=== PATIENT | male | born 1935 | race Caucasian/White ===

== ENCOUNTER 2016-09-18 10:07 | Inpatient (IN) | payer OTHER ==
--- NOTE | 2016-09-18 11:43 | PROVIDER DOCUMENTATION ---
HPI-Syncope/Dizziness - General Chief Complaint: Fall Stated Complaint: DIZZINESS/VOMITING Time Seen by Provider: 09/18/16 11:08 Source: patient Allergies/Adverse Reactions: Patient Allergies Allergy/AdvReac Type Severity Reaction Status Date / Time No Known Allergies Allergy Verified 03/30/16 09:45 Home Medications: Home Medication List Medication Instructions Recorded Confirmed Last Taken Type Home Meds Unobtainable 03/30/16 03/30/16 Unknown History - History of Present Illness-Syncope/Dizzy Nature of Presenting Problem: Pt is 81 y/o M presents to the ED with dizziness. Pt states feeling dizzy then falling. Pt denies pain or injury. Pt's family member states he has not ate in three days due to feeling as if he can not swallow food. Pt denies N/V/D. Pt denies hitting head. Prior Episodes: reports: multiple episodes today Onset/Duration: reports: other (2 weeks) Timing: reports: still present, intermittent Position/Activity at time of episode: reports: standing Symptoms prior to episode: reports: injury (fall). denies: headache, lightheaded, visual disturbance, nausea/vomiting, chest pain, racing heart, abdominal pain, back pain, confusion, diaphoresis, recent head trauma, rapid heart beat Context: reports: other (fall) Loss of Consciousness: no loss of consciousness Location of injury. (If syncope resulted in an injury.): reports: none Current Symptoms: reports: dizzy. denies: fever, chills, sweaty, chest pain, breathing difficulty, short of breath, abdominal pain, nausea, vomiting, shoulder pain, arm pain, weakness, lightheaded, headache, pale, weak pulse, headache, blurred vision, lightheaded Recently Seen Here or By Another Healthcare Provider: No - Dizziness Severity in ED: reports: mild Dizziness Related Current/Associated Symptoms: reports: none/feels normal Any recent trauma/injury?: reports: none Modifying Factors: improves with: nothing Patient usually:: reports: walks without assistance Review of Systems - Adult - REVIEW OF SYSTEMS - ADULT Constitutional: denies: chills, fever Eyes: denies: blurred vision, double vision Ears, Nose, Mouth & Throat: denies: ear pain, nose pain, throat pain Cardiovascular: reports: irregular heart rate (tachy). denies: chest pain, heart murmur Respiratory: reports: shortness of breath. denies: cough, wheezing Gastrointestinal: reports: poor appetite. denies: abdominal pain, diarrhea, nausea, vomiting Genitourinary: denies: dysuria, hematuria Musculoskeletal: denies: bone pain, joint pain, neck pain Integumentary: denies: hives, itching Neurological: reports: dizziness/vertigo (dizziness). denies: headache/ migraines Psychiatric: reports: no symptoms reported Endocrine: reports: no symptoms reported Hematologic/Lymphatic: reports: no symptoms reported Allergic/Immunologic: reports: no symptoms reported All Other Systems: Reviewed and Negative Past History - Adult - PAST MEDICAL HISTORY-ADULT Review of Records: reports: Nursing Assessment Review, Medications Reviewed, Social history reviewed & non-contributory. Major Childhood Illnesses: reports: denies history Cardiovascular: reports: HTN Respiratory: reports: COPD Gastrointestinal: reports: denies history Obstetrical/Gynecological: reports: denies history Genitourinary: reports: denies history Musculoskeletal: reports: denies history Neurological: reports: denies history Endocrine/Immune: reports: denies history Other Conditions: reports: denies history - PRIOR SURGERIES/PROCEDURES Surgical/Procedure History: reports: none - IMMUNIZATION STATUS Childhood Immunizations: See Nurse Assessment Flu Vaccine: See Nurse Assessment - FAMILY HISTORY Family History: reviewed, not pertinent - SOCIAL HISTORY Smoking: cigarettes, greater than 1 pack/day Provider spent 3-5 mins advising pt. on dangers of tobacco.: Discussed manners to quit use, and f/u contacts for add'l counseling. Substance Use: denies Living Situation: family Physical Exam-General - PHYSICAL EXAM-ADULT Initial Vital Signs Reviewed: Yes - CONSTITUTIONAL General Appearance: appears well, alert, no apparent distress - EYES Eyes: PERRL/EOMI, pink conjunctivae, fundi clear, no AV nicking - HEAD, EARS, NOSE, MOUTH & THROAT HENMT: normocephalic/atraumatic, normal ENT inspection, TMs normal, pharynx normal. negative: moist mucous membranes (dry) - NECK Neck: non-tender, full range of motion, supple, normal inspection - RESPIRATORY Respiratory: chest non-tender, lungs clear, normal breath sounds, no pleuratic chest pain, no respiratory distress, no accessory muscle use - CARDIOVASCULAR Cardiovascular: normal peripheral pulses, no edema, no gallop, no JVD, no murmur , tachycardia - GASTROINTESTINAL (ABDOMEN) Abdominal Exam: normal bowel sounds, non tender, soft, no organomegaly, no pulsatile mass - LYMPHATIC Lymphatic: no adenopathy - MUSCULOSKELETAL Back Exam: normal inspection, no CVA tenderness, no vertebral tenderness Extremity: normal range of motion, non-tender, normal gait, normal inspection, no pedal edema, no calf tenderness, normal capillary refill, pelvis stable - SKIN Integumentary: normal color, normal turgor, warm/dry - NEUROLOGIC Neurologic: quotation checker II-XII nml as tested, grossly normal, no motor/sensory deficits , positive romberg's sign - PSYCHIATRIC Psych/Mental Status: normal mood/affect, normal thought content, normal thought process, oriented x 3 Progress - PLAN OF CARE/RESULTS Progress/Plan/Lab Results: Orders Category Date Time Status Cardiac Monitoring DIRECTED Care 09/18/16 11:10 Active Finger Stick Blood Sugar (ED) DIRECTED Care 09/18/16 11:10 Active Orthostatic Vital Signs NOW Care 09/18/16 11:11 Active Take Temperature DIRECTED Care 09/18/16 10:39 Active CBC WITH ELECTRONIC DIFF [HEME] Stat Lab 09/18/16 11:10 Ordered CK PROFILE [SP CHEM] Stat Lab 09/18/16 11:10 Ordered COMPREHENSIVE METABOLIC PANEL [CHEM] Stat Lab 09/18/16 11:10 Ordered LACTATE, PLASMA [CHEM] Stat Lab 09/18/16 11:10 Ordered TROPONIN T Stat Lab 09/18/16 11:[address] W/POSS RFLX CULT [URINALYSIS] Stat Lab 09/18/16 11:[address] [URINALYSIS] Stat Lab 09/18/16 10:39 Ordered URINE DRUG SCREEN PL Stat Lab 09/18/16 11:10 Uncollected Pulse Oximetry Stat Oth 09/18/16 11:10 Active EKG [EKG] Stat Ther 09/18/16 11:10 Ordered Vital Signs - 24 hr 09/18/16 10:18 Temperature 98 F Pulse Rate 122 H Respiratory 19 Rate Blood Pressure 113/64 O2 Sat by Pulse 97 Oximetry - EKG 1 Time of EKG reading by physician:: 13:19 EKG Read and Signed by:: Martin Guerrero EKG Interpretation (*Must complete 3 of following elements*): Normal Rate: 100 Rhythm: normal sinus rhythm Comments: normal ECG - CONSULTS/PCP/HOSPITALIST Notification #1 *Consult/PCP/Hospitalist*: Dr. Loyd Time Discussed: 13:57 (Dr. Loyd accepted admit. ) Reason/Comments: Dr. Guerrero consults with Dr. Loyd about admit of Pt Consult Disposition: Admit Departure - Departure Time of Disposition Order: 13:00 DIAGNOSIS: Dizziness, Dehydration, Weakness, Hyponatremia Anemia Qualifiers: Anemia type: unspecified type Qualified Code(s): D64.9 - Anemia, unspecified Disposition: ADMITTED INPATIENT 09 Certified Medical Emergency: Emergent Condition: Stable Additional Instructions: ED Follow Up Instructions: You have been treated by a care provider in the Emergency Department. These instructions are being provided to you so you can have an understanding of how to care for yourself upon discharge. Upon discharge from the Emergency Department, you are responsible for making arrangements for follow-up care by a physician of your choice. Take all prescribed medications as directed. Return to the Emergency Department immediately for any new or worsening symptoms. You may call the Physician Referral phone number at [phone] to obtain a list of Physicians who are taking new patients. Referrals: Loco Loyd MD [Primary Care Provider] - Attestation - Scribe Verification/Attestation Scribe:: Olimpia Orosco Acting as Scribe for:: Martin Guerrero Scribe documention review:: This chart was documented by a scribe and accurately reflects the service the provider performed and the decisions made by the provider.
[2016-09-18] MEDS ORDERED: NS 500 ML IV ONE (11:44)
[2016-09-18] MEDS ORDERED: DUONEB (A & A) INH ONE (11:44)
[2016-09-18 11:59] LABS: BE -1.9 mmoll (-3.0-3.0); BLOOD TYPE ARTERIAL; DRAW SITE R RADIAL; MANUAL DIFF NEEDED? NO; METHB 1.2 % (0.0-1.5); O2(CT) 12.7 mL/dL (15.0-23.0); PCO2(98.6) 31 mmHg (35-45); PO2(98.6) 76 mmHg (60-100); SAMPLE BLOOD; SAO2 97.2 % (95.0-100.0); THB 9.6 g/dL (11.5-17.4); pH(98.6) 7.45 (7.35-7.45)
[2016-09-18 12:02] LABS: ALLEN TEST YES; MODALITY ROOM AIR
[2016-09-18 12:07] LABS: BASO% 0.2 % (0.0-0.8); EOS# 0.08 X1000 (0.0-0.7); EOS% 0.7 % (0.0-10.0); HEMATOCRIT 28.1 % (42.0-52.0); HEMOGLOBIN 8.9 g/dL (14.0-18.0); IMM GRAN# 0.06 X1000 (0.0-0.04); IMM GRAN% 0.5 % (0.0-0.5); LYMPH# 0.52 X1000 (1.2-3.4); LYMPH% 4.4 % (20.5-51.1); MCH 24.7 PG (27-31); MCHC 31.7 g/dL (33-37); MCV 77.8 FL (81-99); MONO# 1.81 X1000 (0.11-0.59); MONO% 15.3 % (1.7-9.3); MPV 9.5 FL (7.4-10.4); NEUT% 78.9 % (42.2-75.2); PLT 553 X1000 (130-400); RBC 3.61 XMIL (4.7-6.1)
[2016-09-18 12:16] LABS: AGAP 11; ALBUMIN 2.6 g/dL (3.5-5.0); ALKALINE PHOSPHATASE 78 U/L (32-122); BUN 20 mg/dL (8-22); CALCIUM 8.2 mg/dL (8.8-10.2); CHLORIDE 95 mmol/L (98-107); CK PROFILE 40 U/L (24-204); COSMO 258; GOT 11 U/L (10-34); GPT 7 U/L (10-44); POTASSIUM 3.8 mmol/L (3.5-5.1); SODIUM 127 mmol/L (136-145); TCO2 21 mmol/L (25-35); TOTAL PROTEIN 6.2 g/dL (6.3-8.3)
--- NOTE | 2016-09-18 13:43 | EKG Report ---
Test Performed on : 09/18/2016 1:19:14 PM Test Reason : AMS Blood Pressure : / mmHG Vent. Rate : 100 BPM Atrial Rate : 100 BPM P-R Int : 166 ms QRS Dur : 070 ms QT Int : 362 ms P-R-T Axes : 080 054 066 degrees QTc Int : 466 ms Normal sinus rhythm. Normal ECG When compared with ECG of 29-MAR-2016 17:51, No significant change was found Unconfirmed Result
--- NOTE | 2016-09-18 14:19 | Diag Imaging Result Document ---
PROCEDURE NAME: CHEST-2 VIEWS - 09/18/2016 2 VIEWS OF THE CHEST: FINDINGS: There may be COPD. There is calcification of the aorta, particularly the ascending aorta. There has been no significant change in the appearance of the chest since 03/29/2016. IMPRESSION: Stable chest.
[2016-09-18 14:39] LABS: URINE SOURCE VOIDED
[2016-09-18 14:54] LABS: BILIRUBIN URINE 1+ (NEGATIVE); BLOOD URINE NEGATIVE (NEGATIVE); CLARITY CLEAR (CLEAR); COLOR AMBER; GLUCOSE URINE NEGATIVE (NEGATIVE); LEUKOCYTES URINE TRACE (NEGATIVE); NITRITE URINE NEGATIVE (NEGATIVE); PH URINE 6.5; PROTEIN URINE 1+(30 mg/dL) mg/dL (NEGATIVE); UROBILINOGEN URINE 1+(1 mg/dL)
[2016-09-18 14:55] LABS: URINE CULTURE PL NEEDED? YES; URINE EPITHELIAL CELLS <10 /HPF (<10); URINE WBC <10 /HPF (<10)
[2016-09-18] MEDS: DUONEB (A & A) INH SCH ×3 (15:50→23:26)
[2016-09-18] MEDS: NICODERM PATCH TD SCH (17:02)
[2016-09-19] MEDS: NS 1,000 ML IV SCH ×3 (02:57→18:39)
[2016-09-19] MEDS: DUONEB (A & A) INH SCH ×7 (03:56→23:38)
[2016-09-19 04:28] LABS: C DIFF ANTIGEN PL NEGATIVE (NEGATIVE); C DIFF TOXIN PL NEGATIVE (NEGATIVE)
[2016-09-19 07:47] LABS: BASO% 0.2 % (0.0-0.8); EOS# 0.09 X1000 (0.0-0.7); EOS% 1.5 % (0.0-10.0); HEMATOCRIT 26.1 % (42.0-52.0); HEMOGLOBIN 8.2 g/dL (14.0-18.0); IMM GRAN# 0.02 X1000 (0.0-0.04); IMM GRAN% 0.3 % (0.0-0.5); LYMPH# 0.42 X1000 (1.2-3.4); MANUAL DIFF NEEDED? YES; MCH 24.6 PG (27-31); MCHC 31.4 g/dL (33-37); MCV 78.1 FL (81-99); MONO# 0.89 X1000 (0.11-0.59); MONO% 14.8 % (1.7-9.3); NEUT% 76.2 % (42.2-75.2); PLT 505 X1000 (130-400); RBC 3.34 XMIL (4.7-6.1)
[2016-09-19 07:54] LABS: AGAP 10; ALBUMIN 2.3 g/dL (3.5-5.0); ALKALINE PHOSPHATASE 89 U/L (32-122); BUN 16 mg/dL (8-22); CALCIUM 7.9 mg/dL (8.8-10.2); CHLORIDE 98 mmol/L (98-107); COSMO 268; GOT 14 U/L (10-34); GPT 7 U/L (10-44); POTASSIUM 3.5 mmol/L (3.5-5.1); SODIUM 133 mmol/L (136-145); TCO2 25 mmol/L (25-35); TOTAL PROTEIN 5.7 g/dL (6.3-8.3)
[2016-09-19 08:39] LABS: BANDS 8 % (0-1); EOS 2 % (1-10); LYMPHS 16 % (21-51); MONO 14 % (1-9)
[2016-09-19] MEDS ORDERED: TYLENOL PO PRN (10:11)
[2016-09-19] MEDS: ZOFRAN IV PRN (10:30)
[2016-09-19] MEDS: NICODERM PATCH TD SCH (11:27)
[2016-09-20] MEDS: DUONEB (A & A) INH SCH ×5 (03:32→20:21)
--- NOTE | 2016-09-20 08:50 | Diag Imaging Result Document ---
PROCEDURE NAME: HEAD/C-SPINE W/O CONTRAST - 09/19/2016 CT SCAN OF THE HEAD AND CERVICAL SPINE WITHOUT CONTRAST: INDICATION: Fall with head laceration. Preliminary interpretation was given by the on-call radiologist. FINDINGS: There is diffuse cerebral atrophy. There is deep white matter hypodensity nonspecific in appearance but likely related to microvascular disease. There is no evidence for acute infarct or hemorrhage. No midline shift or mass effect. The visualized paranasal sinuses and mastoid air cells are clear. IMPRESSION: No acute intracranial abnormality. CT CERVICAL SPINE WITH 3D RECONSTRUCTIONS: FINDINGS: Preliminary interpretation was given by the on-call radiologist. There is no prevertebral soft tissue swelling. There is no fracture or subluxation. There is multilevel degenerative disc disease and spondylosis, C3 to C7. IMPRESSION: 1. Severe spondylosis. 2. No acute abnormality of the cervical spine.
[2016-09-20] MEDS: NICODERM PATCH TD SCH (09:11)
[2016-09-20] MEDS ORDERED: XYLOCAINE-MPF 1% 5 ML ONE (09:14)
[2016-09-20] MEDS: NS 1,000 ML IV SCH ×2 (11:10→17:48)
[2016-09-20] MEDS ORDERED: DEMEROL IV ONE (14:50)
[2016-09-20] MEDS ORDERED: PHENERGAN IV ONE (14:50)
[2016-09-20] MEDS ORDERED: SODIUM CHLORIDE 0.9% INJ ONE (14:50)
--- NOTE | 2016-09-20 17:07 | Diag Imaging Result Document ---
PROCEDURE NAME: ANGIOGRAM/MESENTERIC ARTERY - 09/20/2016 CT ANGIOGRAM OF THE MESENTERIC ARTERIES WITH IV CONTRAST WITH 3D RECONSTRUCTIONS : INDICATION: Evaluate for clot. FINDINGS: There is marked atherosclerotic disease involving the aorta and branch vessels with moderate atherosclerotic plaque and calcification. No discrete aneurysm. Maximal aortic dimension is 2.8 cm. The celiac axis is patent at its origin; however, there is a focal narrowing 1 cm distal to its origin with poststenotic dilatation with an appearance suggesting median arcuate ligament syndrome. There is atherosclerotic plaque at the origin of the SMA; however, it appears narrowed less than 50%. Atherosclerotic calcification continues distally within the superior mesenteric artery. The inferior mesenteric artery is patent although there is calcification at the origin and the degree of stenosis is not adequately characterized. There is no evidence for large vessel thrombus or vascular cutoff. 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 Within the abdomen, there is perihepatic fluid. There is marked colitis involving the proximal transverse colon, extending distally through the splenic flexure, descending colon, and sigmoid colon. The entire pelvis was not included on this CT angiogram of the aorta and mesenteric arteries. The severe colitis demonstrates mucosal enhancement and prominent vessels within the mesentery. There is marked bowel wall thickening and pericolonic soft tissue stranding. There is marked retained fecal material within the cecum and ascending colon. No definite pneumatosis is identified. The liver shows no evidence for portal venous gas. There is no evidence for a pneumoperitoneum. The appendix appears normal. There is a small left pleural effusion and left basilar atelectasis. IMPRESSION: 1. Severe colitis extending from the proximal transverse colon through the sigmoid colon. The rectum was excluded from the radiographic field. There is severe bowel wall thickening as well as pericolonic inflammation and pericolonic fluid. No evidence for large vessel occlusion. No definitive pneumatosis. 2. Marked constipation ascending colon. 3. Marked scattered atherosclerotic disease. 4. 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 5. Left common iliac artery aneursym. Findings were discussed with Dr. Loyd. [facility]
[2016-09-20] MEDS: CIPRO 400 MG/D5W 200 ML IV SCH (17:46)
[2016-09-20] MEDS: FLAGYL 500 MG/NS 100 ML IV SCH (22:18)
[2016-09-21] MEDS: DUONEB (A & A) INH SCH ×7 (00:35→22:53)
[2016-09-21] MEDS: NS 1,000 ML IV SCH ×5 (01:27→23:37)
[2016-09-21] MEDS: FLAGYL 500 MG/NS 100 ML IV SCH ×3 (06:04→21:11)
[2016-09-21 06:38] LABS: HEMATOCRIT 26.9 % (42.0-52.0); HEMOGLOBIN 8.3 g/dL (14.0-18.0); MCH 24.4 PG (27-31); MCHC 30.9 g/dL (33-37); MCV 79.1 FL (81-99); MPV 9.8 FL (7.4-10.4); RBC 3.4 XMIL (4.7-6.1)
[2016-09-21 06:52] LABS: AGAP 13; ALBUMIN 2.1 g/dL (3.5-5.0); ALKALINE PHOSPHATASE 82 U/L (32-122); BUN 8 mg/dL (8-22); CALCIUM 7.7 mg/dL (8.8-10.2); CHLORIDE 100 mmol/L (98-107); COSMO 263; GOT 11 U/L (10-34); GPT 6 U/L (10-44); MAGNESIUM 1.5 mg/dL (1.5-2.7); POTASSIUM 3.3 mmol/L (3.5-5.1); SODIUM 133 mmol/L (136-145); TCO2 20 mmol/L (25-35); TOTAL PROTEIN 5.2 g/dL (6.3-8.3)
[2016-09-21] MEDS: CIPRO 400 MG/D5W 200 ML IV SCH ×2 (07:42→17:50)
[2016-09-21] MEDS: NICODERM PATCH TD SCH (08:21)
[2016-09-22] MEDS: FLAGYL 500 MG/NS 100 ML IV SCH ×3 (04:31→21:23)
[2016-09-22] MEDS: DUONEB (A & A) INH SCH ×6 (04:48→23:13)
[2016-09-22] MEDS: CIPRO 400 MG/D5W 200 ML IV SCH ×2 (05:41→17:15)
[2016-09-22] MEDS: MEGACE LIQUID PO SCH (08:00)
[2016-09-22] MEDS: NS 1,000 ML IV SCH ×3 (08:53→17:18)
[2016-09-22] MEDS: NICODERM PATCH TD SCH (10:03)
--- NOTE | 2016-09-22 18:59 | Diag Imaging Result Document ---
PROCEDURE NAME: ABDOMEN/PELVIS W/CONTRAST - 09/22/2016 CT ABDOMEN PELVIS WITH INTRAVENOUS CONTRAST: COMPARISON: 09/20/2016. FINDINGS: There is essentially stable severe descending colitis. This also involves the sigmoid and rectum. There is extremely severe constipation. All the other findings are also stable from prior. IMPRESSION: 1. No change from prior. 2. Severe distal proctocolitis. 3. Very severe constipation.
[2016-09-23] MEDS: DUONEB (A & A) INH SCH ×6 (03:28→23:09)
[2016-09-23] MEDS: FLAGYL 500 MG/NS 100 ML IV SCH ×3 (05:11→21:00)
[2016-09-23] MEDS: CIPRO 400 MG/D5W 200 ML IV SCH ×2 (06:11→16:57)
[2016-09-23] MEDS: MEGACE LIQUID PO SCH (07:16)
[2016-09-23] MEDS: NICODERM PATCH TD SCH (09:15)
[2016-09-23] MEDS: NS 1,000 ML IV SCH ×4 (09:15→19:22)
[2016-09-23] MEDS ORDERED: GOLYTELY PO ONE (11:30)
[2016-09-23] MEDS: ZOFRAN IV PRN ×2 (12:21→21:00)
[2016-09-23] MEDS ORDERED: LINZESS PO ONE (12:21)
[2016-09-23 14:01] LABS: URINE CULTURE PL NEEDED? NO; URINE SOURCE CATH
[2016-09-23 14:34] LABS: BILIRUBIN URINE NEGATIVE (NEGATIVE); BLOOD URINE NEGATIVE (NEGATIVE); CLARITY CLEAR (CLEAR); COLOR YELLOW; GLUCOSE URINE NEGATIVE (NEGATIVE); LEUKOCYTES URINE TRACE (NEGATIVE); NITRITE URINE NEGATIVE (NEGATIVE); PROTEIN URINE NEGATIVE (NEGATIVE); SP GRAVITY URINE 1.015; UROBILINOGEN URINE NORMAL
[2016-09-24] MEDS: DUONEB (A & A) INH SCH ×4 (04:09→15:30)
[2016-09-24] MEDS: NS 1,000 ML IV SCH ×4 (06:12→21:18)
[2016-09-24] MEDS: ZOFRAN IV PRN ×3 (06:12→12:38)
[2016-09-24] MEDS: FLAGYL 500 MG/NS 100 ML IV SCH ×3 (06:13→21:18)
[2016-09-24] MEDS: CIPRO 400 MG/D5W 200 ML IV SCH ×2 (06:13→18:13)
[2016-09-24] MEDS: LINZESS PO SCH (06:13)
[2016-09-24] MEDS: MEGACE LIQUID PO SCH (08:34)
[2016-09-24] MEDS: NICODERM PATCH TD SCH (08:34)
[2016-09-24 15:36] LABS: BASO% 0.1 % (0.0-0.8); EOS# 0.06 X1000 (0.0-0.7); EOS% 0.5 % (0.0-10.0); HEMATOCRIT 24.8 % (42.0-52.0); HEMOGLOBIN 7.9 g/dL (14.0-18.0); IMM GRAN# 0.05 X1000 (0.0-0.04); IMM GRAN% 0.5 % (0.0-0.5); LYMPH# 0.36 X1000 (1.2-3.4); LYMPH% 3.2 % (20.5-51.1); MANUAL DIFF NEEDED? NO; MCH 24.7 PG (27-31); MCHC 31.9 g/dL (33-37); MCV 77.5 FL (81-99); MONO# 0.96 X1000 (0.11-0.59); MONO% 8.7 % (1.7-9.3); MPV 8.4 FL (7.4-10.4); PLT 387 X1000 (130-400)
[2016-09-24 16:25] LABS: AGAP 14; ALBUMIN 1.6 g/dL (3.5-5.0); ALKALINE PHOSPHATASE 66 U/L (32-122); BUN 5 mg/dL (8-22); CHLORIDE 102 mmol/L (98-107); COSMO 264; GOT 10 U/L (10-34); GPT < 5 U/L (10-44); SODIUM 134 mmol/L (136-145); TCO2 18 mmol/L (25-35); TOTAL PROTEIN 4.4 g/dL (6.3-8.3)
[2016-09-24 16:26] LABS: POTASSIUM 2.4 mmol/L (3.5-5.1)
[2016-09-24 16:27] LABS: CALCIUM 6.7 mg/dL (8.8-10.2)
[2016-09-24] MEDS ORDERED: POTASSIUM CHLORIDE 20 MEQ/SWI 100 ML IV ONE (16:34)
[2016-09-25] MEDS: NS 1,000 ML IV SCH ×3 (03:55→06:44)
[2016-09-25] MEDS: MEGACE LIQUID PO SCH (06:00)
[2016-09-25] MEDS: LINZESS PO SCH (06:00)
[2016-09-25] MEDS ORDERED: BLISTEX MEDICATED BERRY LIP BALM TOP PRN (06:04)
[2016-09-25] MEDS: FLAGYL 500 MG/NS 100 ML IV SCH ×3 (06:44→23:17)
[2016-09-25] MEDS ORDERED: ZOFRAN IV PRN (07:36)
[2016-09-25] MEDS ORDERED: TYLENOL PO PRN (07:36)
[2016-09-25] MEDS ORDERED: NS 1,000 ML IV SCH (08:00)
[2016-09-25] MEDS: ASPIRIN PO SCH (08:56)
[2016-09-25] MEDS: CIPRO 400 MG/D5W 200 ML IV SCH ×2 (08:56→20:25)
[2016-09-25] MEDS: NICODERM PATCH TD SCH (08:56)
[2016-09-25] MEDS: DUONEB (A & A) INH SCH ×4 (12:00→23:30)
[2016-09-25 13:04] LABS: MPV 9.2 FL (7.4-10.4)
[2016-09-25 13:08] LABS: INR 1.51; PROTIME 16.1 Seconds (9.2-11.7)
[2016-09-25] MEDS ORDERED: NS 250 ML ONE (13:54)
[2016-09-25] MEDS ORDERED: SORBITOL PO ONE (16:27)
[2016-09-25] MEDS ORDERED: ALBUMIN 25% IV ONE (16:31)
[2016-09-25] MEDS ORDERED: GOLYTELY PO ONE (16:31)
[2016-09-25] MEDS: CLINIMIX E 4.25%-5% SOLUTION 1,000 ML IV SCH (17:35)
[2016-09-25] MEDS: LIPOSYN 20% 500 ML IV SCH (18:16)
[2016-09-25 18:28] LABS: MANUAL DIFF NEEDED? NO
[2016-09-25 18:44] LABS: BASO% 0.1 % (0.0-0.8); EOS# 0.06 X1000 (0.0-0.7); EOS% 0.7 % (0.0-10.0); HEMATOCRIT 24.2 % (42.0-52.0); HEMOGLOBIN 7.4 g/dL (14.0-18.0); IMM GRAN# 0.03 X1000 (0.0-0.04); IMM GRAN% 0.4 % (0.0-0.5); LYMPH# 0.43 X1000 (1.2-3.4); LYMPH% 5.3 % (20.5-51.1); MCH 24.3 PG (27-31); MCHC 30.6 g/dL (33-37); MCV 79.3 FL (81-99); MONO# 0.82 X1000 (0.11-0.59); MONO% 10.1 % (1.7-9.3); MPV 9.2 FL (7.4-10.4); NEUT% 83.4 % (42.2-75.2); PLT 387 X1000 (130-400); RBC 3.05 XMIL (4.7-6.1)
--- NOTE | 2016-09-25 18:50 | PROGRESS NOTE ---
DATE: 09/25/2016 ADMISSION 09/18/2016 TO [facility]. TRANSFERRED ON 09/24/2016 TO [facility]. SUBJECTIVE: Mr. Robin Flannery is an 81-year-old male. He is in no acute distress. He complains of generalized pain in all 4 quadrants of his abdomen which is semi-distended and semi- firm. He states that he was able to have a small bowel movement today which was liquid in nature. He denies any other pain or any other complications. He denies nausea or vomiting. Mr. Flannery had been followed by Dr. Loyd at [place] prior to transfer. PHYSICAL EXAMINATION: Vital Signs: Temperature is 98.2 degrees, heart rate 107, respiratory rate 18, blood pressure 133/59, O2 saturation 99% on 2 L nasal cannula. General: Mr. Flannery is an 81- year-old male, in no acute distress. Able to answer all questions appropriately. Cardiovascular: S1-S2, tachycardic rate and rhythm. No rubs, gallops murmurs. Pulmonary: Clear to auscultation. Bilateral breath sounds. Prolonged expiratory phase. No accessory muscle use or work of breathing noted. Gastrointestinal: Mildly distended semi-firm and tender in all 4 quadrants. Positive bowel movement today. Extremities: Trace edema in the lower extremities. He has +2 dorsalis and radial pulses. Skin: Warm, dry, intact. LABORATORY DATA: Yesterday, 09/24/2016 labs: White blood cells 11,000, hemoglobin 7.9, hematocrit 24.8, platelet count 387,000. Sodium 134, potassium 2.4, BUN 5, creatinine 0.4, calcium was low at 6.7, magnesium was 1.2, albumin 1.6. We will repeat all labs. He has poor peripheral access so he has received a PICC line. ASSESSMENT AND PLAN: 1. Fall with dizziness, vomiting, decreased appetite, now with severe colitis and severe constipation. He has had an abdominal CT on 09/22/2016 which showed severe distal proctocolitis and very severe constipation. He also had a mesenteric arteriogram on 09/20/2016 which showed severe colitis that extended from the proximal transverse colon through the sigmoid colon. It also showed severe bowel wall thickening as well as pericolonic inflammation and pericolonic fluid but no evidence of large vessel occlusion. It also showed marked constipation in the ascending colon. It showed scattered atherosclerotic disease. Dr. Iglesias has been consulted. This patient was discussed with Dr. Iglesias by Dr. Loyd prior to transfer to [facility]. Reviewing his bowel movement history it appears that he has been having a bowel movement daily that is liquid and brown. Still very decreased appetite. He only has bites here and there. Medication that he is on is Linzess 145 mcg p.o. daily. Could consider adding twice daily stool softener and give a 1 time dose of sorbitol for constipation. I will follow up with Dr. Iglesias's recommendation for his severe colitis. Apparently he also had a dose of GoLYTELY but was unable to keep it down. There was some concern as to whether he was having mesenteric ischemia. 2. Chronic obstructive pulmonary disease. Continue medications. 3. Tobacco abuse. Continue nicotine patch and cessation was discussed. 4. Dehydration. Currently on IV fluid hydration 150/hour which was started this morning. 5. Decreased appetite. He has continued on Megace. 6. Deep venous thrombosis prophylaxis. TEDs. 7. Gastrointestinal prophylaxis. We will add a proton pump inhibitor. Dictated by RAGHAV Turner for Dima Clark MD
[2016-09-25 19:05] LABS: AGAP 14; ALBUMIN 1.4 g/dL (3.5-5.0); ALKALINE PHOSPHATASE 75 U/L (32-122); BUN 8 mg/dL (8-22); CALCIUM 6.7 mg/dL (8.8-10.2); CHLORIDE 98 mmol/L (98-107); COSMO 266; GOT 12 U/L (10-34); GPT 5 U/L (10-44); MAGNESIUM 1.6 mg/dL (1.5-2.7); POTASSIUM 3.8 mmol/L (3.5-5.1); SODIUM 130 mmol/L (136-145); TCO2 18 mmol/L (25-35); TOTAL PROTEIN 4.1 g/dL (6.3-8.3)
--- NOTE | 2016-09-25 19:09 | PROGRESS NOTE ---
DATE: 09/25/2016 SUBJECTIVE: Mr. Flannery was transferred from [place] here yesterday after he had been there for a while. I understand he has been having diarrhea with constipation but according to the patient he actually went. He was having difficulty walking, very weak and he lost a significant amount of weight. OBJECTIVE: Vital signs: Blood pressure is 133/59, pulse of 107, respirations 18, temperature is 98.2 degrees. General Examination: Mr. Flannery is an 81-year-old male. He is in bed, not seemingly distressed. He looks wasted. HEENT: Mucosa is slightly dry. Anicteric. Acyanotic. Neck: Supple. Chest: Good air entry bilaterally. There are a few bibasilar crepitations and expiratory wheezes. Cardiovascular: Regular rate and rhythm. No murmurs, no rubs, no gallops. Abdomen: Soft, distended but nontender. Bowel sounds are hypoactive. There is no hepatosplenomegaly. Extremities: 3+ pedal edema. Central Nervous System : Patient is alert. He is oriented x4. Pin prick sensation is impaired in the lower extremity as well as vibration sense. Position sense is normal. LABORATORY DATA: WBC is 11.08, hemoglobin is 7.9, platelet count of 387,000. Chemistry: Sodium is 124, potassium is 134, potassium is 2.4, chloride is 102 , bicarb is 18, creatinine 0.4, calcium is 6.7, magnesium is 1.2, albumin is 1.6. DIAGNOSTIC STUDIES: 1. CT scan of the abdomen and pelvis which was done showed severe distal proctocolitis with severe constipation. 2. Mesenteric arteriogram shows severe colitis extending from the proximal transverse colon through the sigmoid. There is severe bowel wall thickening as well as pericolic inflammation and pericolic fluid. No evidence of large vessel occlusion. Marked constipation atherosclerotic disease. 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 ASSESSMENT: Mr. Flannery is an 81-year-old male who was initially admitted to [place] with what seems to be severe proctocolitis likely ischemic origin with severe constipation who was brought here for GI consultation. 1. Severe proctocolitis likely due to ischemic etiology. 2. Chronic mesenteric angina. 3. Protein calorie malnutrition. 4. 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 5. Electrolyte imbalance likely due to poor absorption. 6. Severe atherosclerosis at least in the GI system. 7. Tobacco abuse. 8. Severe constipation/obstipation. 9. Microcytic anemia most likely due to underlying iron deficiency anemia. 10. Mild anasarca likely due to hypoalbuminemia. Will give a dose of albumin to help with fluid management. PLAN: 1. We are going to try and optimize patient's nutrition status with Clinimix and lipid infusion. We will consult dietitian to help with diet recommendations. 2. GI has already been consulted and the patient will be waiting for their further recommendations. 3. For now we will continue with both Cipro and metronidazole. 4. We will use GoLYTELY for bowel to help with bowel movements. 5. We will also add the patient on a statin as well as aspirin for the severe atherosclerotic disease. 6. With our general plan patient seems to be relatively steady but he looks chronically sick. We will going to start improving on his nutritional status and work with his GI disease as well as the GI colleagues to see what is next. 7. At this point, I do not think patient has any acute surgical abdomen. 8. I will discontinue the IV fluids at least for now since we will be using Clinimix. [facility]
[2016-09-25] MEDS ORDERED: VITAMIN D PO ONE (19:31)
[2016-09-25] MEDS: PERICOLACE PO SCH (20:06)
[2016-09-25] MEDS: VITAMIN D PO SCH (20:26)
--- NOTE | 2016-09-25 22:34 | CONSULTATION ---
DATE OF CONSULTATION: 09/25/2016 CONSULTING PHYSICIAN: Dima Clark M.D. REASON FOR CONSULTATION: Colitis. HISTORY: This is an 81-year-old white male who has been in the hospital for about a week now. He was at [facility] from where he was transferred here. The patient tells me that he was admitted because he has been weak, lethargic and was unstable on his feet. He lives by himself and has not been able to continue with his regular chores. When he went to the hospital, he was found to be constipated, has a distended colon and possible colitis. He has been on antibiotics as well as laxatives including GoLYTELY but so far his symptoms have not resolved. He continues to deteriorate. Consult was obtained for further treatment. Patient reports no fever or chills. He tells me that he has not had any heartburn or reflux symptoms. He denies any dysphagia or odynophagia but he has not been able to eat much because of postprandial nausea. He has not had any vomiting. He denies any dysuria, polyuria or hematuria. So far he had a CT angiogram to check for mesenteric ischemia which was negative. CT scan of the abdomen shows constipation mostly stool on the right side with a distended bladder. Since then he has had a Hillman catheter in place and is making good urine. PAST MEDICAL HISTORY: Significant for hypertension and COPD. MEDICATIONS: He was only on aspirin at home. Currently he is on albuterol, ipratropium, aspirin, ciprofloxacin, Linzess, Megace, Flagyl, nicotine patch, Zofran, Protonix and Tamar-Colace. ALLERGIES: No known allergies. SOCIAL HISTORY: He lives by himself. He does not smoke now. He used to smoke. He does not drink or take illicit drugs. FAMILY HISTORY: Noncontributory. REVIEW OF SYSTEMS: As per HPI as above. PHYSICAL EXAMINATION: General: On examination, he is a very pleasant white male. He is unkempt, thin built, lying in bed, he is conscious, appears to be weak. Vital Signs: Temperature 98.2 degrees, pulse is 107 per minute, breathing 18, blood pressure 133/59. He is 5 feet 2 inches tall. Weighs 108 pounds. HEENT: Head is atraumatic, normocephalic. Eyes: Conjunctivae is normal. Sclerae anicteric. He has bitemporal wasting. Mouth: Buccal mucosa is moist. Throat is normal. Neck: Supple. No lymphadenopathy or thyromegaly. Chest: Clear to auscultation. Heart: Heart sounds revealed no murmur. Abdomen: Full, soft, and nontender. No mass or visceromegaly noted. Bowel sounds are audible. Extremities: No pedal edema noted. LABS: Reviewed which showed a WBC of 11.08, hemoglobin 7.9, hematocrit 24.8, MCV is 77.5, and platelets were 3 and 47. PTT was 16.1, INR 1.51, sodium 144, potassium 2.4, chloride 102, bicarb 18, BUN is 5, creatinine 0.4, calcium is 6.7, albumin is 1.6 corrected. Calcium is within normal range. Transaminases: AST was 10, ALT 5, and total bilirubin was 0.40. CT scan reviewed. IMPRESSION: This is an 81-year-old gentleman who has presented with generalized weakness and has been found to be constipated with dilated colon with the possibility of colitis which could be ischemic. A CT angiogram was negative and so far he has not responded well to GoLYTELY. He also has significant anemia which is microcytic from chronic blood loss possibly from GI. I do not have any record of him having an EGD or colonoscopy before. At this point instead of going for a colonoscopy while he has the possibility of ischemic or infectious colitis, I would recommend to get a barium enema with water-soluble contrast. After we correct his potassium and other electrolytes and depending on the findings, and if we can get his constipation resolved, I will be able to prep his colon to proceed with endoscopic evaluation both to his upper and lower GI. In the meantime I agree with putting him on TPN, building him up and replenishing his electrolytes, vitamins and further plans made according to his progress from here on. Case was discussed with Dr. Clark.
[2016-09-26] MEDS: DUONEB (A & A) INH SCH ×6 (03:37→22:12)
[2016-09-26] MEDS: CLINIMIX E 4.25%-5% SOLUTION 1,000 ML IV SCH ×2 (05:50→18:20)
[2016-09-26] MEDS: FLAGYL 500 MG/NS 100 ML IV SCH ×2 (06:20→16:17)
[2016-09-26] MEDS: MEGACE LIQUID PO SCH (06:23)
[2016-09-26] MEDS: LINZESS PO SCH (06:23)
[2016-09-26] MEDS: PROTONIX PO SCH (06:23)
[2016-09-26 07:04] LABS: MANUAL DIFF NEEDED? NO
[2016-09-26 07:08] LABS: EOS% 1.7 % (0.0-10.0); HEMATOCRIT 22.7 % (42.0-52.0); LYMPH# 0.44 X1000 (1.2-3.4); LYMPH% 7.3 % (20.5-51.1); MCH 24.1 PG (27-31); MCHC 30.8 g/dL (33-37); MPV 9.3 FL (7.4-10.4); PLT 347 X1000 (130-400); RBC 2.91 XMIL (4.7-6.1)
[2016-09-26 07:23] LABS: AGAP 11; ALBUMIN 2.2 g/dL (3.5-5.0); ALKALINE PHOSPHATASE 55 U/L (32-122); BUN 8 mg/dL (8-22); CHLORIDE 101 mmol/L (98-107); COSMO 271; GOT 8 U/L (10-34); GPT < 5 U/L (10-44); IRON SATURATION 27 %; MAGNESIUM 1.3 mg/dL (1.5-2.7); POTASSIUM 2.8 mmol/L (3.5-5.1); SODIUM 136 mmol/L (136-145); TCO2 24 mmol/L (25-35); TIBC 33 ug/dL; TOTAL BILIRUBIN 0.48 mg/dL (0.20-1.00); TOTAL IRON 9 ug/dL (53-167); TOTAL PROTEIN 4.7 g/dL (6.3-8.3); UNBOUND IRON 24 ug/dL (112-346)
[2016-09-26 07:48] LABS: FERRITIN 347 ng/mL (30-400)
[2016-09-26] MEDS ORDERED: POTASSIUM PHOSPHATE 40 MMOL in NS 250 ML IV ONE (08:43)
[2016-09-26] MEDS: ASPIRIN PO SCH (08:45)
[2016-09-26] MEDS: PERICOLACE PO SCH ×2 (08:45→22:39)
[2016-09-26] MEDS: NICODERM PATCH TD SCH (08:46)
[2016-09-26] MEDS: CIPRO 400 MG/D5W 200 ML IV SCH ×2 (08:46→19:54)
--- NOTE | 2016-09-26 09:27 | PROGRESS NOTE ---
DATE: 09/26/2016 SUBJECTIVE: Mr. Flannery is just tired of it and he wants to go home. He is still not able to eat, not able to get food down. His daughter was there and she wants to talk to him more, but he does not want any further tests done, including an EGD. Wants to go home, so we will see if we can arrange hospice. He has lost weight. He does not feel like he is any better. OBJECTIVE: Vital Signs: Afebrile with temp 98.7 degrees, pulse 114, respirations 16, blood pressure 137/63. Eyes: Pupils are equal, round. Lungs: Clear anterolateral Cardiovascular: Regular rhythm and rate without murmur or S3. : Urine output from yesterday about 1200 mL. LAB: White count 6000, hematocrit was 22, platelet count 342,000. Sodium 136, potassium 2.8, chloride 101, bicarbonate 24, BUN 8, creatinine 0.5. We will supplement some potassium. Calcium was 7.0, phosphorus 1.8. So, I will give him some K-Phos. His albumin was 2.2. ASSESSMENT AND PLAN: 1. This is an 81-year-old, who presented with generalized weakness. Has been found to be constipated, dilated colon, possibly colitis which could be ischemic. CT angiogram was negative in so far has not responded to GoLYTELY. Also, with significant anemia which is microcytic. Chronic blood loss possibly from gastrointestinal. Do not have any record of him having esophagogastroduodenoscopy or colonoscopy. He does not want that, he wants to go home, he wants to quit. He does not want to pursue percutaneous endoscopic gastrostomy feeding or nasogastric feeding, but he cannot get food down. Dr. Iglesias recommends barium enema, water- soluble contrast, wants to correct his potassium and see if we can get his constipation resolved. We will see if we can honor his wishes and get hospice involved. I think he is on parenteral nutrition. I will give him some K-Phos today. Albumin is significantly low. 2. Significant protein calorie malnutrition. He is getting vitamin D 50,000 units a day, Protonix 40 mg p.o. daily. He is on Clinimix at 75 mL an hour with fat emulsion's 11 mL an hour. He is on nicotine patch. He is on sennoside docusate 1 b.i.d. He is on Megace 400 mg p.o. I think with meals. He is on Flagyl every 8 hours as needed. He is on ciprofloxacin I think 400 mg intravenous every 12 hours.
--- NOTE | 2016-09-26 12:34 | PROGRESS NOTE ---
DATE: 09/26/2016 SUBJECTIVE: Patient is lying in bed in no acute distress. His daughter is at the bedside. Apparently patient was getting upset and wanted to go home. He is cooperative at present time. He is willing to stay and finish workup and hopefully go home soon. He has been evaluated by hospice. OBJECTIVE: Vital Signs: Temperature 98.9, pulse 105, respirations 22, blood pressure 144/57. Generally: Patient is awake and alert. No acute distress. Respiratory: Lung sounds clear bilaterally. Cardiovascular: Regular rate and rhythm. Abdomen: Some tenderness with palpation. Hypoactive bowel sounds. LABORATORY: Hematology: White count 6.0, hemoglobin 7.0, hematocrit 22.7, MCV 78. Coagulation: Pro time 6.1, INR 1.51. Chemistry: Sodium 136, potassium 2.8, chloride 101, CO2 24, BUN 8 creatinine 0.5. Glucose 115. Calcium 7.0. Phosphorus 1.8. Magnesium 1.3. Iron 9. TIBC 33, percent saturation 27. Ferritin 347. ASSESSMENT: 1. Constipation. 2. Colitis possible ischemic. 3. Protein calorie malnutrition. 4. Electrolyte imbalance. 5. Anemia. PLAN: Continue supportive care, medications and IV fluids. Replace electrolytes. He is receiving Clinimix and lipids. He did have some results from bowel prep and we will order a water- soluble barium enema today. Further plans will be made according to findings. I have discussed this case with Dr. Castro. Dictated by RAGHAV Perkins for Jermaine Iglesias MD
[2016-09-26] MEDS ORDERED: FLEET ENEMA PR ONE (14:18)
[2016-09-26] MEDS: LIPOSYN 20% 500 ML IV SCH (18:20)
[2016-09-27] MEDS: FLAGYL 500 MG/NS 100 ML IV SCH ×3 (00:06→15:23)
[2016-09-27] MEDS: PROTONIX PO SCH (06:09)
[2016-09-27] MEDS: LINZESS PO SCH (06:09)
[2016-09-27] MEDS: MEGACE LIQUID PO SCH (06:09)
[2016-09-27 07:28] LABS: BASO% 0.1 % (0.0-0.8); EOS# 0.16 X1000 (0.0-0.7); EOS% 2.4 % (0.0-10.0); HEMOGLOBIN 7.3 g/dL (14.0-18.0); IMM GRAN# 0.03 X1000 (0.0-0.04); IMM GRAN% 0.4 % (0.0-0.5); LYMPH# 0.52 X1000 (1.2-3.4); LYMPH% 7.8 % (20.5-51.1); MANUAL DIFF NEEDED? YES; MCH 24.7 PG (27-31); MCHC 31.7 g/dL (33-37); MCV 77.7 FL (81-99); MONO# 0.57 X1000 (0.11-0.59); MONO% 8.5 % (1.7-9.3); MPV 9.9 FL (7.4-10.4); NEUT% 80.8 % (42.2-75.2); PLT 350 X1000 (130-400); RBC 2.96 XMIL (4.7-6.1)
[2016-09-27] MEDS: DUONEB (A & A) INH SCH ×5 (07:38→23:05)
[2016-09-27 07:46] LABS: AGAP 10; ALBUMIN 2.1 g/dL (3.5-5.0); ALKALINE PHOSPHATASE 53 U/L (32-122); BUN 10 mg/dL (8-22); CALCIUM 7.2 mg/dL (8.8-10.2); CHLORIDE 98 mmol/L (98-107); COSMO 267; GOT 10 U/L (10-34); GPT < 5 U/L (10-44); MAGNESIUM 1.4 mg/dL (1.5-2.7); SODIUM 134 mmol/L (136-145); TCO2 26 mmol/L (25-35); TOTAL BILIRUBIN 0.43 mg/dL (0.20-1.00); TOTAL PROTEIN 4.8 g/dL (6.3-8.3)
[2016-09-27] MEDS: CIPRO 400 MG/D5W 200 ML IV SCH (08:17)
[2016-09-27] MEDS: ASPIRIN PO SCH ×2 (08:23→08:37)
[2016-09-27] MEDS: PERICOLACE PO SCH ×3 (08:23→20:10)
[2016-09-27 08:25] LABS: BANDS 28 % (0-1); EOS 2 % (1-10); LYMPHS 8 % (21-51); MONO 6 % (1-9)
[2016-09-27] MEDS: NICODERM PATCH TD SCH (08:26)
[2016-09-27] MEDS: CLINIMIX E 4.25%-5% SOLUTION 1,000 ML IV SCH (08:26)
--- NOTE | 2016-09-27 12:57 | Diag Imaging Result Document ---
PROCEDURE NAME: BARIUM ENEMA - 09/27/2016 WATER SOLUBLE ENEMA: FINDINGS: Water soluble contrast was instilled by gravity into the rectum. There is considerable retained stool, particularly in the cecum. The entire colon is filled, however. There is considerable mucosal irregularity from about the middescending colon distally, consistent with erosions and colitis. The mucosal folds in the midtransverse colon are somewhat thickened, but actually the mucosal folds are not as thickened in appearance as they were on the spotlight operator view. Presumably this is largely due to better distention of the right colon. A fair amount of contrast was evacuated by the patient after the end of the procedure. There is still considerable retained contrast and stool in the right colon, however. IMPRESSION: Mucosal thickening and ulceration, particularly in the left colon. This is consistent with colitis. No evidence of obstructing lesions. FLUOROSCOPIC TIME: 1 minute 6 seconds for a dose of 1885.1 cGy/cm2.
--- NOTE | 2016-09-27 13:48 | PROGRESS NOTE ---
DATE: 09/27/2016 SUBJECTIVE: The patient is having stools with some mixed blood after his barium enema. Water- soluble barium enema showed mucosal thickening and ulceration, particularly in the left colon, consistent with colitis. No evidence of obstructive lesions. There was still a fair amount of stool in the colon. OBJECTIVE: Vital Signs: Temperature 99.1 degrees, pulse 104, respirations 16, blood pressure 123/55. General: The patient is awake and alert, in no acute distress. He denies any abdominal pain. He is having some liquid stools with noted blood streaks with brown stool. Abdomen: Soft, nontender. Positive bowel sounds. LABORATORY DATA: Hematology: WBC 6.69, hemoglobin 7.3, hematocrit 23.0, MCV 77.7, platelets 350,000. Chemistry: Sodium 134, potassium 3.0, chloride 98, CO2 of 26. ASSESSMENT: 1. Colitis. 2. Lower gastrointestinal bleeding. 3. Anemia. 4. Electrolyte imbalance. 5. Protein calorie malnutrition. PLAN: Repeat hemoglobin and hematocrit. Transfuse 2 units of packed red blood cells. Will proceed with a flexible sigmoidoscopy when able. Further plans will be made as needed. I have discussed this plan with the patient along with his family who is at the bedside, and they wish to proceed. Further plans will be made by Dr. Iglesias. Dictated by RAGHAV Perkins for Jermaine Iglesias MD
[2016-09-27] MEDS ORDERED: GOLYTELY PO ONE (15:00)
[2016-09-27 15:03] LABS: HEMATOCRIT 19.6 % (42.0-52.0); HEMOGLOBIN 6.1 g/dL (14.0-18.0)
[2016-09-27] MEDS ORDERED: POTASSIUM CHLORIDE 40 MEQ/SWI 100 ML IV ONE (16:55)
[2016-09-27] MEDS ORDERED: MAGNESIUM SULFATE 2 GM/S.W.I. 50 ML IV ONE (16:55)
[2016-09-27] MEDS ORDERED: NS 500 ML ONE (17:22)
--- NOTE | 2016-09-27 17:26 | PROGRESS NOTE ---
DATE: 09/27/2016 SUBJECTIVE: Mr. Flannery is awake and alert. No complaints of pain. Still not swallowing. OBJECTIVE: Vital Signs: Temp 98.6 degrees, pulse 104, respirations 16, blood pressure 112/53. Lungs: Clear in all lung bernstein. Cardiovascular: Exam reveals regular rhythm and rate without murmur or S3. Abdomen: Soft. Skin: Warm and dry. : Urine output 656 mL. LABS: White count 6690, hematocrit 23, platelet count 350,000. Electrolytes: Sodium 134, potassium 3.0, chloride 98, bicarbonate 26, BUN 10, creatinine 0.4, magnesium was 1.4. ASSESSMENT/PLAN: 1. So we will supplement the potassium and magnesium. Dr. Iglesias is seen. Barium enema was performed. Gave 2 units of packed red blood cells. We will proceed with flexible sigmoidoscopy when able. The barium enema showed mucosal thickening ulceration, particularly in the left colon consistent with colitis. 2. Protein calorie malnutrition. Gave him vitamin D 3 at 50,000 units a day. Protonix 40 mg p.o. daily and Clinimix at 75 mL an hour. He does have a nicotine patch. Review of his orders: I do not see any change. Yesterday he was wanting to quit everything and go with hospice. I think he is very discouraged. He is on vitamin D 3 50,000 units every week. He is on the Protonix 40 mg p.o. daily, Clinimix 75 mL an hour, Sennoside docusate 1 b.i.d., nicotine patch 21 mg a day, Megace 400 mg p.o. before breakfast, Linzess 145 mcg daily, Flagyl getting 500 mg IV q. 8 hours, ciprofloxacin 200 mg IV q. 12 hours, and aspirin 81 mg a day.
[2016-09-27] MEDS ORDERED: NS 500 ML IV SCH (17:30)
[2016-09-27] MEDS: MAG-OX PO SCH (20:10)
[2016-09-27] MEDS: KLOR-CON PO SCH (20:10)
[2016-09-28] MEDS: DUONEB (A & A) INH SCH ×7 (03:33→23:21)
[2016-09-28] MEDS: CLINIMIX E 4.25%-5% SOLUTION 1,000 ML IV SCH ×2 (03:47→14:28)
[2016-09-28] MEDS: LIPOSYN 20% 500 ML IV SCH (03:48)
[2016-09-28] MEDS: FLAGYL 500 MG/NS 100 ML IV SCH ×3 (03:49→18:35)
[2016-09-28] MEDS: CIPRO 400 MG/D5W 200 ML IV SCH ×2 (04:58→17:00)
[2016-09-28 06:42] LABS: MANUAL DIFF NEEDED? NO
[2016-09-28] MEDS: MEGACE LIQUID PO SCH (06:54)
[2016-09-28] MEDS: PROTONIX PO SCH (06:54)
[2016-09-28] MEDS: LINZESS PO SCH (06:54)
[2016-09-28 07:01] LABS: BASO% 0.2 % (0.0-0.8); EOS# 0.11 X1000 (0.0-0.7); HEMATOCRIT 29.6 % (42.0-52.0); HEMOGLOBIN 9.8 g/dL (14.0-18.0); IMM GRAN# 0.02 X1000 (0.0-0.04); IMM GRAN% 0.4 % (0.0-0.5); LYMPH# 0.55 X1000 (1.2-3.4); MCH 26.3 PG (27-31); MCHC 33.1 g/dL (33-37); MCV 79.4 FL (81-99); MONO# 0.42 X1000 (0.11-0.59); MONO% 7.6 % (1.7-9.3); NEUT% 79.8 % (42.2-75.2); PLT 273 X1000 (130-400); RBC 3.73 XMIL (4.7-6.1)
[2016-09-28 07:27] LABS: AGAP 10; ALBUMIN 1.8 g/dL (3.5-5.0); ALKALINE PHOSPHATASE 57 U/L (32-122); BUN 8 mg/dL (8-22); CHLORIDE 98 mmol/L (98-107); COSMO 266; GOT 11 U/L (10-34); GPT 5 U/L (10-44); MAGNESIUM 1.8 mg/dL (1.5-2.7); POTASSIUM 3.8 mmol/L (3.5-5.1); SODIUM 133 mmol/L (136-145); TCO2 25 mmol/L (25-35); TOTAL BILIRUBIN 1.04 mg/dL (0.20-1.00); TOTAL PROTEIN 4.4 g/dL (6.3-8.3)
[2016-09-28] MEDS: NICODERM PATCH TD SCH (08:18)
[2016-09-28] MEDS: MAG-OX PO SCH ×2 (08:18→22:13)
[2016-09-28] MEDS: PERICOLACE PO SCH ×2 (08:18→22:13)
[2016-09-28] MEDS: KLOR-CON PO SCH ×2 (08:19→22:13)
--- NOTE | 2016-09-28 09:35 | PROGRESS NOTE ---
DATE: 09/28/2016 SUBJECTIVE: He is feeling better. He is able to swallow his medicine today well. He is going to go for a flexible sigmoidoscopy, I believe. I think he is a little more encouraged. OBJECTIVE: Vital signs: Temp 98.1 degrees, pulse 100, respirations 20, blood pressure 150/65. HEENT: Pupils are equal and round. Lungs: Clear in all lung bernstein. Cardiovascular: Regular rhythm and rate without murmur or S3. Abdomen: Soft. Intake and output: Urine output was over 1100 mL. LAB: Reviewed from today. ASSESSMENT AND PLAN: 1. Plan is for a flexible sigmoidoscopy today. I suspect some colitis. May get a biopsy. Has a history of lower GI bleed and anemia. 2. Electrolyte imbalance. Supplement as we need. 3. Protein calorie malnutrition. Try and see if we can get him back to swallowing. He is able to swallow tablets well which is encouraging. Note his barium enema showed mucosal thickening and ulceration particularly in the left colon which is consistent with colitis. He had an abdominal pelvic CT on 09/22, severe distal proctocolitis, severe constipation at that time. He had a mesenteric arteriogram done on 09/20, severe colitis extending from the proximal transverse colon through the sigmoid colon. Rectum was excluded from the radiographic field. There was severe bowel thickening as well as pericolonic inflammation and pericolonic fluid, marked constipation at that time, scattered atherosclerotic disease. 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
[2016-09-28] MEDS: ASPIRIN PO SCH (11:18)
[2016-09-28] MEDS ORDERED: MYLICON DROPS (DOSE) MISC ONE (13:19)
[2016-09-28] MEDS ORDERED: DIPRIVAN 1% ONE (13:52)
[2016-09-28] MEDS ORDERED: XYLOCAINE-MPF 2% ONE (14:04)
[2016-09-28] MEDS ORDERED: LR 1,000 ML ONE (14:04)
[2016-09-28] MEDS ORDERED: ANESTHESIA PB SET 88 IN 5742 ONE (14:04)
--- NOTE | 2016-09-28 18:44 | OPERATIVE NOTE ---
PROCEDURE DATE: 09/28/2016 PROCEDURE: Colonoscopy and biopsy. PREOPERATIVE DIAGNOSIS: Rectal bleeding and possible colitis. POSTOPERATIVE DIAGNOSIS: Colitis left colon biopsied, infectious versus ischemic. MEDICATION: MAC as per Anesthesia SCOPE: Olympus CF HQ 190. HISTORY: This 81-year-old gentleman was admitted to the hospital after he presented with weakness and lethargy and failure to thrive. During his evaluation he was found to have severe constipation and significant colitis involving the left colon. He has been on antibiotic for possible infectious colitis but he continues to deteriorate. Endoscopy was done to identify the etiology and treat accordingly. DESCRIPTION OF PROCEDURE: Informed consent obtained from the patient. Procedure risks, benefits, alternatives were explained in layman's terms. He understood. All his pertinent questions were answered. Patient was brought to the endoscopy unit and was premedicated as per Anesthesia. After adequate sedation, while he was lying in left lateral position, digital rectal exam was performed, which was normal. The scope was then gently introduced into the rectum and advanced under direct vision through the parts of colon, all the way up to the cecum. The cecum was identified by ileocecal valve and appendiceal orifice. The scope was withdrawn paying careful attention to details. Preparation was good. The visualized portion of the colon revealed normal cecum, ascending colon, transverse colon, but from the splenic flexure all the way up the rectum the mucosa of the colon was hyperemic, edematous and ulcerated in patches. There was some whitish exudate adherent to the area. The exudates were suggestive of possible infectious colitis. Multiple biopsies were obtained. I did not do any retroflexed view of rectum because of his severe involvement of the rectum. The scope was then removed. Patient tolerated procedure well with no complications noted. Patient was then transferred to the recovery area in a stable condition. IMPRESSION: Severe colitis involving the left colon, biopsied. Colitis most likely infectious or ischemic. RECOMMENDATION: Advised to continue antibiotic, continue low-fiber low-residue diet for now and advance diet as his symptoms improve. We will follow up the biopsy report and follow the patient's progress. I have explained the findings to patient's family members on the telephone and they understood. All the pertinent questions answered.
[2016-09-29] MEDS: LIPOSYN 20% 500 ML IV SCH (03:16)
[2016-09-29] MEDS: FLAGYL 500 MG/NS 100 ML IV SCH ×3 (03:16→18:39)
[2016-09-29] MEDS: DUONEB (A & A) INH SCH ×6 (03:19→23:35)
[2016-09-29] MEDS: CLINIMIX E 4.25%-5% SOLUTION 1,000 ML IV SCH ×2 (03:21→14:30)
[2016-09-29] MEDS: CIPRO 400 MG/D5W 200 ML IV SCH ×2 (04:50→16:35)
[2016-09-29 05:43] LABS: MANUAL DIFF NEEDED? NO
[2016-09-29 05:53] LABS: BASO% 0.2 % (0.0-0.8); EOS# 0.08 X1000 (0.0-0.7); EOS% 1.8 % (0.0-10.0); HEMATOCRIT 34.8 % (42.0-52.0); HEMOGLOBIN 11.6 g/dL (14.0-18.0); IMM GRAN# 0.02 X1000 (0.0-0.04); IMM GRAN% 0.4 % (0.0-0.5); LYMPH# 0.49 X1000 (1.2-3.4); LYMPH% 10.7 % (20.5-51.1); MCH 26.7 PG (27-31); MCHC 33.3 g/dL (33-37); MONO# 0.37 X1000 (0.11-0.59); MONO% 8.1 % (1.7-9.3); MPV 9.8 FL (7.4-10.4); NEUT% 78.8 % (42.2-75.2); PLT 277 X1000 (130-400); RBC 4.35 XMIL (4.7-6.1)
[2016-09-29] MEDS: MEGACE LIQUID PO SCH (06:19)
[2016-09-29] MEDS: LINZESS PO SCH (06:19)
[2016-09-29] MEDS: PROTONIX PO SCH (06:21)
[2016-09-29 06:32] LABS: AGAP 8; ALBUMIN 1.8 g/dL (3.5-5.0); ALKALINE PHOSPHATASE 56 U/L (32-122); BUN 9 mg/dL (8-22); CALCIUM 7.5 mg/dL (8.8-10.2); CHLORIDE 96 mmol/L (98-107); COSMO 263; GOT 11 U/L (10-34); GPT < 5 U/L (10-44); MAGNESIUM 1.9 mg/dL (1.5-2.7); POTASSIUM 4.7 mmol/L (3.5-5.1); SODIUM 131 mmol/L (136-145); TCO2 27 mmol/L (25-35); TOTAL BILIRUBIN 0.56 mg/dL (0.20-1.00); TOTAL PROTEIN 5.1 g/dL (6.3-8.3)
[2016-09-29] MEDS: MAG-OX PO SCH ×2 (09:50→22:32)
[2016-09-29] MEDS: KLOR-CON PO SCH ×2 (09:50→22:33)
[2016-09-29] MEDS: PERICOLACE PO SCH ×2 (09:50→22:33)
[2016-09-29] MEDS: ASPIRIN PO SCH (09:50)
[2016-09-29] MEDS: NICODERM PATCH TD SCH (09:51)
--- NOTE | 2016-09-29 12:59 | PROGRESS NOTE ---
DATE: 09/29/2016 SUBJECTIVE: The patient states he is feeling better. OBJECTIVE: The patient is sitting up in the bed. He was eating some lunch. He does not eat a lot of solid foods, but he does drink some of the Ensure and Boost. A colonoscopy was done on 09/28/2016 that showed colitis in the left colon, questionable infectious versus ischemic. Biopsy was done. The patient denies any further bleeding. Vital signs: Temperature is 98.4, pulse 109, respirations 18, blood pressure 163/70. General: The patient is awake and alert, in no acute distress. Lungs sound essentially clear. Abdomen is soft, nontender. DIAGNOSTIC DATA: Hematology shows white count of 4.56, hemoglobin 11.6, hematocrit 34.8, platelets 277. ASSESSMENT AND PLAN: 1. Rectal bleeding. 2. Colitis. 3. Anemia which has improved after packed red blood cells. We will follow biopsy report, and further plans will be made as needed. If he is still here on Sunday, we will follow him on Sunday. Otherwise, Dr. Webster is available over the weekend. I have discussed this case with Dr. Iglesias. Dictated by RAGHAV Perkins for Jermaine Iglesias MD
--- NOTE | 2016-09-29 14:27 | PROGRESS NOTE ---
DATE: 09/29/2016 Mr. Flannery is feeling better, able to swallow better so I am going to try him on some food, continue physical therapy. He had a flexible sigmoidoscopy yesterday. He had a pretty good night. He looks encouraged. OBJECTIVE: Temp 98.4 degrees, pulse 109, respirations 18, blood pressure 160/70. Lungs: Are clear in all lung bernstein. Cardiovascular: Regular rhythm and rate without murmur or S3. Urine output over 2 L. LAB: White count 4560, hematocrit 34, platelet count 277,000, sodium 131, potassium 4.7, chloride 98.6, bicarb 27, BUN 9, creatinine 0.4, calcium was 7.5, albumin 1.8. ASSESSMENT AND PLAN: 1. Colitis, coloproctitis. Has severe colitis involving left colon. Biopsy colitis. Most likely infectious or ischemic. Continue present treatment. 2. Severe protein calorie malnutrition. He seems to be swallowing better so encourage him to see if we can get a little more food down. 3. Electrolyte imbalance supplement as needed. 4. General weakness and deconditioning. Continue present physical therapy. 5. Note his labs look good. Renal function looks good. Sodium 131, potassium 4.7, chloride 96, BUN 9, creatinine 0.4. Review his orders again and continue his present regimen. He is still on Clinimix.
[2016-09-30] MEDS: LIPOSYN 20% 500 ML IV SCH (03:12)
[2016-09-30] MEDS: CLINIMIX E 4.25%-5% SOLUTION 1,000 ML IV SCH ×2 (03:13→16:17)
[2016-09-30] MEDS: FLAGYL 500 MG/NS 100 ML IV SCH ×3 (03:13→18:06)
[2016-09-30] MEDS: DUONEB (A & A) INH SCH ×6 (03:46→23:26)
[2016-09-30] MEDS: CIPRO 400 MG/D5W 200 ML IV SCH ×2 (04:25→15:20)
[2016-09-30 06:01] LABS: MANUAL DIFF NEEDED? NO
[2016-09-30 06:05] LABS: BASO% 0.2 % (0.0-0.8); EOS# 0.14 X1000 (0.0-0.7); EOS% 2.6 % (0.0-10.0); HEMATOCRIT 30.9 % (42.0-52.0); HEMOGLOBIN 10.2 g/dL (14.0-18.0); IMM GRAN# 0.02 X1000 (0.0-0.04); IMM GRAN% 0.4 % (0.0-0.5); LYMPH# 0.52 X1000 (1.2-3.4); LYMPH% 9.5 % (20.5-51.1); MCV 81.7 FL (81-99); MONO# 0.55 X1000 (0.11-0.59); MONO% 10.1 % (1.7-9.3); MPV 9.7 FL (7.4-10.4); NEUT% 77.2 % (42.2-75.2); PLT 285 X1000 (130-400); RBC 3.78 XMIL (4.7-6.1)
[2016-09-30] MEDS: MEGACE LIQUID PO SCH (06:15)
[2016-09-30] MEDS: PROTONIX PO SCH (06:15)
[2016-09-30] MEDS: LINZESS PO SCH (06:15)
[2016-09-30 06:25] LABS: AGAP 9; ALBUMIN 1.8 g/dL (3.5-5.0); ALKALINE PHOSPHATASE 58 U/L (32-122); BUN 15 mg/dL (8-22); CALCIUM 7.5 mg/dL (8.8-10.2); CHLORIDE 98 mmol/L (98-107); COSMO 265; GOT 11 U/L (10-34); GPT 5 U/L (10-44); MAGNESIUM 1.8 mg/dL (1.5-2.7); POTASSIUM 5.5 mmol/L (3.5-5.1); SODIUM 132 mmol/L (136-145); TCO2 25 mmol/L (25-35); TOTAL BILIRUBIN 0.33 mg/dL (0.20-1.00); TOTAL PROTEIN 4.9 g/dL (6.3-8.3)
[2016-09-30] MEDS: ASPIRIN PO SCH (09:00)
[2016-09-30] MEDS: MAG-OX PO SCH ×2 (09:02→23:33)
[2016-09-30] MEDS: NICODERM PATCH TD SCH (09:03)
[2016-09-30] MEDS: KLOR-CON PO SCH ×2 (09:03→23:33)
[2016-09-30] MEDS: PERICOLACE PO SCH ×2 (09:03→23:33)
--- NOTE | 2016-09-30 13:04 | PROGRESS NOTE ---
DATE: 09/30/2016 Mr. Flannery looks like he is a little more alert and awake and he feels a little stronger. He has been able to swallow some foods and that is encouraging. Still has his Hillman catheter in. Temperature 98 degrees, pulse 80, respirations 16, blood pressure 147/84.HEENT: Pupils are equal round. CVP less than 6 cm. Lungs: Clear in all lung bernstein. Cardiovascular: Regular rhythm and rate without murmur or S3. Abdomen: Soft. Skin: Is warm and dry. Urine output was 3400 mL. LAB: Looks good. White count 5470, hematocrit 30, platelet count 285,000. Sodium 132, potassium 5.0, chloride 98, bicarb 25, BUN 15, creatinine 0.4. Calcium is coming up a little bit 7.5. His albumin was 1.8. ASSESSMENT AND PLAN: 1. Had a flexible sigmoidoscopy. Biopsies I think were obtained for proctocolitis. Continue present treatment. Not sure if it is infectious but it is suspected infectious but possibly ischemic as well. 2. Continue to supplement electrolytes. 3. Protein calorie malnutrition with low albumin. Encourage p.o. intake. He has not been swallowing for a while. The report is that he has lost between 40-60 pounds over the last 3 months and this is probably secondary to colitis, probably secondary to not being able swallow very well. Whatever reason, he is swallowing better and general strength seems to be improving so I think we will try to aim to go to rehab Sunday or Sunday. Continue to work on it. He is on Clinimix 75 mL an hour. He is on Protonix 40 mg p.o. daily, vitamin D3 38717 units q.week, magnesium oxide 800 mg b.i.d. He is on normal saline. He is still on Cipro and he is on Flagyl. He is also taking Linzess 145 mcg daily. He is on Megace. He is on a nicotine patch. So will continue present regimen.
[2016-10-01] MEDS: FLAGYL 500 MG/NS 100 ML IV SCH ×3 (03:04→18:20)
[2016-10-01] MEDS: LIPOSYN 20% 500 ML IV SCH (03:04)
[2016-10-01] MEDS: DUONEB (A & A) INH SCH ×5 (03:20→23:19)
[2016-10-01] MEDS: CIPRO 400 MG/D5W 200 ML IV SCH ×2 (04:52→17:00)
[2016-10-01] MEDS: CLINIMIX E 4.25%-5% SOLUTION 1,000 ML IV SCH ×2 (04:52→20:35)
[2016-10-01] MEDS: MEGACE LIQUID PO SCH (07:51)
[2016-10-01] MEDS: LINZESS PO SCH (07:51)
[2016-10-01] MEDS: PROTONIX PO SCH (07:51)
[2016-10-01] MEDS: NICODERM PATCH TD SCH (08:54)
[2016-10-01] MEDS: PERICOLACE PO SCH ×2 (08:54→20:36)
[2016-10-01] MEDS: MAG-OX PO SCH ×2 (08:54→20:34)
[2016-10-01] MEDS: KLOR-CON PO SCH ×2 (08:55→20:35)
[2016-10-01] MEDS: ASPIRIN PO SCH (09:00)
[2016-10-01] MEDS: FOLIC ACID PO SCH ×2 (14:12→20:35)
--- NOTE | 2016-10-01 15:20 | PROGRESS NOTE ---
DATE: 10/01/2016 SUBJECTIVE: Mr. Flannery did pretty well yesterday. Kept his food down. No complaints of nausea. This morning he had an episode of vomiting and emesis and threw up most of his breakfast. Denies any nausea now. No pain. Still working with physical therapy. OBJECTIVE: Vital signs: Remains afebrile. Temp 99.4 degrees, pulse 111, respirations 16, blood pressure 136/69. Lungs: Clear anterolateral Cardiovascular: Regular rhythm and rate without murmur or S3. Abdomen: Soft. No focal pain. Intake and output: Urine output with over 3 L. LAB: White count 5,470, hematocrit was 30, platelet count 285,000. Sodium 132, potassium 5.5, chloride 98, BUN 15, creatinine 0.4, calcium 7.5, albumin 1.8. ASSESSMENT AND PLAN: 1. He has had a flexible sigmoidoscopy. He has proctocolitis. Continue present treatment. Suspect infectious colitis but also could be ischemic. 2. Supplement electrolytes as needed. 3. Protein calorie malnutrition, low albumin. Encourage p.o. intake. Continue to try and improve on his strength. Continue physical therapy. I do not see any change in the plan. In looking at orders, continue present regimen. His Clinimix is going at 75 mL an hour.
[2016-10-02] MEDS: LIPOSYN 20% 500 ML IV SCH (03:24)
[2016-10-02] MEDS: FLAGYL 500 MG/NS 100 ML IV SCH ×2 (03:25→10:01)
[2016-10-02] MEDS: DUONEB (A & A) INH SCH ×4 (03:45→15:40)
[2016-10-02] MEDS: CIPRO 400 MG/D5W 200 ML IV SCH ×2 (05:23→17:07)
[2016-10-02 06:23] LABS: HEMOGLOBIN 9.5 g/dL (14.0-18.0)
[2016-10-02] MEDS: PROTONIX PO SCH (07:55)
[2016-10-02] MEDS: MEGACE LIQUID PO SCH (07:55)
[2016-10-02] MEDS: LINZESS PO SCH (07:55)
[2016-10-02] MEDS: NICODERM PATCH TD SCH (08:55)
[2016-10-02] MEDS: KLOR-CON PO SCH ×2 (08:55→09:48)
[2016-10-02] MEDS: VITAMIN D PO SCH ×2 (08:55→10:02)
[2016-10-02] MEDS: PERICOLACE PO SCH (08:56)
[2016-10-02] MEDS: ASPIRIN PO SCH (08:56)
[2016-10-02] MEDS: FOLIC ACID PO SCH ×2 (08:56→10:02)
[2016-10-02] MEDS: MAG-OX PO SCH ×2 (08:56→10:02)
[2016-10-02] MEDS ORDERED: CALMOSEPTINE OINTMENT TOP PRN (09:36)
[2016-10-02 09:41] LABS: AGAP 10; BUN 22 mg/dL (8-22); CALCIUM 7.2 mg/dL (8.8-10.2); CHLORIDE 94 mmol/L (98-107); COSMO 262; POTASSIUM 5.6 mmol/L (3.5-5.1); SODIUM 128 mmol/L (136-145); TCO2 24 mmol/L (25-35)
[2016-10-02] MEDS: CLINIMIX E 4.25%-5% SOLUTION 1,000 ML IV SCH (10:01)
[2016-10-02 13:02] VITALS: BP 137/59
--- NOTE | 2016-10-02 13:45 | PROGRESS NOTE ---
DATE: 10/02/2016 SUBJECTIVE: The patient states he is not feeling well. He states he is unable to eat much. Sister states when he eats he has episodes of vomiting and has only been able to tolerate liquids. He does tolerate Boost okay, is not able to eat any solid foods. Patient states that he has trouble swallowing and has vomiting. OBJECTIVE: Vital Signs: Temperature 98.9 degrees, pulse 100, respirations 14, blood pressure 137/59. Generally: Patient is awake, alert, no acute distress. Respiratory: Lung sounds essentially clear. Abdomen: Soft, nontender, positive bowel sounds. LABORATORY RESULTS: Hematology. White count 5.47, hemoglobin 9.5, hematocrit 30.0, MCV 81.7, platelets 285,000. Chemistry. Sodium 128, potassium 5.6, chloride 94, CO2 24, BUN 22, creatinine 0.4, glucose 127. ASSESSMENT AND PLAN: 1. Proctitis. Patient had flexible sigmoidoscopy that confirmed proctocolitis. Is continued on antibiotics. He is still having some rectal bleeding. 2. Anemia has been stable. We will continue to monitor hemoglobin and hematocrit and transfuse packed red blood cells if needed. The patient is having off and on bleeding. 3. Malnutrition. Continue Clinimix and lipids. Patient is tolerating some Ensure and Boost but has not been able to eat solid foods. I will discuss this with Dr. Iglesias and further plans will be made as needed. Dictated by RAGHAV Perkins for Jermaine Iglesias MD
--- NOTE | 2016-10-02 13:48 | DISCHARGE SUMMARY ---
ADMISSION DATE: 09/20/2016 DISCHARGE DATE: 10/02/2016 HISTORY AND HOSPITAL COURSE: Sent over here by [facility]. He presented to the emergency room with dizziness, feeling dizzy, and falling. Denied pain or injury. The patient states that he has not eaten in 3 days. Further reports from family, they feel like he has lost a good deal of weight over the last several months. He lives alone. He has not seen a doctor in years. Past medical history includes hypertension, COPD. CT of the head and cervical spine: Severe spondylosis. No acute abnormality. He had a mesenteric arteriogram on 09/20/2016, severe colitis extending from proximal transverse colon through the sigmoid colon. Rectum was excluded from the radiographic field. There is severe bowel wall thickening as well as pericolitis inflammation and pericolonic fluid. He ended up having a flexible sigmoidoscopy. He did have marked constipation so they worked on that. They were able to clean out his colon. He had an abdominal and pelvic CT done on 09/22/2016 with severe distal proctocolitis, very severe constipation still. So they continued to work on getting his bowels clean. He had a barium enema on 09/27/2016, mucosal thickening and ulceration particular left colon consistent with colitis. No evidence of obstructing lesions. He ended up having a flexible sigmoidoscopy per Dr. Iglesias and that was on 09/28/2016, severe colitis involving the left colon. It was biopsied. Colitis most likely infectious or ischemic. Clinically he seemed to improve. He had some trouble keeping food down. He had some nausea but able to get some Boost down. He had a PICC line placed in the left arm. Very weak still. Some intermittent nausea. At one point he was tired and wanted to just go home, go with hospice, but he did see some improvement and wanted to try and go to rehab. I do see some improvement on his general deconditioning and his weakness. He is able to keep Boost down at this time. His last lab on the , his hematocrit is stable at 30. His electrolytes today, sodium is 128, potassium 5.6, chloride 94, BUN 22, creatinine 0.4. [place] he could go to rehab. Of note, his calcium has remained a little low. I think that will improve with nutrition. DISCHARGE MEDICATIONS: Tylenol as needed q.4-6 hours, DuoNeb if needed. We will stop his Clinimix and pull out his left arm PICC line. Aspirin 81 mg a day. We will continue his Cipro and I will give him 500 mg; he will take twice a day for another 7 days. Vitamin D 49699 units weekly, folic acid 1 mg p.o. b.i.d., Linzess 145 mcg p.o. daily, Mag-Ox 800 mg b.i.d. He is on Megace for his appetite and I guess we will continue that at 400 mg p.o. daily. We will continue his Flagyl but we will do it p.o., 250 mg p.o. b.i.d. NicoDerm patch 21 mg daily for a couple of weeks. Protonix 40 mg a day p.o., Klor-Con 20 mEq p.o. b.i.d., Tamar-Colace 1 b.i.d.
--- NOTE | 2016-10-24 06:22 | HISTORY AND PHYSICAL ---
Mr. Sprague is a regular patient who has chronic obstructive pulmonary disease and peripheral vascular disease, who presented to the ER with dizziness and associated falling, accompanied by some vomiting. Denies any pain or injury from falls. His daughter states that he has not eaten in 3 days due to the feeling that he cannot swallow food, but he denies nausea, vomiting, and diarrhea. In fact, he seems to be constipated. He had a temperature of 98 degrees on presentation, pulse rate of 122, respiratory rate was 19, blood pressure 113/64. O2 saturation was 97%. Had an electrocardiogram that was normal sinus rhythm. He was seen by Dr. Guerrero. The patient alleges that had multiple falls. This has been going off and on for 2 weeks. He was felt to be dehydrated, dizzy, and generalized weakness per Dr. Guerrero. PAST MEDICAL HISTORY: Has a history of hypertension, chronic obstructive pulmonary disease, current very active smoker, and has some peripheral vascular disease as well. He has had some significant weight loss, although he does not recall how much, associated with his poor appetite. SOCIAL HISTORY: He smokes more than 1 pack a day. He is a nondrinker. Denies any substance abuse. REVIEW OF SYSTEMS: He denies any fever, chills, night sweats. There is some weight loss lately.Eyes: No change in vision, no double vision. No visual field issues. ENT: No sinusitis, otitis, or pharyngitis. Cardiovascular: He denies chest pain, murmur, edema, paroxysmal nocturnal dyspnea, or orthopnea. He has an irregular heart rate. Respiratory: He is always short of breath. He had a very limited exercise tolerance. He denies coughing and wheezing. Gastrointestinal: He has poor appetite. Denies belly pain, diarrhea, nausea, and vomiting. Although, when you question him later he describes fullness and no bowel movements. He has been very constipated. Genitourinary: Denies dysuria, hematuria, polyuria. Musculoskeletal: No bone pain, joint pain, or neck pain. Skin: No hives or itching. Neurologic: He denies any headaches or migraines, seizures, or strokes. Psychiatric: Negative. Endocrine: No polyuria, polydipsia, heat, or cold intolerance. Hematological: No bleeding or clotting disorders. Allergic/immunologic: No allergies, eczema, or asthma. PHYSICAL EXAMINATION: GENERAL APPEARANCE: On admission showed a thin white male. VITAL SIGNS: Vital signs already discussed. He was in no obvious distress. EYES: Pupils equal, round, and reactive to light and accommodation. Extraocular movements intact. Sclerae clear. Fundi benign. NOSE AND THROAT: Nares patent. Oropharynx was negative. NECK: Was supple, bounding carotids, without thyromegaly. Midline trachea. No lymphadenopathy. CHEST: Increased AP diameter. Flattened diaphragms. Diminished breath sounds. No consolidative findings. ABDOMEN: Distended. Bowel sounds are present. It was palpable, but somewhat tense and tympanic. He had no lymphadenopathy. BACK: No costovertebral angle tenderness. No vertebral tenderness. EXTREMITIES: Negative for clubbing, cyanosis, or edema. SKIN: Clear, warm, and dry. Mucous membranes were moist. NEUROLOGIC: Was focal. Issues were not appreciated. PSYCHIATRIC: Negative. His database revealed the following on 09/18: White count was 11,820, hematocrit was 28 microcytic, hyperchromic. Platelet count was 553,000. Urinalysis 1020 specific gravity, 1+ protein, trace white cells. Chemistries: Blood gases on admission on 09/18: PH 7.45, pCO2 31, pO2 76, carboxyhemoglobin 2.8. Serologies and clostridium difficile is negative. His admitting sodium was 127, potassium was 3.8, chloride 95, CO2 21, BUN 20, creatinine 0.8. GFR greater than 60. Glucose 99, calcium 8.2. LFTs were normal. Alkaline phosphatase 78, CK 40, troponin less than 0.10. Total protein 6.2, albumin 2.6, lactic acid was 0.9. REASON FOR ADMISSION/DIAGNOSES: 1. Failure to thrive. 2. Abdominal pain. 3. Constipation. 4. Chronic obstructive pulmonary disease.
== END 2016-10-02 17:38 | DRG 393 ==
LOC: P.ED 10:07 → INTOOBSV 10:08 → P.MEDSURG 10:08 → OBSVTOIN 09-20 09:24 → 4N 09-24 20:52
PROVIDERS: ATTEND Emergency Medicine
PROC: 3E0336Z Introduction of Nutritional Substance into Peripheral Vein, Percutaneous Approach (ICD-10-PCS; 2016-09-25)
PROC: 02HV33Z Insertion of Infusion Device into Superior Vena Cava, Percutaneous Approach (ICD-10-PCS; 2016-09-25)
PROC: 30233N1 Transfusion of Nonautologous Red Blood Cells into Peripheral Vein, Percutaneous Approach (ICD-10-PCS; 2016-09-27)
PROC: 0DBG8ZX Excision of Left Large Intestine, Via Natural or Artificial Opening Endoscopic, Diagnostic (ICD-10-PCS; principal; 2016-09-28 13:08)
DX: K55.1 Chronic vascular disorders of intestine (principal); E43 Unspecified severe protein-calorie malnutrition; I77.4 Celiac artery compression syndrome; E86.0 Dehydration; I72.3 Aneurysm of iliac artery; R64 Cachexia; R13.10 Dysphagia, unspecified; E87.8 Other disorders of electrolyte and fluid balance, not elsewhere classified; J43.9 Emphysema, unspecified; A09 Infectious gastroenteritis and colitis, unspecified; Z68.1 Body mass index [BMI] 19.9 or less, adult; I73.9 Peripheral vascular disease, unspecified; R62.7 Adult failure to thrive; K59.00 Constipation, unspecified; I10 Essential (primary) hypertension; F17.210 Nicotine dependence, cigarettes, uncomplicated; N32.89 Other specified disorders of bladder; D50.0 Iron deficiency anemia secondary to blood loss (chronic); M47.812 Spondylosis without myelopathy or radiculopathy, cervical region; Z91.81 History of falling; Z79.82 Long term (current) use of aspirin; Z79.899 Other long term (current) drug therapy
CPT/HCPCS: 36569; 70450; 71020; 72125; 74175; 74177; 74270; 80048; 80053; 81001; 82306; 82550; 82607; 82728; 82746; 82805; 82948; 83540; 83550; 83605; 83735; 84100; 84484; 85014; 85018; 85025; 85027; 85049; 85610; 86850; 86900; 86901; 86920; 87045; 87046; 87088; 87324; 87449; 87804; 88305; 88313; 89055; 93005; 94640; 94761; 96360; J0744; J2175; J2405; J2550; J3475; J3480; J7030; J7040; J7050; J7120; P9016; Q9958; Q9967; S0179; 97116-GP; 97530-GP; P9047; S0030

== ENCOUNTER 2016-10-28 17:32 | Inpatient (IN) ==
[2016-10-28] MEDS ORDERED: DUONEB (A & A) INH ONE (17:52)
--- NOTE | 2016-10-28 18:10 | PROVIDER DOCUMENTATION ---
HPI-Head Injury - General Chief Complaint: Fall Stated Complaint: fall from standing, hit head on wall- small lac Time Seen by Provider: 10/28/16 17:35 Source: patient, EMS Allergies/Adverse Reactions: Patient Allergies Allergy/AdvReac Type Severity Reaction Status Date / Time No Known Allergies Allergy Verified 10/28/16 18:00 Home Medications: Home Medication List Medication Instructions Recorded Confirmed Last Taken Type Aspirin 81 mg PO DAILY 09/18/16 10/28/16 10/27/16 09:00 History Ergocalciferol (Vitamin D2) 50,000 unit PO Q7D #4 capsule 10/02/16 10/28/16 09:00 Rx [Vitamin D] Folic Acid 1 mg PO BID #60 tablet 10/02/16 10/28/16 10/28/16 09:00 Rx Linaclotide [Linzess] 145 mcg PO DAILY@0700 #0 capsule 10/02/16 10/28/16 07:00 Rx Magnesium Oxide [Mag-Ox] 800 mg PO BID #60 tablet 10/02/16 10/28/16 10/28/16 09: 00 Rx Megestrol Acetate [Megace Liquid] 400 mg PO ACB #30 udc 10/02/16 10/28/16 07:00 Rx Nicotine Patch [Nicoderm Patch] 21 mg TD DAILY #0 patch.td24 10/02/16 10/28/16 10/28/16 17:00 Rx Pantoprazole [Protonix] 40 mg PO DAILY@0700 #30 tablet 10/02/16 10/28/16 07:00 Rx Potassium Chloride E.r. [Klor-Con] 20 meq PO BID #60 tablet 10/02/16 10/28/16 09:00 Rx Sennosides/Docusate Sodium 1 each PO BID #0 tablet 10/02/16 10/28/16 10/28/16 09 :00 Rx [Pericolace] Ciprofloxacin 0.3% Ophth Soln 2 drop RIGHT EYE Q6HR 10/28/16 10/28/16 10/24/16 18:00 History [Ciloxan Ophth Soln] Diltiazem [Cardizem] 30 mg PO Q6HR 03/10/28/16 10/28/16 12:00 History Ipratropium/Albuterol INH 1 puff INH RTQ6H 10/28/16 10/28/16 10/28/16 17:00 History [Combivent Respimat Inhaler] Methylprednisolone [Medrol Dosepak] 4 mg PO DIRECTED 10/28/16 10/28/16 12:00 History Ranitidine HCl [Zantac] 150 mg PO BID 10/28/16 10/28/16 10/28/16 09:00 History Tamsulosin [Flomax] 0.4 mg PO DAILY 10/28/16 10/28/16 10/20/16 History - History of Present Illness-Head Injury Nature of Presenting Problem: 81 yo resident of [facility]. Reports that he felt somewhat dizzy and then fell forward and hit his head on a wall. Was apparently not supposed to be out of bed on his own. No significant LOC. Denies other injuries. Head Injury Location: reports: frontal Other injuries associated with incident:: reports: none Severity: reports: mild Onset/Duration: reports: abrupt Timing: reports: resolved prior to arrival Method of Injury: reports: fell Loss of Consciousness: no loss of consciousness Injury Associated Symptoms: reports: dizziness Locality of Occurance: Other (long term) Review of Systems - Adult - REVIEW OF SYSTEMS - ADULT Constitutional: reports: see HPI Eyes: reports: no symptoms reported Ears, Nose, Mouth & Throat: reports: no symptoms reported Cardiovascular: reports: no symptoms reported Respiratory: reports: chronic cough, dyspnea on exertion, wheezing Gastrointestinal: reports: no symptoms reported Genitourinary: reports: other (has indwelling atkins) Musculoskeletal: reports: no symptoms reported Integumentary: reports: other (superficial laceraations midline forehead) Neurological: reports: dizziness/vertigo Psychiatric: reports: no symptoms reported Past History - Adult - PAST MEDICAL HISTORY-ADULT Review of Records: reports: Old Records Reviewed, Nursing Assessment Review, Medications Reviewed Major Childhood Illnesses: reports: denies history Cardiovascular: reports: HTN Respiratory: reports: COPD, pneumonia Gastrointestinal: reports: denies history Obstetrical/Gynecological: reports: denies history Genitourinary: reports: denies history Musculoskeletal: reports: denies history Neurological: reports: denies history Endocrine/Immune: reports: denies history Other Conditions: reports: denies history - PRIOR SURGERIES/PROCEDURES Surgical/Procedure History: reports: none - IMMUNIZATION STATUS Childhood Immunizations: See Nurse Assessment Flu Vaccine: See Nurse Assessment - FAMILY HISTORY Family History: reviewed, not pertinent Physical Exam- Neurological - Physical Exam-Neuro Initial Vital Signs Reviewed: Yes (tachycardia) General Appearance: cachetic Eye Exam: bilateral eye: PERRL, EOMI HENMT: TMs normal Head Injury: lacerations (superficial lac x2 midline forehead) Neck: non-tender Respiratory: chest non-tender, decreased breath sounds, wheezing Cardiovascular: no gallop, no JVD, no murmur, tachycardia Abdominal Exam: normal bowel sounds, non tender, soft, no organomegaly Lymphatic: no adenopathy Extremity: normal range of motion, non-tender, normal inspection, 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: normal hearing, normal speech, PERRL Motor/Sensory: no motor deficit, no sensory deficit Neurologic: grossly normal, no motor/sensory deficits Integumentary: warm/dry Psych/Mental Status: oriented x 3, disheveled Progress - PLAN OF CARE/RESULTS Progress/Plan/Lab Results: Laboratory Tests 10/28/16 10/28/16 10/28/16 19:01 19:01 19:41 WBC 32.41 H RBC 3.90 L Hgb 10.7 L Hct 33.4 L MCV 85.6 MCH 27.4 MCHC 32.0 L RDW Std Deviation 19.2 H Plt Count 445 H MPV 9.8 Immature Gran % (Auto) 0.9 H Neut % (Auto) 95.4 H Lymph % (Auto) 2.0 L [place] % (Auto) 1.6 L Eos % (Auto) 0.0 Baso % (Auto) 0.1 Immature Gran # (Auto) 0.28 H Neut # (Auto) 30.96 H Lymph # (Auto) 0.64 L [place] # (Auto) 0.51 Eos # (Auto) 0.00 Baso # (Auto) 0.02 Specimen Type ARTERIAL Sample Site R BRACHIAL pH 7.52 H pCO2 29 L pO2 50 L HCO3 25.7 Base Excess 1.1 Oxyhemoglobin 91.2 L ABG O2 Sat (Calculated) 11.1 L ABG O2 Saturation 95.2 ABG Carboxyhemoglobin 3.40 H ABG Methemoglobin 0.8 Chava Test YES A-a O2 Difference 142.0 Total Hemoglobin 8.6 L Lactate 1.40 Liter Flow 3.0 Blood Gas Modality CANNULA FiO2 % 32.0 Sodium 131 L Potassium 5.3 H Chloride 95 L Carbon Dioxide 20 L Anion Gap 16 BUN 25 H Creatinine 0.7 Estimated GFR/1.73 m2 > 60 BUN/Creatinine Ratio 36 Glucose 93 Calculated Osmolality 267 Calcium 9.5 Total Bilirubin 0.42 AST 20 ALT 25 Alkaline Phosphatase 82 Total Protein 7.4 Albumin 2.6 L Globulin 4.8 Albumin/Globulin Ratio 0.5 Orders Category Date Time Status CHEST-PORTABLE [RAD] Stat Exams 10/28/16 17:50 Taken HEAD/C-SPINE W/O CONTRAST [CT] Stat Exams 10/28/16 17:49 Taken XRAY HIP W/PELVIS BILAT 3-4VWS [RAD] Stat Exams 10/28/16 17:50 Taken ABG [RESP] Routine Lab 10/28/16 19:41 Completed ABG [RESP] Routine Lab 10/28/16 19:52 Ordered BLOOD CULTURE [BLDCUL] Stat Lab 10/28/16 19:15 Ordered CBC WITH DIFF [HEME] Stat Lab 10/28/16 19:01 Results COMPREHENSIVE METABOLIC PANEL [CHEM] Stat Lab 10/28/16 19:01 Completed LACTATE, PLASMA [CHEM] Stat Lab 10/28/16 19:52 Ordered URINALYSIS W/POSS RFLX CULT [URINALYSIS] Stat Lab 10/28/16 19:16 Uncollected 0.9% Sodium Chloride Inj [Ns] 1,000 ml Med 10/28/16 19:15 Active IV 999 mls/hr Albuterol 2.5MG/Ipratrop 0.5MG [Duoneb (A & A)] Med 10/28/16 17:52 Discontinued 3 ml INH NOW ONE Azithromycin 500 mg/Ns [Zithromax 500 mg/Ns] 250 ml Med 10/28/16 19:19 Active IV NOW CefTRIAXONE 1 GM/NS [Rocephin 1 gm/Ns] 50 ml Med 10/28/16 19:19 Discontinued IV NOW Aerosol Treatments Routine Oth 10/28/16 17:53 Active Aerosol Treatments Stat Oth 10/28/16 17:53 Active O2 Per Protocol Stat Oth 10/28/16 19:21 Active EKG [EKG] Stat Ther 10/28/16 17:46 Ordered Vital Signs Temp Pulse Resp BP Pulse Ox 10/28/16 19:53 122 H 18 95 10/28/16 17:59 98.5 F 10/28/16 17:44 128 H 23 126/63 86 L No Known Allergies Allergy (Verified 10/28/16 18:00) Aspirin 81 mg PO DAILY 09/18/16 Ergocalciferol (Vitamin D2) [Vitamin D] 50,000 unit PO Q7D #4 capsule 10/02/16 Folic Acid 1 mg PO BID #60 tablet 10/02/16 Linaclotide [Linzess] 145 mcg PO DAILY@0700 #0 capsule 10/02/16 Magnesium Oxide [Mag-Ox] 800 mg PO BID #60 tablet 10/02/16 Megestrol Acetate [Megace Liquid] 400 mg PO ACB #30 udc 10/02/16 Nicotine Patch [Nicoderm Patch] 21 mg TD DAILY #0 patch.td24 10/02/16 Pantoprazole [Protonix] 40 mg PO DAILY@0700 #30 tablet 10/02/16 Potassium Chloride E.r. [Klor-Con] 20 meq PO BID #60 tablet 10/02/16 Sennosides/Docusate Sodium [Pericolace] 1 each PO BID #0 tablet 10/02/16 Ciprofloxacin 0.3% Ophth Soln [Ciloxan Ophth Soln] 2 drop RIGHT EYE Q6HR Diltiazem [Cardizem] 30 mg PO Q6HR 10/28/16 Ipratropium/Albuterol INH [Combivent Respimat Inhaler] 1 puff INH RTQ6H Methylprednisolone [Medrol Dosepak] 4 mg PO DIRECTED 10/28/16 Ranitidine HCl [Zantac] 150 mg PO BID 10/28/16 Tamsulosin [Flomax] 0.4 mg PO DAILY 10/28/16 Laboratory 10/28/16 10/28/16 10/28/16 19:41 19:01 19:01 WBC 32.41 H RBC 3.90 L Hgb 10.7 L Hct 33.4 L MCV 85.6 MCH 27.4 MCHC 32.0 L RDW Std Deviation 19.2 H Plt Count 445 H MPV 9.8 Immature Gran % (Auto) 0.9 H Neut % (Auto) 95.4 H Lymph % (Auto) 2.0 L [place] % (Auto) 1.6 L Eos % (Auto) 0.0 Baso % (Auto) 0.1 Immature Gran # (Auto) 0.28 H Neut # (Auto) 30.96 H Lymph # (Auto) 0.64 L [place] # (Auto) 0.51 Eos # (Auto) 0.00 Baso # (Auto) 0.02 Specimen Type ARTERIAL Sample Site R BRACHIAL pH 7.52 H pCO2 29 L pO2 50 L HCO3 25.7 Base Excess 1.1 Oxyhemoglobin 91.2 L ABG O2 Sat (Calculated) 11.1 L ABG O2 Saturation 95.2 ABG Carboxyhemoglobin 3.40 H ABG Methemoglobin 0.8 Chava Test YES A-a O2 Difference 142.0 Total Hemoglobin 8.6 L Lactate 1.40 Liter Flow 3.0 Blood Gas Modality CANNULA FiO2 % 32.0 Sodium 131 L Potassium 5.3 H Chloride 95 L Carbon Dioxide 20 L Anion Gap 16 BUN 25 H Creatinine 0.7 Estimated GFR/1.73 m2 > 60 BUN/Creatinine Ratio 36 Glucose 93 Calculated Osmolality 267 Calcium 9.5 Total Bilirubin 0.42 AST 20 ALT 25 Alkaline Phosphatase 82 Total Protein 7.4 Albumin 2.6 L Globulin 4.8 Albumin/Globulin Ratio 0.5 - EKG 1 Time of EKG reading by physician:: 19:00 EKG Read and Signed by:: Ramona Romero EKG Interpretation (*Must complete 3 of following elements*): Abnormal Rate: 128 Rhythm: sinus tach [place]: normal QRS: normal NE Interval: normal ST Wave: normal - XRAY 1 XRAY Study: Chest (large R lower lobe, porbable RML pneumonia) Impression: Abnormal - CT/MRI 1 CT Study: Cervical Spine, Head CT Results: no acute intracranial process, no c spine fx - CONSULTS/PCP/HOSPITALIST Notification #1 *Consult/PCP/Hospitalist*: Dr Bush Time Discussed: 19:50 (severe pneumonia) Consult Disposition: Admit Departure - Departure Time of Disposition Order: 20:00 DIAGNOSIS: Head injury Pneumonia Qualifiers: Laterality: right Lung location: lower lobe of lung Disposition: ADMITTED INPATIENT 09 Certified Medical Emergency: Emergent Condition: Critical Referrals: Maninder Verdin MD [Primary Care Provider] -
--- NOTE | 2016-10-28 19:11 | ED EKG INTERP ---
EKG Interpretation - EKG Time of EKG reading by physician:: 18:42 EKG Read and Signed by:: Martin Guerrero EKG Interpretation (*Must complete 3 of following elements*): Normal Rate: 125 Rhythm: Sinus tachycardia <Brett Patrick - Last Filed: 10/28/16 19:11> Attestation - Scribe Verification/Attestation Scribe:: Brett Patrick Acting as Scribe for:: Martin Guerrero Scribe documention review:: This chart was documented by a scribe and accurately reflects the service the provider performed and the decisions made by the provider. <Brett Patrick - Last Filed: 10/28/16 19:11> Physician Attestation - Physician Attestation I, the provider, attest to the following statement:: Ramona Romero Physician documentation Attestation:: This documentation recorded by the scribe accurately reflects the service I personally performed and the decisions made by me. <Ramona Romero - Last Filed: 10/28/16 21:39>
[2016-10-28 19:13] LABS: BASO% 0.1 % (0.0-0.8); HEMATOCRIT 33.4 % (42.0-52.0); HEMOGLOBIN 10.7 g/dL (14.0-18.0); IMM GRAN# 0.28 X1000 (0.0-0.04); IMM GRAN% 0.9 % (0.0-0.5); LYMPH# 0.64 X1000 (1.2-3.4); MANUAL DIFF NEEDED? YES; MCH 27.4 PG (27-31); MCV 85.6 FL (81-99); MONO# 0.51 X1000 (0.11-0.59); MONO% 1.6 % (1.7-9.3); MPV 9.8 FL (7.4-10.4); NEUT% 95.4 % (42.2-75.2); PLT 445 X1000 (130-400)
[2016-10-28] MEDS ORDERED: NS 1,000 ML IV ONE (19:15)
[2016-10-28] MEDS ORDERED: ROCEPHIN 1 GM/NS 50 ML IV ONE (19:19)
[2016-10-28] MEDS ORDERED: ZITHROMAX 500 MG/NS 250 ML IV ONE (19:19)
[2016-10-28 19:45] LABS: AGAP 16; ALBUMIN 2.6 g/dL (3.5-5.0); ALKALINE PHOSPHATASE 82 U/L (32-122); BUN 25 mg/dL (8-22); CALCIUM 9.5 mg/dL (8.8-10.2); CHLORIDE 95 mmol/L (98-107); COSMO 267; GOT 20 U/L (10-34); GPT 25 U/L (10-44); POTASSIUM 5.3 mmol/L (3.5-5.1); SODIUM 131 mmol/L (136-145); TCO2 20 mmol/L (25-35); TOTAL BILIRUBIN 0.42 mg/dL (0.20-1.00); TOTAL PROTEIN 7.4 g/dL (6.3-8.3)
[2016-10-28 19:51] LABS: ALLEN TEST YES; BE 1.1 mmoll (-3.0-3.0); BLOOD TYPE ARTERIAL; DRAW SITE R BRACHIAL; METHB 0.8 % (0.0-1.5); MODALITY CANNULA; O2(CT) 11.1 mL/dL (15.0-23.0); PCO2(98.6) 29 mmHg (35-45); PO2(98.6) 50 mmHg (60-100); SAMPLE BLOOD; SAO2 95.2 % (95.0-100.0); THB 8.6 g/dL (11.5-17.4); pH(98.6) 7.52 (7.35-7.45)
[2016-10-28 20:14] LABS: BANDS 10 % (0-1)
[2016-10-28 20:20] LABS: POLYCHROM 1+
--- NOTE | 2016-10-28 20:45 | Diag Imaging Result Document ---
PROCEDURE NAME: HEAD/C-SPINE W/O CONTRAST - 10/28/2016 CT HEAD AND C-SPINE WITHOUT CONTRAST: COMPARISON: 09/19/2016. FINDINGS: HEAD: There is extensive patchy low attenuation in the periventricular and subcortical white matter compatible with microangiopathy, stable. There is no definite acute infarct given the limited sensitivity of CT versus MRI. There is no discrete intracranial mass, mass effect, or intracranial hemorrhage. There is sphenoid sinus mucosal disease. Surrounding soft tissues and bony structures are essentially unremarkable, otherwise. C-SPINE: There is extensive multilevel degenerative disk disease throughout the cervical spine at and below the C3-4 level with loss of disk space height and marginal osteophyte formation. This is causing some degree of central canal and neural foraminal narrowing at multiple levels. However, it is chronic. There is no evidence of fracture, subluxation, or intrinsic osseous lesion, otherwise. Surrounding soft tissues are essentially unremarkable. IMPRESSION: 1. Stable extensive chronic changes but no evidence of acute intracranial pathology. 2. Extensive multilevel degenerative change throughout the cervical spine but no evidence of fracture or other definite acute C-spine injury.
--- NOTE | 2016-10-28 21:05 | Diag Imaging Result Document ---
PROCEDURE NAME: CHEST-PORTABLE - 10/28/2016 SINGLE FRONTAL RADIOGRAPH OF THE CHEST: COMPARISON: 09/18/2016. FINDINGS: There are COPD changes and there is dense consolidation in the right mid and lower lung zone consistent with pneumonia. No definite pleural fluid collection is identified. Cardiac silhouette is unremarkable. IMPRESSION: Dense infiltrate in the right mid and lower lung zone consistent with pneumonia.
--- NOTE | 2016-10-28 21:05 | Diag Imaging Result Document ---
PROCEDURE NAME: XRAY HIP W/PELVIS BILAT 3-4VWS - 10/28/2016 PLAIN RADIOGRAPH OF THE PELVIS AND BILATERAL HIPS, 3 VIEWS: COMPARISON: None available. FINDINGS: There is no discrete fracture, dislocation, or intrinsic osseous lesion. The hip joint spaces appear to be preserved. There is atherosclerotic calcification involving both thighs. IMPRESSION: No evidence of acute osseous abnormality.
[2016-10-28 22:45] LABS: URINE SOURCE CATH
[2016-10-28 22:47] LABS: BILIRUBIN URINE NEGATIVE (NEGATIVE); BLOOD URINE NEGATIVE (NEGATIVE); COLOR YELLOW; GLUCOSE URINE NEGATIVE (NEGATIVE); LEUKOCYTES URINE LARGE (NEGATIVE); NITRITE URINE POSITIVE (NEGATIVE); PH URINE 8.5; PROTEIN URINE 200 mg/dL (NEGATIVE); TURBIDITY URINE HAZY (CLEAR); UROBILINOGEN URINE NORMAL (NORMAL)
[2016-10-28 22:49] LABS: URINE MICRO REVIEW NEEDED? YES
[2016-10-28 22:53] LABS: UR EPITHELIAL CELLS <10 /HPF (<10); URINE BACTERIA 4+ /HPF; URINE CULTURE NEEDED? YES; URINE RBC <10 /HPF (<10); URINE WBC TNTC /HPF (<10)
[2016-10-28 23:21] LABS: URINE CRYSTALS TRIPLE PHOS PRESENT
--- NOTE | 2016-10-29 01:11 | HISTORY AND PHYSICAL ---
CHIEF COMPLAINT: Fall. HISTORY OF PRESENTING ILLNESS: An 81-year-old male with a history of COPD, hypertension who apparently was at [facility] where he fell. He was brought to the emergency department. He had imaging done, including CT of the head which was unremarkable. He had x-rays of the chest which did show that he did have a right lower lobe infiltrate and due to his presenting symptoms he will need hospitalization for further management. At the time of my examination, patient denied any headache, fever, chills, chest pain, hemoptysis , weight changes, with complaint of shortness of breath and having cough. PAST MEDICAL HISTORY: Includes COPD, hypertension. PAST SURGICAL HISTORY: None. ALLERGIES: No known drug allergies. CURRENT MEDICATIONS: As listed in MAR. SOCIAL HISTORY: A 70 pack years history of smoking. No history of alcohol or illicit drug use. FAMILY HISTORY: No history of coronary disease. REVIEW OF SYSTEMS: Twelve point systems is as in HPI. Other systems negative. PHYSICAL EXAMINATION: GENERAL: Cooperative, friendly male. He is resting comfortably now. VITAL SIGNS: Temperature 98.5 degrees, pulse 122, respiration 18, blood pressure 119/69. He is satting 92%. HEENT: Extraocular movements intact. PERRLA. NECK: No masses. CHEST: Rhonchi. CARDIOVASCULAR: Regular rate and rhythm. ABDOMEN: Soft. Positive bowel sounds. EXTREMITIES: No edema. NEURO: He is awake, alert, oriented x3. GENITOURINARY: No bladder distention. SKIN: Warm. LABORATORIES AND STUDIES: WBC is 32.41, hemoglobin 10.7, hematocrit 33.4, platelets 445,000. Sodium 131, potassium 5.3, chloride 95, CO2 is 20, BUN is 25, creatinine 0.7, glucose is 93. ASSESSMENT: An 81-year-old elderly male with a history of chronic obstructive pulmonary disease and hypertension presents to emergency department after he had a fall at the rehab center he was at. He had imaging done at the ER which did show that he had a right lower lobe infiltrate suggestive of pneumonia. Subsequently, he will need hospitalization for further management. 1. Status post fall. 2. Head injury with contusion/laceration on the forehead. 3. Right lower lobe pneumonia. 4. Chronic obstructive pulmonary disease. 5. Hypertension. PLAN: 1. We will admit patient to medical floor with telemetry. 2. Continue with neuro checks. 3. We will check blood cultures. Start patient on IV antibiotics. 4. Continue with DuoNebs p.r.n. 5. We will monitor blood pressure closely. Resume antihypertensive agents. 6. Put patient on DVT prophylaxis with SCDs. 7. We will continue to follow and reassess. JONAH
[2016-10-29] MEDS: LEVAQUIN 750 MG/D5W 150 ML IV SCH (02:15)
[2016-10-29] MEDS: NS 1,000 ML IV SCH ×2 (02:15→18:30)
[2016-10-29] MEDS: CARDIZEM PO SCH ×4 (02:15→20:18)
[2016-10-29] MEDS: CILOXAN OPHTH SOLN RIGHT EYE SCH ×4 (02:18→20:18)
[2016-10-29] MEDS: PROTONIX PO SCH ×2 (05:52→06:13)
--- NOTE | 2016-10-29 06:19 | EKG Report ---
Test Performed on : 10/28/2016 6:42:01 PM Test Reason : fall Blood Pressure : / mmHG Vent. Rate : 125 BPM Atrial Rate : 125 BPM P-R Int : 158 ms QRS Dur : 062 ms QT Int : 306 ms P-R-T Axes : 073 026 075 degrees QTc Int : 441 ms Sinus tachycardia. Otherwise normal ECG When compared with ECG of 18-SEP-2016 13:19, No significant change was found Unconfirmed Result
[2016-10-29 06:29] LABS: EOS# 0.06 X1000 (0.0-0.7); EOS% 0.2 % (0.0-10.0); HEMATOCRIT 25.8 % (42.0-52.0); HEMOGLOBIN 8.2 g/dL (14.0-18.0); IMM GRAN# 0.13 X1000 (0.0-0.04); IMM GRAN% 0.5 % (0.0-0.5); LYMPH# 0.74 X1000 (1.2-3.4); LYMPH% 2.9 % (20.5-51.1); MANUAL DIFF NEEDED? YES; MCH 27.2 PG (27-31); MCHC 31.8 g/dL (33-37); MCV 85.7 FL (81-99); MONO# 0.48 X1000 (0.11-0.59); MONO% 1.9 % (1.7-9.3); MPV 9.9 FL (7.4-10.4); NEUT% 94.5 % (42.2-75.2); PLT 410 X1000 (130-400); RBC 3.01 XMIL (4.7-6.1)
[2016-10-29 06:44] LABS: AGAP 12; BUN 20 mg/dL (8-22); CALCIUM 8.4 mg/dL (8.8-10.2); CHLORIDE 100 mmol/L (98-107); COSMO 265; SODIUM 132 mmol/L (136-145); TCO2 20 mmol/L (25-35)
[2016-10-29 06:47] LABS: BANDS 2 % (0-1); LYMPHS 2 % (21-51); MONO 2 % (1-9)
[2016-10-29] MEDS ORDERED: VITAMIN D PO SCH (09:00)
[2016-10-29] MEDS: NICODERM PATCH TD SCH (11:21)
[2016-10-29] MEDS: ASPIRIN PO SCH (11:22)
[2016-10-29] MEDS: FOLIC ACID PO SCH ×2 (11:22→20:18)
[2016-10-29] MEDS: FLOMAX PO SCH (11:22)
--- NOTE | 2016-10-29 13:43 | PROGRESS NOTE ---
DATE: 10/29/2016 SUBJECTIVE: The patient is resting quietly in bed. No complaints voiced. OBJECTIVE: Vital Signs: With a temperature of 98.4 degrees, pulse 114, respirations 20, blood pressure 131/67, saturating 93% to 96% on 3 L via nasal cannula. HEENT: Patient is noted to have a laceration to his forehead, status post a fall at rehab yesterday. Otherwise , the pupils are equal, round, and reactive to light. Extraocular movements are intact. Oropharynx and nares are clear. Neck: Supple. Lungs: With wheezing throughout entire posterior lung bernstein. Equal lung expansion and chest wall movement noted. Heart: With regular rate and rhythm. No murmurs, rubs, or gallops. Abdomen: Soft, nontender, nondistended. Bowel sounds are present x4 quadrants. Extremities: There is no clubbing, cyanosis, or edema. Neurological: The cranial nerves 2-12 are grossly intact. LABORATORY DATA: Showed a white blood cell count of 25.25, hemoglobin of 8.2, hematocrit 25.8, and platelets of 410,000. Sodium of 132, potassium 4, chloride 100, CO2 20, BUN of 20, creatinine 0.6, glucose 66. Urinalysis did show some positive nitrites and large leukocytes, and 4+ bacteria. Urine culture pending. Blood cultures pending. ASSESSMENT AND PLAN: 1. Status post fall with contusion and laceration of his forehead. 2. Right lower lobe pneumonia. 3. Chronic obstructive pulmonary disease. 4. Urinary tract infection. 5. Hyponatremia. 6. Anemia. PLAN: We will continue his IV antibiotics. Place on DuoNeb q.4 hours. Again, his urine culture and blood cultures are pending. We will continue his normal saline at 80 mL an hour. Suspect that the drop in his hemoglobin and hematocrit is probably dilutional, but since he had a fall we will trend these q.6h x3 sets. His CT again was stable and no acute intracranial pathology was noted. We will recheck a CBC and a BMP in the a.m. Patient seen and examined. Agree with RAGHAV note. It reflects my assessment and plan. Dictated by RAGHAV Thompson for aMnfred Carvajal MD [facility]
[2016-10-29 14:55] LABS: HEMOGLOBIN 9.5 g/dL (14.0-18.0)
[2016-10-29] MEDS: DUONEB (A & A) INH SCH ×3 (15:19→23:15)
[2016-10-29] MEDS: ROCEPHIN 1 GM/NS 50 ML IV SCH (20:19)
[2016-10-29 21:03] LABS: HEMATOCRIT 26.6 % (42.0-52.0); HEMOGLOBIN 8.5 g/dL (14.0-18.0)
[2016-10-30] MEDS: LEVAQUIN 750 MG/D5W 150 ML IV SCH (01:05)
[2016-10-30 01:43] LABS: HEMATOCRIT 27.3 % (42.0-52.0); HEMOGLOBIN 8.8 g/dL (14.0-18.0)
[2016-10-30] MEDS: CARDIZEM PO SCH ×4 (02:32→20:04)
[2016-10-30] MEDS: CILOXAN OPHTH SOLN RIGHT EYE SCH ×4 (02:32→20:03)
[2016-10-30] MEDS: NS 1,000 ML IV SCH ×2 (02:34→16:44)
[2016-10-30] MEDS: DUONEB (A & A) INH SCH ×6 (03:31→23:20)
[2016-10-30] MEDS: PROTONIX PO SCH ×2 (05:48→06:03)
[2016-10-30 06:23] LABS: EOS# 0.04 X1000 (0.0-0.7); EOS% 0.2 % (0.0-10.0); HEMOGLOBIN 9.7 g/dL (14.0-18.0); IMM GRAN# 0.07 X1000 (0.0-0.04); IMM GRAN% 0.4 % (0.0-0.5); LYMPH# 0.73 X1000 (1.2-3.4); LYMPH% 4.1 % (20.5-51.1); MANUAL DIFF NEEDED? YES; MCH 27.1 PG (27-31); MCHC 32.3 g/dL (33-37); MCV 83.8 FL (81-99); MONO# 0.86 X1000 (0.11-0.59); MONO% 4.8 % (1.7-9.3); NEUT% 90.5 % (42.2-75.2); PLT 432 X1000 (130-400); RBC 3.58 XMIL (4.7-6.1)
[2016-10-30 06:27] LABS: AGAP 16; BUN 16 mg/dL (8-22); CALCIUM 8.2 mg/dL (8.8-10.2); CHLORIDE 97 mmol/L (98-107); COSMO 268; POTASSIUM 3.8 mmol/L (3.5-5.1); SODIUM 134 mmol/L (136-145); TCO2 21 mmol/L (25-35)
[2016-10-30 06:33] LABS: BANDS 1 % (0-1); LYMPHS 9 % (21-51)
[2016-10-30 06:34] LABS: HYPOCHROM OCCASIONAL
[2016-10-30] MEDS: FOLIC ACID PO SCH ×2 (08:20→20:04)
[2016-10-30] MEDS: FLOMAX PO SCH (08:20)
[2016-10-30] MEDS: ASPIRIN PO SCH (08:21)
[2016-10-30] MEDS: NICODERM PATCH TD SCH (08:21)
--- NOTE | 2016-10-30 19:32 | PALLIATIVE CARE CONSULTATION ---
DATE: 10/30/2016 REQUESTING PHYSICIAN: RAGHAV aRmos. REASON FOR CONSULTATION: Goals of care. HISTORY OF PRESENT ILLNESS: This is an 81-year-old, male with a past medical history of COPD and hypertension. He was most recently admitted on 10/28/2016 after experiencing a fall while at [facility]. He was brought to the emergency department where a CT of the head was completed and unremarkable. However, x-rays of the chest did show a right lower lobe pneumonia, therefore, he was admitted for further management. At this time he is lying in the hospital bed. His daughter is at the bedside. He does not have any acute complaints at this time. His daughter states that he has been admitted numerous times in the last couple of months and that he has become progressively weaker where he is now unable to walk. She states that in August of this year he was living alone, driving and able to perform all of his activities of daily living. The Palliative Care team has been consulted to assist with goals of care. REVIEW OF SYSTEMS: Twelve point review of systems has been conducted and otherwise negative except those mentioned in the HPI. PAST MEDICAL HISTORY: See HPI. PAST SURGICAL HISTORY: None. SOCIAL HISTORY: Current tobacco user. Alcohol and drug use have been denied. He is not . He has one daughter who is attentive to his care. FAMILY HISTORY: None pertinent. PHYSICAL EXAMINATION: General: This is a very pleasant, 81-year-old, male who does not appear to be in any acute distress. HEENT: Patient is noted to have a laceration to his forehead. Pupils are equal, round, and reactive to light. Neck: Trachea is midline. Cardiovascular: Respirations are diminished with scattered wheeze. Respirations are nonlabored. Abdomen: Soft. Bowel sounds are active. Extremities: Pulses are palpable. No edema noted. Neurologic: Alert and oriented x3. IMPRESSION: This is an 81-year-old, male with a past medical history as listed above in the HPI. I met with the patient and his daughter to discuss his goals of care. The daughter states that the plan is for him to go home where she will move in with him and he will have home health. I do think that Mr. Flannery is appropriate for outpatient palliative care services. Those services were explained to the patient and his daughter, and they are agreeable to those services. We discussed Mr. Flannery's lung disease and his continued tobacco use. Mr. Flannery states that he has no intention of quitting smoking. The daughter reports that he smokes 2-3 packs of cigarettes per day. It appears at this time that Mr. Flannery's palliative performance scale is 40%. He is a full code. We did discuss advanced directives. He is unsure of his wishes. Blank copies of advanced directive forms were given to both the patient and his daughter. The patient's daughter states that she has legal and medical Power of Accounts Payable Or Receivable Clerk. As previously mentioned, Mr. Flannery does not have any acute complaints at this time. The Palliative Care team will continue to follow as needed. Thank you for this consultation. Dictated by RAGHAV Mcwilliams for Eleazar Jaimes MD
[2016-10-30] MEDS: ROCEPHIN 1 GM/NS 50 ML IV SCH (20:04)
--- NOTE | 2016-10-30 22:31 | PROGRESS NOTE ---
DATE: 10/30/2016 SUBJECTIVE: Patient reports feeling fine. Denies any shortness of breath at rest. No fever or chills. No chest pain. OBJECTIVE: Vital Signs: Temperature 98.4 degrees, heart rate 111, respiratory rate 20, blood pressure 134/66, O2 saturation 100% on 2 L nasal cannula. General Examination: This is a chronically ill-looking, frail and disheveled, 81-year-old male, lying in bed, in no acute distress. HEENT: Head is normocephalic. He is noted to have a laceration on his forehead status post a fall in a rehab facility. Pupils equal, round, reactive to light and accommodation. Neck: Supple. No JVD noted. No carotid bruits. No lymphadenopathy. No thyromegaly. Cardiovascular: S1, S2 heard. No murmurs, gallops, or rubs. Regular rate and rhythm. Respiratory: Mild wheezing all over both pulmonary bernstein. The patient is not using any accessory muscles or having work of breathing. Abdomen: Soft. Nontender to palpation. Bowel sounds present. No organomegaly. Extremities: No clubbing, cyanosis, or edema. Peripheral pulses present in both legs. Neurological: Patient is alert and oriented x3. Moves 4 extremities. Cranial nerves 2 through 12 grossly normal. LABORATORY DATA: White cell count 17.74, hemoglobin 9.7, hematocrit 30.0, platelets 432,000. Sodium 134, potassium 2.8, chloride 97, bicarb 21, BUN 16, creatinine 0.6. Urinalysis shows nitrate positive with too numerous to count white cell count. The urine culture shows gram- positive cocci. ASSESSMENT: 1. Status post fall with contusion and laceration of his forehead. 2. Right lower lobe pneumonia. 3. Chronic obstructive pulmonary disease. 4. Urinary tract infection. 5. Hyponatremia. 6. Anemia. PLAN: We will continue at this time with the current antibiotic therapy. In this case, patient is receiving levofloxacin and ceftriaxone. For chronic obstructive pulmonary disease, although he is not in exacerbation, we will continue with the breathing treatments. For urinary tract infection, he is covered with antibiotics. Urine culture actually shows gram-positive cocci. We will follow the results of the final urine culture. Also for hyponatremia, that is getting better. It is almost back to normal. For anemia, we are going to check CBC daily. this patient is doing good and white cell count is getting better day by day. My best guess is that this patient will stay 2 more days in the hospital. We have consulted physical therapy because he came from a rehab facility and he may need to go back there. We will figure it out at the day of discharge.
[2016-10-31] MEDS: LEVAQUIN 750 MG/D5W 150 ML IV SCH (00:05)
[2016-10-31] MEDS: CILOXAN OPHTH SOLN RIGHT EYE SCH ×4 (01:51→20:12)
[2016-10-31] MEDS: CARDIZEM PO SCH ×4 (01:51→20:11)
[2016-10-31] MEDS: DUONEB (A & A) INH SCH ×6 (03:08→23:30)
[2016-10-31] MEDS: PROTONIX PO SCH ×2 (05:48→06:22)
[2016-10-31] MEDS: NS 1,000 ML IV SCH ×2 (06:18→06:42)
[2016-10-31] MEDS: FOLIC ACID PO SCH ×2 (08:37→20:11)
[2016-10-31] MEDS: FLOMAX PO SCH (08:37)
[2016-10-31] MEDS: NICODERM PATCH TD SCH (08:37)
[2016-10-31] MEDS: ASPIRIN PO SCH (08:37)
[2016-10-31] MEDS ORDERED: ZITHROMAX 500 MG/NS 250 ML IV SCH (15:15)
--- NOTE | 2016-10-31 16:12 | PROGRESS NOTE ---
DATE: 10/31/2016 SUBJECTIVE: This patient is feeling better. He was lying on the bed. He was not complaining of shortness of breath. He states that he is on home oxygen, and also he states that he is still smoking but he is not planning to stop. He states that he has been smoking since age 10. This patient was [facility] facility, but now he does not want to go back there. He rather preferred to go home with his daughter, on home oxygen, medical bed, bedside commode and a front wheel walker. Probably tomorrow I will be able to discharge this patient. OBJECTIVE: Vital Signs: Temperature 98.7 degrees, pulse 107, respiratory rate 18, blood pressure 140/59, oxygen saturation 95% on 2 L of nasal cannula. HEENT: Head normocephalic. He has a laceration on his forehead. Apparently he fell at the rehab facility. PERRLA. Neck: Supple. No JVD. No masses. Central trachea. Cardiovascular: RRR. No murmurs. Tachycardic. Chest: No wheezing. No rales. Mild scattered crepitus bilaterally. Abdomen: Soft, nontender, nondistended. No hepatosplenomegaly. Extremities: No clubbing, no cyanosis. No edema. Decreased muscle mass. Neurological: The patient is alert and oriented x3. He moves all 4 extremities. LABORATORY: WBC 17.7, hemoglobin 8.8, hematocrit 37.3, platelets 432,000. Sodium 134, potassium 3.8, chloride 97, bicarbonate 21, BUN 16, creatinine 0.6, glucose 67, calcium 8.2. ASSESSMENT AND PLAN: 1. Status post fall with contusion and laceration of his forehead, stable. Will monitor. 2. Right lower lobe pneumonia. He is breathing better. We will continue with the same management. He is on antibiotics. 3. History of COPD. Not in exacerbation but we will continue treatment. 4. Urinary tract infection. We have a positive culture result that showed enterococcal faecalis group D, that is sensitive to ceftriaxone/penicillin. 5. Hyponatremia stable. The sodium today is 134. 6. Anemia. Normocytic. I will do the anemia workup. 7. Physical deconditioning. This patient is getting physical therapy during this hospitalization, and we are planning to discharge this patient home with home health and physical therapy as well.
[2016-10-31] MEDS: ROCEPHIN 1 GM/NS 50 ML IV SCH (20:11)
[2016-11-01] MEDS: CARDIZEM PO SCH ×2 (02:10→09:32)
[2016-11-01] MEDS: CILOXAN OPHTH SOLN RIGHT EYE SCH ×2 (02:10→09:32)
[2016-11-01] MEDS: DUONEB (A & A) INH SCH ×3 (03:35→11:05)
[2016-11-01 04:25] VITALS: BP 145/62
[2016-11-01] MEDS: PROTONIX PO SCH (05:23)
[2016-11-01 06:32] LABS: MANUAL DIFF NEEDED? NO
[2016-11-01 06:41] LABS: BASO% 0.1 % (0.0-0.8); EOS# 0.14 X1000 (0.0-0.7); EOS% 1.1 % (0.0-10.0); HEMATOCRIT 27.5 % (42.0-52.0); HEMOGLOBIN 8.9 g/dL (14.0-18.0); IMM GRAN# 0.08 X1000 (0.0-0.04); IMM GRAN% 0.7 % (0.0-0.5); LYMPH# 0.81 X1000 (1.2-3.4); LYMPH% 6.6 % (20.5-51.1); MCHC 32.4 g/dL (33-37); MCV 83.3 FL (81-99); MONO# 1.18 X1000 (0.11-0.59); MONO% 9.6 % (1.7-9.3); MPV 9.7 FL (7.4-10.4); NEUT% 81.9 % (42.2-75.2); PLT 479 X1000 (130-400)
[2016-11-01 07:03] LABS: AGAP 13; BUN 8 mg/dL (8-22); CALCIUM 8.2 mg/dL (8.8-10.2); CHLORIDE 98 mmol/L (98-107); COSMO 263; IRON SATURATION 12 %; POTASSIUM 3.6 mmol/L (3.5-5.1); SODIUM 133 mmol/L (136-145); TCO2 22 mmol/L (25-35); TIBC 91 ug/dL; TOTAL IRON 11 ug/dL (53-167); UNBOUND IRON 80 ug/dL (112-346)
[2016-11-01 07:21] LABS: FERRITIN 712 ng/mL (30-400)
[2016-11-01] MEDS ORDERED: CYANOCOBALAMIN IM SCH (09:00)
[2016-11-01] MEDS: NS 1,000 ML IV SCH (09:31)
[2016-11-01] MEDS: NICODERM PATCH TD SCH (09:32)
[2016-11-01] MEDS: ASPIRIN PO SCH (09:32)
[2016-11-01] MEDS: FOLIC ACID PO SCH (09:32)
[2016-11-01] MEDS: FLOMAX PO SCH (09:32)
[2016-11-01] MEDS ORDERED: KEFLEX PO SCH (21:00)
[2016-11-02] MEDS ORDERED: ZITHROMAX PO SCH (09:00)
--- NOTE | 2016-11-02 12:53 | DISCHARGE SUMMARY ---
ADMISSION DATE: 10/28/2016 DISCHARGE DATE: 11/01/2016 DATE OF ADMISSION: 10/28/2016. DATE OF DISCHARGE: 11/01/2016. CONSULTATIONS: Caroline Garcia with Palliative Care. PERTINENT PROCEDURES: Head and cervical spine CT: Showed: 1. Stable extensive, chronic changes but no evidence of acute intracranial pathology. 2. Extensive multilevel degenerative changes throughout the cervical spine with no evidence of fracture or definite acute C-spine injury. DISCHARGE DIAGNOSIS: 1. Status post fall with contusion and laceration of the forehead, stable. 2. Right lower lobe pneumonia. Continue with p.o. antibiotics. 3. Chronic obstructive pulmonary disease history without exacerbation. Continue home medications. 4. Urinary tract infection. Again, continue with p.o. antibiotics. 5. Hyponatremia, stable. 6. Anemia, normocytic. 7. Physical deconditioning. The patient worked with physical therapy. He is going home with home health as well as his daughter with DME. HOSPITAL COURSE: Briefly Mr. Flannery is an 81-year-old male with a history of chronic obstructive pulmonary disorder and hypertension, who was at [facility], where he fell. He was brought to the emergency room. He had a CT of the head, which was unremarkable. X-rays of the chest did show a right lower lobe infiltrate. The patient was admitted status post this fall with a contusion and laceration on the forehead and right lower lobe pneumonia. He was started on IV fluids as well as IV antibiotics, as well as close neurological checks and bronchodilators. The patient's urine culture did grow out Enterococcus facialis. Palliative Care was consulted for goals of care. Patient has had many recent admissions and given his extensive chronic obstructive pulmonary disorder history and a continuation of tobacco use, we called in Palliative Care to assess his needs. They did feel that he is appropriate for outpatient palliative care services. They also spoke with his daughter. They were agreeable to those services. They also discussed Mr. Flannery's lung disease, and again, his continued tobacco abuse. He states he has no intention of quitting smoking. The daughter reports that he smokes 2 3 packs of cigarettes per day. The patient did remain a full code. He was unsure of his wishes. He was supplied with blank copies of advanced directive forms. The daughter is legal and medical power of bakery associate. Her wish is to take him home with home health and DME. The patient continued on IV antibiotics. We also discussed rehabilitation again. However, the patient came from the rehabilitation facility and he was not wanting to go back there. Patient already has home health with [facility]. He already has home O2, as well as a medical bed, bedside commode, and a front wheel walker, and his daughter stated that she was going to moving in with him to help care for him. The patient is appropriate for discharge today. VITAL SIGNS: Temperature is 98.8 degrees, heart rate 111, respirations 16, blood pressure 145/62, O2 is 97% on 2 L. DISCHARGE DIET: Healthy heart. DISCHARGE MEDICATIONS: 1. Aspirin 81 mg p.o. daily. 2. Ciprofloxacin ophthalmic 2 drops right eye every 6 hours. 3. Combivent rescue inhaler 1 puff inhaled RT every 6 hours. 4. Flomax 0.4 mg p.o. daily. 5. Zantac 150 mg p.o. b.i.d. 6. Folic acid 1 mg p.o. b.i.d. 7. Linzess 145 mcg p.o. daily. 8. Magnesium oxide 800 mg p.o. b.i.d. 9. Megace liquid 40 mg p.o. before meals. 10. NicoDerm patch 21 mg daily. 11. Tamar-Colace 1 each p.o. b.i.d. 12. Protonix 40 mg p.o. daily. 13. Vitamin D 85956 units p.o. every 7 days. 14. Cardizem 30 mg p.o. every 6 hours. 15. Vitamin B12 1000 mcg IM daily. 16. Keflex 500 mg p.o. every 12 hours. 17. Zithromax 250 mg p.o. daily. FOLLOWUP CARE: Patient is being discharged home with his daughter. He has [facility] as well as O2, hospital bed, bedside commode, and a front wheel walker. The patient will need to follow up with his primary care physician, Renny Verdin, as well as outpatient palliative care services. CARE TIME: 30 minutes. This is RAGHAV Espinoza, doing a discharge summary for Dr. Humphrey. Dictated by RAGHAV Espinoza for Jorge Gregory MD
== END 2016-11-01 12:25 | disposition home health service (06) ==
LOC: EDUNIT# → EDBD → ED 17:32 → SUPCPDRO 17:32 → 3N 22:30 → 4N 23:49
PROVIDERS: ATTEND Internal Medicine

== ENCOUNTER 2018-10-11 00:31 | Observation (INO) ==
[2018-10-11] MEDS ORDERED: NS 1,000 ML IV ONE ×2 (00:51→03:34)
[2018-10-11] MEDS ORDERED: ZOFRAN IV ONE (00:51)
[2018-10-11 02:07] LABS: BASO# 0.05 X1000 (0.0-0.2); BASO% 0.5 % (0.0-0.8); EOS# 0.37 X1000 (0.0-0.7); EOS% 3.6 % (0.0-10.0); HEMOGLOBIN 14.2 g/dL (14.0-18.0); IMM GRAN# 0.01 X1000 (0.0-0.04); IMM GRAN% 0.1 % (0.0-0.5); LYMPH# 0.93 X1000 (1.2-3.4); LYMPH% 9.1 % (20.5-51.1); MCH 28.3 PG (27-31); MCV 85.8 FL (81-99); MONO# 0.87 X1000 (0.11-0.59); MONO% 8.5 % (1.7-9.3); MPV 10.8 FL (7.4-10.4); NEUT# 8.03 X1000 (1.4-6.5); NEUT% 78.2 % (42.2-75.2); PLT 270 X1000 (130-400); RBC 5.01 XMIL (4.7-6.1); RDW 15.4 % (11.5-14.5); WBC 10.26 X1000 (4.8-10.8)
[2018-10-11 02:11] LABS: AGAP 14; ALBUMIN 4.1 g/dL (3.5-5.0); ALKALINE PHOSPHATASE 86 U/L (32-122); BUN 19 mg/dL (8-22); CALCIUM 9.1 mg/dL (8.8-10.2); CHLORIDE 99 mmol/L (98-107); COSMO 279; CREATININE 0.9 mg/dL (0.7-1.2); ESTIMATED GFR > 60; GLUCOSE 118 mg/dL (70-104); GOT 22 U/L (10-34); GPT 10 U/L (10-44); POTASSIUM 4.2 mmol/L (3.5-5.1); SODIUM 138 mmol/L (136-145); TCO2 25 mmol/L (25-35); TOTAL PROTEIN 7.2 g/dL (6.3-8.3)
[2018-10-11] MEDS ORDERED: TYLENOL PO PRN (03:31)
[2018-10-11] MEDS ORDERED: ZOFRAN ODT PO PRN (03:31)
--- NOTE | 2018-10-11 07:54 | Diag Imaging Result Doc PS360 ---
CT HEAD W/O CONTRAST - 10/11/2018 INDICATION: syncope COMPARISON: 10/28/2016 FINDINGS: Stable mild diffuse atrophy. 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 Stable severe vascular calcification of the carotid siphons and the vertebral arteries. No intracranial mass or hemorrhage. The skull is intact. The sinuses, mastoids, and middle ears are clear. IMPRESSION: No acute disease or change from prior. This exam was performed using automated exposure control, adjustment of mA or kV according to patient size, and/or use of iterative reconstruction technique Electronically signed by Olayinka Teixeira 10/11/2018 7:51 AM
[2018-10-11] MEDS: DUONEB (A & A) INH SCH ×5 (07:55→22:37)
--- NOTE | 2018-10-11 08:02 | Diag Imaging Result Doc PS360 ---
CHEST-2 VIEWS - 10/11/2018 INDICATION: syncope COMPARISON: 08/21/2018 FINDINGS: Stable COPD. Stable interstitial pulmonary fibrosis bilaterally. No new infiltrates. Heart size is normal. IMPRESSION: COPD with pulmonary fibrosis. Electronically signed by Olayinka Teixeira 10/11/2018 7:59 AM
--- NOTE | 2018-10-11 08:35 | EKG Report ---
Test Performed on : 10/11/2018 03:07:33 AM Test Reason : CP Blood Pressure : / mmHG Vent. Rate : 081 BPM Atrial Rate : 081 BPM P-R Int : 188 ms QRS Dur : 072 ms QT Int : 410 ms P-R-T Axes : 081 -21 073 degrees QTc Int : 476 ms Normal sinus rhythm. Normal ECG When compared with ECG of 28-OCT-2016 18:42, Vent. rate has decreased BY 44 BPM Unconfirmed Result
[2018-10-11] MEDS: NICODERM PATCH TD SCH (11:10)
[2018-10-11 12:06] LABS: BILIRUBIN URINE NEGATIVE (NEGATIVE); BLOOD URINE NEGATIVE (NEGATIVE); CLARITY CLEAR (CLEAR); COLOR YELLOW; GLUCOSE URINE NEGATIVE (NEGATIVE); KETONE URINE NEGATIVE (NEGATIVE); LEUKOCYTES URINE NEGATIVE (NEGATIVE); NITRITE URINE NEGATIVE (NEGATIVE); PH URINE 6.5; PROTEIN URINE 1+(30 mg/dL) mg/dL (NEGATIVE); UROBILINOGEN URINE NORMAL
[2018-10-11 12:18] LABS: URINE EPITHELIAL CELLS <10 /HPF (<10); URINE SOURCE CLEAN CATCH
[2018-10-11] MEDS: ASPIRIN PO SCH (15:29)
[2018-10-11] MEDS: THERA M PLUS PO SCH (15:29)
[2018-10-11] MEDS: BENICAR PO SCH (15:29)
[2018-10-11] MEDS ORDERED: DESYREL PO SCH (21:00)
[2018-10-12] MEDS: DUONEB (A & A) INH SCH ×3 (03:38→11:17)
[2018-10-12 05:53] VITALS: BP 155/65
--- NOTE | 2018-10-12 08:01 | PROGRESS NOTE ---
DATE: 10/12/2018 An 83-year-old male who was admitted to the hospital with weakness, nausea and vomiting. The patient was at home, got up to go to the bathroom, got dizzy, began to vomit. Family says he might have passed out. Brought in. Denies any abdominal or chest pain. Family does report a fall out of the bed approximately a week ago without injury. Today, he is very alert. His temperature is 97.9 degrees, pulse is 73, respiratory rate 18, BP 155/65. O2 sat 97% on room air. He had some orthostatic blood pressures drawn yesterday. In the supine position, his blood pressure was 175, on standing, it dropped to 138. Pulse remained in the 70s. So there is a roughly 30 point change in his BP. He is breathing fine. He has no edema. Belly is soft. Chest: Increased AP diameter, diminished breath sounds and rhonchi. He is eager to go home. He is tolerating his diet and he has had numerous troponins that are negative. I am going to discharge him with antiemetics and follow him up as an outpatient. cc: Loco Loyd MD
[2018-10-12] MEDS: ASPIRIN PO SCH (08:26)
[2018-10-12] MEDS: NICODERM PATCH TD SCH (08:26)
[2018-10-12] MEDS: THERA M PLUS PO SCH (08:26)
[2018-10-12] MEDS: BENICAR PO SCH (08:26)
--- NOTE | 2018-10-13 15:45 | PROVIDER DOCUMENTATION ---
This chart was entered by Tonya Flynn Scribe, acting as scribe for Red Hardy MD. HPI-General Adult - General Source: patient - History of Present Illness -Gen Adult Nature of Presenting Problems: pt is a 83 yr old male presenting via EMS with complaint of weakness, nausea, vomiting. pt was at home, woke up to got to bathroom, became dizzy and began vomiting. pt denies any abdominal or chest pain. family does report fall out of bed 1 week ago without injury Location of Pain/Injury: reports: none Pain Radiation: reports: no radiation Quality of Pain: reports: none Severity: reports: moderate Onset/Duration: reports: just prior to arrival Timing: reports: still present Context/Activities at Onset: reports: light activity Modifying Factors: improves with: nothing Associated Symptoms: reports: fatigue, nausea, vomiting, weakness. denies: fever/chills Similar Symptoms Previously?: No Recently seen or treated by another doctor?: No <Red Hardy - Last Filed: 10/11/18 01:03> <Donato Zaragoza - Last Filed: 10/11/18 03:31> - General Chief Complaint: Nausea/Vomiting Stated Complaint: V/D Weakness Time Seen by Provider: 10/11/18 00:49 Allergies/Adverse Reactions: Patient Allergies Allergy/AdvReac Type Severity Reaction Status Date / Time No Known Allergies Allergy Verified 10/28/16 18:00 Home Medications: Home Medication List Medication Instructions Recorded Confirmed Last Taken Type Aspirin 81 mg PO DAILY 09/18/16 06/16/18 10/27/16 09:00 History Nicotine Patch [Nicoderm Patch] 21 mg TD DAILY #0 patch.[id number] 10/02/16 06/16/18 10/28/16 17:00 Rx Multivitamin [Multi-Day Vitamins] 1 each PO DAILY 06/16/18 06/16/18 Unknown History Olmesartan [Benicar] 40 mg PO DAILY 06/16/18 06/16/18 Unknown History Zolpidem Tartrate 10 mg PO HS 06/16/18 06/16/18 Unknown History Review of Systems - Adult - REVIEW OF SYSTEMS - ADULT Constitutional: reports: fatique. denies: fever Eyes: reports: no symptoms reported Ears, Nose, Mouth & Throat: reports: no symptoms reported Cardiovascular: denies: chest pain, palpitations, syncope Respiratory: denies: cough, shortness of breath Gastrointestinal: reports: nausea. denies: abdominal pain, vomiting Genitourinary: reports: no symptoms reported Musculoskeletal: reports: muscle weakness. denies: back pain, joint pain, neck pain Integumentary: reports: no symptoms reported Neurological: reports: dizziness/vertigo. denies: headache/migraines, syncope Psychiatric: reports: no symptoms reported Endocrine: reports: no symptoms reported Hematologic/Lymphatic: reports: no symptoms reported Allergic/Immunologic: reports: no symptoms reported All Other Systems: Reviewed and Negative <Red Hardy - Last Filed: 10/11/18 01:03> Past History - Adult - PAST MEDICAL HISTORY-ADULT Review of Records: reports: Old Records Reviewed, Nursing Assessment Review, Medications Reviewed, Social history reviewed & non-contributory. Major Childhood Illnesses: reports: denies history Cardiovascular: reports: HTN Respiratory: reports: COPD, pneumonia Gastrointestinal: reports: denies history Obstetrical/Gynecological: reports: denies history Genitourinary: reports: denies history Musculoskeletal: reports: denies history Neurological: reports: denies history Endocrine/Immune: reports: denies history Other Conditions: reports: denies history - PRIOR SURGERIES/PROCEDURES Surgical/Procedure History: reports: none - IMMUNIZATION STATUS Childhood Immunizations: See Nurse Assessment Flu Vaccine: See Nurse Assessment - FAMILY HISTORY Family History: reviewed, not pertinent - SOCIAL HISTORY Smoking: cigarettes, greater than 1 pack/day Provider spent 3-5 mins advising pt. on dangers of tobacco.: Discussed manners to quit use, and f/u contacts for add'l counseling. Substance Use: denies Living Situation: family <Red Hardy - Last Filed: 10/11/18 01:03> Physical Exam-General - PHYSICAL EXAM-ADULT Initial Vital Signs Reviewed: Yes - CONSTITUTIONAL General Appearance: alert, no apparent distress, thin - EYES Eyes: PERRL/EOMI - HEAD, EARS, NOSE, MOUTH & THROAT HENMT: normocephalic/atraumatic, moist mucous membranes, normal ENT inspection - NECK Neck: non-tender, full range of motion, supple, normal inspection - RESPIRATORY Respiratory: chest non-tender, no pleuratic chest pain, no respiratory distress , no accessory muscle use, crackles (diffuse) - CARDIOVASCULAR Cardiovascular: normal peripheral pulses, regular rate, rhythm, no edema - GASTROINTESTINAL (ABDOMEN) Abdominal Exam: normal bowel sounds, non tender, soft - LYMPHATIC Lymphatic: no adenopathy - MUSCULOSKELETAL Back Exam: normal inspection, no CVA tenderness, no vertebral tenderness Extremity: normal range of motion, non-tender, normal inspection - SKIN Integumentary: normal color, normal turgor, warm/dry - NEUROLOGIC Neurologic: grossly normal, no motor/sensory deficits - PSYCHIATRIC Psych/Mental Status: normal mood/affect, normal thought content, normal thought process, oriented x 3 <Red Hardy - Last Filed: 10/11/18 01:03> Progress - PLAN OF CARE/RESULTS Progress/Plan/Lab Results: Vital Signs - 8 hr 10/11/18 00:33 Temperature 98.0 F Pulse Rate 67 Respiratory Rate 18 Blood Pressure 112/64 O2 Sat by Pulse Oximetry 96 Orders Category Date Time Status Saline Loc NOW Care 10/11/18 00:51 Active CBC WITH ELECTRONIC DIFF [HEME] Stat Lab 10/11/18 00:51 Uncollected COMPREHENSIVE METABOLIC PANEL [CHEM] Stat Lab 10/11/18 00:51 Uncollected UA [URINALYSIS W/POSS RFLX CULT] [URINALYSIS] Stat Lab 10/11/18 00:51 Uncollected 0.9% Sodium Chloride Inj [Ns] 1,000 ml Med 10/11/18 00:51 Active IV 999 mls/hr Ondansetron [Zofran] Med 10/11/18 00:51 Discontinued 4 mg IV NOW ONE <Red Hardy - Last Filed: 10/11/18 01:03> - PLAN OF CARE/RESULTS Progress/Plan/Lab Results: Vital Signs - 8 hr 10/11/18 00:33 Temperature 98.0 F Pulse Rate 67 Respiratory Rate 18 Blood Pressure 112/64 O2 Sat by Pulse Oximetry 96 Laboratory Results - last 24 hr 10/11/18 10/11/18 01:25 01:25 WBC 10.26 RBC 5.01 Hgb 14.2 Hct 43.0 MCV 85.8 MCH 28.3 MCHC 33.0 RDW Std Deviation 15.4 H Plt Count 270 MPV 10.8 H Immature Gran % (Auto) 0.1 Neut % (Auto) 78.2 H Lymph % (Auto) 9.1 L Power % (Auto) 8.5 Eos % (Auto) 3.6 Baso % (Auto) 0.5 Immature Gran # (Auto) 0.01 Neut # (Auto) 8.03 H Lymph # (Auto) 0.93 L Power # (Auto) 0.87 H Eos # (Auto) 0.37 Baso # (Auto) 0.05 Sodium 138 Potassium 4.2 Chloride 99 Carbon Dioxide 25 Anion Gap 14 BUN 19 Creatinine 0.9 Estimated GFR/1.73 m2 > 60 BUN/Creatinine Ratio 21 Glucose 118 H Calculated Osmolality 279 Calcium 9.1 Total Bilirubin 0.40 AST 22 ALT 10 Alkaline Phosphatase 86 Total Protein 7.2 Albumin 4.1 Globulin 3.0 Albumin/Globulin Ratio 1.0 Orders Category Date Time Status Saline Loc NOW Care 10/11/18 00:51 Active CHEST-2 VIEWS [RAD] Stat Exams 10/11/18 01:[address] HEAD W/O CONTRAST [CT] Stat Exams 10/11/18 01:04 Taken CBC WITH ELECTRONIC DIFF [HEME] Stat Lab 10/11/18 01:25 Completed COMPREHENSIVE METABOLIC PANEL [CHEM] Stat Lab 10/11/18 01:25 Completed TROPONIN T Stat Lab 10/11/18 02:52 Ordered UA [URINALYSIS W/POSS RFLX CULT] [URINALYSIS] Stat Lab 10/11/18 00:51 Uncollected 0.9% Sodium Chloride Inj [Ns] 1,000 ml Med 10/11/18 00:51 Discontinued IV 999 mls/hr Ondansetron [Zofran] Med 10/11/18 00:51 Discontinued 4 mg IV NOW ONE EKG [EKG] Stat Ther 10/11/18 01:04 Ordered Result Diagrams: 10/11/18 01:25 10/11/18 01:25 - REASSESSMENT Reassessment #1 Time Reassessed: 03:03 Status: unchanged (Seen and examined by me. Case discussed with Dr. Hardy at shift change. Has had several large diarrheal stools in ED, multiple episodes of emesis at home with near syncope.) Reassessment Comment: Chart was left in [facility] by Dr. Hardy - EKG 1 Time of EKG reading by physician:: 03:23 EKG Read and Signed by:: Donato Zaragoza EKG Interpretation (*Must complete 3 of following elements*): Abnormal Rate: 81 Rhythm: NSR [place]: normal QRS: poor R wave progression, other (biatrial enlargement) ST Wave: normal - XRAY 1 XRAY Study: Chest Impression: Abnormal (COPD, scarring/pulmonary fibrosis RUL/RML, unchanged from prior CXR 08/21/18) - CT/MRI 1 MRI Study: Head Impression: Abnormal, See EMR Report (Per radiology group, [place]: Dr. Titus: Moderate atrophy, no acute intracranial findings, no significant change in intracranial exam.) - CONSULTS/PCP/HOSPITALIST Notification #1 *Consult/PCP/Hospitalist*: Rach called at 0325 Time Discussed: 03:28 Consult Disposition: Admit <Donato Zaragoza - Last Filed: 10/11/18 03:31> Departure <Red Hardy - Last Filed: 10/11/18 01:03> - Departure Date of Disposition Decision: 10/11/18 Time of Disposition Decision: 03:25 Certified Medical Emergency: Emergent - Critical Care Note This patient required my direct & personal management of CC.: No <Donato Zaragoza - Last Filed: 10/11/18 03:31> - Departure DIAGNOSIS: Nausea, vomiting and diarrhea, Syncope, near Disposition: ADMITTED INPATIENT 09 Condition: Fair Referrals and Follow-Ups: Loco Loyd MD [Primary Care Provider] - Attestation - Physician/ MARIA DE JESUS Attestation Patient care was provided by Advanced Practice Provider:: No The physician spent face to face time with patient:: Yes Advanced Practice Provider documentation review:: Supervising physician onsite and consulted in the evaluation and care of this patient. The physician did have a face to face encounter with the patient. <Donato Zaragoza - Last Filed: 10/11/18 03:31> This chart was documented by the indicated scribe, (Tonya Flynn Scribe) and accurately reflects the services I performed and decisions made by , Red Hardy MD, as attested by the provider's signature.
--- NOTE | 2018-10-14 12:51 | EKG Report ---
Test Performed on : 10/11/2018 4:18:48 PM Test Reason : syncope Blood Pressure : / mmHG Vent. Rate : 077 BPM Atrial Rate : 077 BPM P-R Int : 188 ms QRS Dur : 076 ms QT Int : 410 ms P-R-T Axes : 074 -52 070 degrees QTc Int : 463 ms Normal sinus rhythm. Left anterior fascicular block Abnormal ECG When compared with ECG of 11-OCT-2018 03:07, (Unconfirmed) Left anterior fascicular block is now present Confirmed by Loco Loyd MD ([id number]) on 10/26/2018 7:46:41 AM
--- NOTE | 2018-10-14 12:52 | EKG Report ---
Test Performed on : 10/11/2018 10:29:08 PM Test Reason : syncope Blood Pressure : / mmHG Vent. Rate : 072 BPM Atrial Rate : 072 BPM P-R Int : 202 ms QRS Dur : 074 ms QT Int : 414 ms P-R-T Axes : 077 -33 067 degrees QTc Int : 453 ms Normal sinus rhythm. Left axis deviation Abnormal ECG When compared with ECG of 11-OCT-2018 16:18, (Unconfirmed) No significant change was found Confirmed by Loco Loyd MD ([id number]) on 10/26/2018 7:46:37 AM
--- NOTE | 2018-10-26 09:53 | HISTORY AND PHYSICAL ---
TIME OF ADMISSION: 1:00 a.m. HISTORY OF PRESENT ILLNESS: This is a regular clinic patient of mine that I have been seeing for many years who presented to the Emergency Room complaining of weakness, nausea, and vomiting. He was at home and woke up to go to the bathroom and became dizzy and began to vomit. He was feeling nauseated when he went to the bathroom. He denied any abdominal or chest pain. The family acknowledges that he had fallen out of the bed a week earlier without dizziness but just fell. So, in the E.R. he was seen by the fellow and he was admitted to the hospital. His database that had lead to his admission showed a CT of the head that showed atrophy and was otherwise negative. Chest x-ray showed COPD and fibrosis and was otherwise negative. EKG showed sinus rhythm and poor R wave progression and was otherwise negative. His lab report revealed an hematocrit of 43, hemoglobin 14.2, white count 10,260, and platelet count 270. Electrolytes were normal. He was admitted as nausea, vomiting, diarrhea, and near syncope. ALLERGIES: He has no known allergies. SOCIAL HISTORY: He is a smoker with serious COPD. MEDICATIONS: His medications include nebulized albuterol/ipratropium. He takes aspirin, Benicar 40 mg, and Ambien at bedtime. PAST MEDICAL HISTORY: He has a longstanding history of hypertension, COPD induced by cigarettes, history of pneumonia, and the history recently of some issues with his gut with diarrhea and constipation and he has had an extensive workup and nothing of any consequence has been found. REVIEW OF SYSTEMS: Constitutional: He denies any fever, chills, or night sweats. Eyes: Visual bernstein are fine. No change in vision. No irritation of his eyes. Ears, Nose, and Throat: No pharyngitis, otitis, or sinusitis. Cardiovascular: He denied chest pain, palpitations, syncope, edema, PND, or orthopnea. Respiratory: He has a chronic cough. No significant worsening. He is a bit hoarse at all times. No significant worsening. Gastrointestinal: He has been nauseated lately. Not really constipated. No diarrhea. No bloody stools or black tarry stools. : Just lower urinary tract obstructive symptoms, otherwise negative. Musculoskeletal: He is just generally weak. No particular joints bother him. Skin: No rashes or lesions. Neurological: He frequently is dizzy and off balance. He takes his time getting up because of the fear of falling. Psychiatric: Negative. Endo: No diabetes or thyroid disorder. Hematological: He denies any bleeding or blood clotting. Allergy/Immunological: Negative for asthma. He just has simple COPD. At the time of admission his temperature was 98, pulse 67, respiratory rate 18, BP 112/64, and O2 saturation 96%. He was given a liter of saline and 4 mg of Zofran downstairs in the Emergency Room. DIAGNOSTIC DATA: His presenting white count was 10,260. Hemoglobin was 14.2 with hematocrit of 43. Platelet count was 270,000. Differential showed 78% segs, 9.1 lymphocytes, and 8.5 monocytes. Potassium was 4.2, sodium 138, chloride 99, CO2 25, BUN14, creatinine 0.9, and GFR greater than 60. Albumin was normal at 4.1. Total protein was 72 and globulin 3. AST and ALT were normal. Bilirubin and ALK PHOS were negative. Glucose was 118. Report included a head CT which showed just diffuse atrophy. No significant pathology. Chest x- ray showed COPD with pulmonary fibrosis, unchanged from previous. He had EKGs and telemetry that revealed mostly a sinus rhythm with no significant arrhythmias evident on his scan. PHYSICAL EXAMINATION: VITAL SIGNS: Temp 98, pulse 67, respiratory rate 18, BP 112/64, and O2 saturation 96%. HEENT: Head was normocephalic. Some temporal wasting. Eyes: PERRL. EOMs intact. Sclerae clear. Fundi not visualized. Nares patent. Oropharynx negative. NECK: Midline trachea. No lymphadenopathy. Carotid without bruits. No JVD. CHEST: Diminished rhonchus breath sounds. No consolidated features. No rubs. Nontender. ABDOMEN: Scaphoid. No hepatosplenomegaly. No CVA tenderness. EXTREMITIES: Negative for clubbing, cyanosis, or edema. NEUROLOGIC: Exam was intact. ADMITTING DIAGNOSES: 1. Gastrointestinal illness with probable vasovagal syncope. 2. History of chronic obstructive pulmonary disease. 3. History of hypertension. 4. Lifelong smoker. cc: Loco Loyd MD
--- NOTE | 2018-10-26 11:14 | DISCHARGE SUMMARY ---
ADMISSION DATE: 10/11/2018 DISCHARGE DATE: 10/12/2018 HISTORY OF PRESENT ILLNESS: This is a patient of mine, an 83-year-old male with hypertension, COPD, had a bout of nausea, vomiting, weakness, and apparently a syncopal episode briefly where he had fallen into the bathroom. He has had some issues with falls anyhow, but he does not remember falling on this particular occasion. He was admitted as a fall with syncope. He was given some fluids. He had stable vital signs when he got here. His orthostatics showed supine blood pressure was 175/66, standing 138/61, heart rate went from 70 to 75. He was hospitalized for 2 days. There were no significant findings. He had multiple troponins which were negative. His urine showed 1.010 specific gravity, 1 to 2 WBCs, otherwise negative. Chemistries as dictated on the admission. He was treated symptomatically, given fluids. He was treated with Zofran as needed. He was given 1 L of fluid and was started on a normal saline drip 75 mL per hour. He was kept on his albuterol, ipratropium, nicotine patch, and aspirin. Olmesartan was continued. Trazodone was continued from home. The following day, his vital signs were stable. He was having no orthostatic changes. No vasovagal issues. He was discharged home. DIAGNOSES: 1. Gastroenteritis with a vasovagal faint. 2. Chronic obstructive pulmonary disease. 3. Hypertension. cc: Loco Loyd MD
== END 2018-10-12 11:57 | disposition home or self-care (01) ==
LOC: P.MEDSURG 00:31 → P.ED 00:31
PROVIDERS: ADMIT Internal Medicine; ATTEND Internal Medicine
CPT/HCPCS: 36415; 70450; 71020; 71046; 80053; 81001; 84484; 85025; 93005; 93010; 94640; 94761; 96360; 96361; 96372; 96374; 99285; A9270; G0378; J2405; J7030

== ENCOUNTER 2018-11-10 16:09 | Inpatient (IN) ==
[2018-11-10] MEDS ORDERED: TYLENOL PO ONE (16:31)
[2018-11-10] MEDS ORDERED: NS 1,000 ML IV ONE (16:34)
[2018-11-10 17:17] LABS: BASO# 0.02 X1000 (0.0-0.2); BASO% 0.1 % (0.0-0.8); EOS# 0.11 X1000 (0.0-0.7); EOS% 0.7 % (0.0-10.0); HEMATOCRIT 35.3 % (42.0-52.0); HEMOGLOBIN 11.5 g/dL (14.0-18.0); IMM GRAN# 0.05 X1000 (0.0-0.04); IMM GRAN% 0.3 % (0.0-0.5); LYMPH# 0.63 X1000 (1.2-3.4); LYMPH% 4.1 % (20.5-51.1); MCH 28.3 PG (27-31); MCHC 32.6 g/dL (33-37); MCV 86.7 FL (81-99); MONO# 0.54 X1000 (0.11-0.59); MONO% 3.5 % (1.7-9.3); MPV 9.6 FL (7.4-10.4); NEUT# 14.08 X1000 (1.4-6.5); NEUT% 91.3 % (42.2-75.2); PLT 408 X1000 (130-400); RBC 4.07 XMIL (4.7-6.1); RDW 14.5 % (11.5-14.5); WBC 15.43 X1000 (4.8-10.8)
[2018-11-10 17:24] LABS: AMYLASE 47 U/L (20-200); LIPASE 13 U/L (13-60)
[2018-11-10] MEDS ORDERED: ROCEPHIN 2 GM in NS 50 ML IV ONE (17:25)
[2018-11-10 17:28] LABS: INR 0.96; PROTIME 13.3 Seconds (11.0-16.0)
[2018-11-10 17:29] LABS: PTT 33.9 Seconds (22.3-41.8)
--- NOTE | 2018-11-10 17:45 | Diag Imaging Result Doc PS360 ---
EXAM: CHEST-1 VIEW HISTORY: FEVER TECHNIQUE: Chest two views COMPARISON: 10/11/2018 FINDINGS: The lungs are hyperexpanded. There are increased interstitial markings most pronounced in the mid right lung. These are questionably slightly more dense on the current study. No cardiomegaly. No pleural effusions identified. IMPRESSION: Emphysema with pulmonary fibrosis. Questionable small underlying infiltrates. Electronically signed by David Duran 11/10/2018 5:42 PM
--- NOTE | 2018-11-10 17:46 | Diag Imaging Result Doc PS360 ---
EXAM: KUB ABDOMEN HISTORY: ABD PAIN TECHNIQUE: Abdomen single view COMPARISON: 06/15/2018 FINDINGS: No free air beneath the diaphragm. Prominent atherosclerosis. No bowel obstruction. No organomegaly. IMPRESSION: No acute abnormality. Electronically signed by David Duran 11/10/2018 5:43 PM
[2018-11-10 17:48] LABS: INFLUENZA A NEGATIVE (NEGATIVE); INFLUENZA B NEGATIVE (NEGATIVE)
[2018-11-10 17:50] LABS: AGAP 16; ALBUMIN 3.9 g/dL (3.5-5.0); ALKALINE PHOSPHATASE 94 U/L (32-122); BUN 23 mg/dL (8-22); CALCIUM 8.5 mg/dL (8.8-10.2); CHLORIDE 95 mmol/L (98-107); CK PROFILE 48 U/L (24-204); COSMO 274; CREATININE 1.1 mg/dL (0.7-1.2); ESTIMATED GFR > 60; GLUCOSE 94 mg/dL (70-104); GOT 18 U/L (10-34); GPT 15 U/L (10-44); POTASSIUM 5.9 mmol/L (3.5-5.1); SODIUM 135 mmol/L (136-145); TCO2 25 mmol/L (25-35); TOTAL PROTEIN 7.5 g/dL (6.3-8.3)
[2018-11-10] MEDS: ROCEPHIN 1 GM in NS 50 ML IV SCH ×2 (17:50→17:53)
[2018-11-10 18:39] LABS: BILIRUBIN URINE NEGATIVE (NEGATIVE); BLOOD URINE TRACE (NEGATIVE); CLARITY SL. CLOUDY (CLEAR); COLOR YELLOW; GLUCOSE URINE NEGATIVE (NEGATIVE); KETONE URINE TRACE mg/dL (NEGATIVE); LEUKOCYTES URINE TRACE (NEGATIVE); NITRITE URINE NEGATIVE (NEGATIVE); PROTEIN URINE 1+(30 mg/dL) mg/dL (NEGATIVE); SP GRAVITY URINE 1.015; UROBILINOGEN URINE 1 mg/dL
[2018-11-10 18:40] LABS: URINE BACTERIA 1+ /HFP; URINE EPITHELIAL CELLS <10 /HPF (<10); URINE RBC <10 /HPF (<10); URINE WBC <10 /HPF (<10); URINE YEAST NONE SEEN /HPF
[2018-11-10 18:41] LABS: URINE CAST EPITHELIAL PRESENT /LPF; URINE CRYSTAL NONE SEEN /HPF; URINE SOURCE CATH
--- NOTE | 2018-11-10 19:04 | PROVIDER DOCUMENTATION ---
This chart was entered by Pallavi Gaming Scribe, acting as scribe for Ha Cardozo MD. HPI-Abdominal Pain/GI Problem - General Source: patient, family - History of Present Illness-ABD Nature of Presenting Problems: 83 y/o male presents to ED with low abdominal pain, vomiting, weakness, and fever onset this afternoon. Pt is alert and oriented x1. Abdominal Pain Onset Location: reports: RLQ, LLQ Pain Radiation: reports: no radiation Quality of Pain: reports: aching Severity in ED: reports: mild Onset/Duration: reports: this afternoon Timing: reports: still present Activities at Onset: reports: none Exposure to sick contacts?: No Modifying Factors: improves with: nothing Associated Symptoms: reports: fever/chills, vomiting, weakness, other (low abdominal pain) Last BM: unsure Dark Stools Present?: reports: none noticed Rectal Bleeding: reports: none Rectal Pain: reports: none Similar Symptoms Previously?: No Recently seen or treated by another doctor?: No <Ha Cardozo - Last Filed: 11/10/18 19:04> <Loco Loyd - Last Filed: 11/18/18 15:27> - General Chief Complaint: Abdominal Pain Stated Complaint: HIGH FEVER NO ENERGY Time Seen by Provider: 11/10/18 16:24 Allergies/Adverse Reactions: Patient Allergies Allergy/AdvReac Type Severity Reaction Status Date / Time No Known Allergies Allergy Verified 10/28/16 18:00 Home Medications: Home Medication List Medication Instructions Recorded Confirmed Last Taken Type Aspirin 81 mg PO DAILY 09/18/16 11/10/18 10/27/16 09:00 History Multivitamin [Multi-Day Vitamins] 1 each PO DAILY 06/16/18 11/10/18 Unknown History Olmesartan [Benicar] 10 mg PO DAILY 06/16/18 11/10/18 Unknown History Trazodone [Desyrel] 100 mg PO QHS 11/10/18 11/10/18 Unknown History Review of Systems - Adult - REVIEW OF SYSTEMS - ADULT Constitutional: reports: fever. denies: chills Eyes: reports: no symptoms reported Ears, Nose, Mouth & Throat: reports: no symptoms reported Cardiovascular: denies: chest pain, palpitations Respiratory: denies: cough, shortness of breath Gastrointestinal: reports: abdominal pain, vomiting. denies: diarrhea, nausea Genitourinary: reports: no symptoms reported Musculoskeletal: denies: back pain, joint pain Integumentary: reports: no symptoms reported Neurological: reports: other (weakness). denies: dizziness/vertigo, seizure Psychiatric: reports: no symptoms reported Endocrine: reports: no symptoms reported Hematologic/Lymphatic: reports: no symptoms reported Allergic/Immunologic: reports: no symptoms reported All Other Systems: Reviewed and Negative <Ha Cardozo - Last Filed: 11/10/18 19:04> Past History - Adult - PAST MEDICAL HISTORY-ADULT Review of Records: reports: Old Records Reviewed, Nursing Assessment Review, Medications Reviewed Major Childhood Illnesses: reports: denies history Cardiovascular: reports: HTN Respiratory: reports: COPD, pneumonia Gastrointestinal: reports: denies history Obstetrical/Gynecological: reports: denies history Genitourinary: reports: denies history Musculoskeletal: reports: denies history Neurological: reports: denies history Endocrine/Immune: reports: denies history Other Conditions: reports: denies history - PRIOR SURGERIES/PROCEDURES Surgical/Procedure History: reports: none - IMMUNIZATION STATUS Childhood Immunizations: See Nurse Assessment Flu Vaccine: See Nurse Assessment - FAMILY HISTORY Family History: reviewed, not pertinent - SOCIAL HISTORY Smoking: greater than 1 pack/day Provider spent 3-5 mins advising pt. on dangers of tobacco.: Discussed manners to quit use, and f/u contacts for add'l counseling. Substance Use: none/never Alcohol Use Frequency: never Living Situation: family <Ha Cardozo - Last Filed: 11/10/18 19:04> Physical Exam-General - PHYSICAL EXAM-ADULT Initial Vital Signs Reviewed: Yes - CONSTITUTIONAL General Appearance: appears well, alert, no apparent distress - EYES Eyes: PERRL/EOMI, pink conjunctivae - HEAD, EARS, NOSE, MOUTH & THROAT HENMT: normocephalic/atraumatic, moist mucous membranes, normal ENT inspection - NECK Neck: non-tender, full range of motion - RESPIRATORY Respiratory: chest non-tender, lungs clear, normal breath sounds - CARDIOVASCULAR Cardiovascular: normal peripheral pulses, regular rate, rhythm - GASTROINTESTINAL (ABDOMEN) Abdominal Exam: normal bowel sounds, non tender, soft - MUSCULOSKELETAL Back Exam: normal inspection, no CVA tenderness Extremity: normal range of motion, non-tender, normal gait - SKIN Integumentary: normal color, warm/dry - NEUROLOGIC Neurologic: grossly normal - PSYCHIATRIC Psych/Mental Status: normal mood/affect, normal thought content, normal thought process, other (oriented x1) <Ha Cardozo - Last Filed: 11/10/18 19:04> Progress - PLAN OF CARE/RESULTS Progress/Plan/Lab Results: Vital Signs - 8 hr 11/10/18 16:11 Temperature 101.6 F H Pulse Rate 122 H Respiratory Rate 24 Blood Pressure 146/071 O2 Sat by Pulse Oximetry 93 L Orders Category Date Time Status Cardiac Monitoring DIRECTED Care 11/10/18 16:23 Active IV Insertion ORDERED Care 11/10/18 16:23 Completed Notify MD of + Sepsis Screen NOW Care 11/10/18 16:23 Active Notify Physician As Ordered Care 11/10/18 16:23 Active CHEST-1 VIEW [RAD] Stat Exams 11/10/18 16:23 Ordered KUB ABDOMEN [RAD] Stat Exams 11/10/18 16:33 Ordered AMYLASE [CHEM] Stat Lab 11/10/18 16:50 Received BLOOD CULTURE [BLDCUL] Stat Lab 11/10/18 16:24 Ordered CBC WITH DIFF [HEME] Stat Lab 11/10/18 16:50 Results CK PROFILE [SP CHEM] Stat Lab 11/10/18 16:50 Received COMPREHENSIVE METABOLIC PANEL [CHEM] Stat Lab 11/10/18 16:50 Received Flu [INFLUENZA SCREEN PL] Stat Lab 11/10/18 16:24 Ordered LACTATE, PLASMA [CHEM] Lab 11/10/18 19:30 Uncollected LACTATE, PLASMA [CHEM] Lab 11/10/18 22:30 Uncollected LACTATE, PLASMA [CHEM] Q3H Lab 11/10/18 16:50 Received LIPASE [CHEM] Stat Lab 11/10/18 16:50 Received PROTIME WITH INR [COAG] Stat Lab 11/10/18 16:50 Received PTT [COAG] Stat Lab 11/10/18 16:50 Received TROPONIN T Stat Lab 11/10/18 16:[address] W/POSS RFLX CULT [URINALYSIS] Stat Lab 11/10/18 16:23 Uncollected 0.9% Sodium Chloride Inj [Ns] 1,000 ml Med 11/10/18 16:34 Active IV 999 mls/hr Acetaminophen [Tylenol] Med 11/10/18 16:31 Discontinued 650 mg PO NOW ONE Oxygen Device Stat Oth 11/10/18 16:23 Active EKG [EKG] Stat Ther 11/10/18 17:00 Ordered Result Diagrams: 11/10/18 16:50 11/10/18 16:50 - XRAY 1 XRAY Study: Abdomen Impression: Normal (FINDINGS: No free air beneath the diaphragm. Prominent atherosclerosis. No bowel obstruction. No organomegaly. IMPRESSION: No acute abnormality. Electronically signed by David Duran 11/10/2018 5:43 PM) 2 XRAY Study: Chest Impression: Abnormal (FINDINGS: The lungs are hyperexpanded. There are increased interstitial markings most pronounced in the mid right lung. These are questionably slightly more dense on the current study. No cardiomegaly. No pleural effusions identified. IMPRESSION: Emphysema with pulmonary fibrosis. Questionable small underlying infiltrates. Electronically signed by David Duran 11/10/2018 5:42 PM) <Ha Cardozo - Last Filed: 11/10/18 19:04> - PLAN OF CARE/RESULTS Progress/Plan/Lab Results: Vital Signs - 8 hr 11/10/18 16:11 11/10/18 16:51 11/10/18 17:00 Temperature 101.6 F H Pulse Rate 122 H 113 H 109 H Respiratory Rate 24 30 H 28 H Blood Pressure 146/071 147/80 142/76 O2 Sat by Pulse Oximetry 93 L 96 94 L 11/10/18 17:15 11/10/18 17:31 11/10/18 17:45 Temperature Pulse Rate 105 H 101 H 95 H Respiratory Rate 23 26 H 22 Blood Pressure 112/54 123/54 108/56 O2 Sat by Pulse Oximetry 98 97 97 11/10/18 17:57 11/10/18 18:01 11/10/18 18:15 Temperature 100.6 F H Pulse Rate 92 H 87 Respiratory Rate 20 19 Blood Pressure 107/53 106/42 O2 Sat by Pulse Oximetry 98 97 11/10/18 18:30 11/10/18 18:49 Temperature Pulse Rate 88 87 Respiratory Rate 24 23 Blood Pressure 98/51 109/53 O2 Sat by Pulse Oximetry 98 97 Laboratory Results - last 24 hr 11/10/18 11/10/18 11/10/18 16:24 16:50 16:50 WBC 15.43 H RBC 4.07 L Hgb 11.5 L Hct 35.3 L MCV 86.7 MCH 28.3 MCHC 32.6 L RDW Std Deviation 14.5 Plt Count 408 H MPV 9.6 Immature Gran % (Auto) 0.3 Neut % (Auto) 91.3 H Lymph % (Auto) 4.1 L Blanco % (Auto) 3.5 Eos % (Auto) 0.7 Baso % (Auto) 0.1 Immature Gran # (Auto) 0.05 H Neut # (Auto) 14.08 H Lymph # (Auto) 0.63 L Blanco # (Auto) 0.54 Eos # (Auto) 0.11 Baso # (Auto) 0.02 PT INR PTT (Actin FS) Sodium 135 L Potassium 5.9 H Chloride 95 L Carbon Dioxide 25 Anion Gap 16 BUN 23 H Creatinine 1.1 Estimated GFR/1.73 m2 > 60 BUN/Creatinine Ratio 21 Glucose 94 Calculated Osmolality 274 Calcium 8.5 L Total Bilirubin 0.30 AST 18 ALT 15 Alkaline Phosphatase 94 Creatine Kinase 48 Troponin T Total Protein 7.5 Albumin 3.9 Globulin 4.0 Albumin/Globulin Ratio 1.0 Amylase Lipase Plasma Lactate Urine Source Urine Color Urine Clarity Urine pH Ur Specific [place] Urine Protein Urine Ketones Urine Blood Urine Nitrite Urine Bilirubin Urine Urobilinogen Urine Microscopic RBC Urine WBC Urine Microscopic WBC Ur Epithelial Cells Urine Crystals Urine Bacteria Urine Casts Urine Yeast Urine Glucose Influenza A (Rapid) NEGATIVE Influenza B (Rapid) NEGATIVE 11/10/18 11/10/18 11/10/18 16:50 16:50 16:50 WBC RBC Hgb Hct MCV MCH MCHC RDW Std Deviation Plt Count MPV Immature Gran % (Auto) Neut % (Auto) Lymph % (Auto) Blanco % (Auto) Eos % (Auto) Baso % (Auto) Immature Gran # (Auto) Neut # (Auto) Lymph # (Auto) Blanco # (Auto) Eos # (Auto) Baso # (Auto) PT 13.3 INR 0.96 PTT (Actin FS) 33.9 Sodium Potassium Chloride Carbon Dioxide Anion Gap BUN Creatinine Estimated GFR/1.73 m2 BUN/Creatinine Ratio Glucose Calculated Osmolality Calcium Total Bilirubin AST ALT Alkaline Phosphatase Creatine Kinase Troponin T < 0.010 Total Protein Albumin Globulin Albumin/Globulin Ratio Amylase Lipase Plasma Lactate 1.6 Urine Source Urine Color Urine Clarity Urine pH Ur Specific [place] Urine Protein Urine Ketones Urine Blood Urine Nitrite Urine Bilirubin Urine Urobilinogen Urine Microscopic RBC Urine WBC Urine Microscopic WBC Ur Epithelial Cells Urine Crystals Urine Bacteria Urine Casts Urine Yeast Urine Glucose Influenza A (Rapid) Influenza B (Rapid) 11/10/18 11/10/18 16:50 17:46 WBC RBC Hgb Hct MCV MCH MCHC RDW Std Deviation Plt Count MPV Immature Gran % (Auto) Neut % (Auto) Lymph % (Auto) Blanco % (Auto) Eos % (Auto) Baso % (Auto) Immature Gran # (Auto) Neut # (Auto) Lymph # (Auto) Blanco # (Auto) Eos # (Auto) Baso # (Auto) PT INR PTT (Actin FS) Sodium Potassium Chloride Carbon Dioxide Anion Gap BUN Creatinine Estimated GFR/1.73 m2 BUN/Creatinine Ratio Glucose Calculated Osmolality Calcium Total Bilirubin AST ALT Alkaline Phosphatase Creatine Kinase Troponin T Total Protein Albumin Globulin Albumin/Globulin Ratio Amylase 47 Lipase 13 Plasma Lactate Urine Source CATH Urine Color YELLOW Urine Clarity SL. CLOUDY A Urine pH 5.0 Ur Specific [place] 1.015 Urine Protein 1+(30 mg/dL) A Urine Ketones TRACE Urine Blood TRACE Urine Nitrite NEGATIVE Urine Bilirubin NEGATIVE Urine Urobilinogen 1 Urine Microscopic RBC <10 Urine WBC TRACE A Urine Microscopic WBC <10 Ur Epithelial Cells <10 Urine Crystals NONE SEEN Urine Bacteria 1+ Urine Casts EPITHELIAL PRESENT Urine Yeast NONE SEEN Urine Glucose NEGATIVE Influenza A (Rapid) Influenza B (Rapid) Orders Category Date Time Status Cardiac Monitoring DIRECTED Care 11/10/18 16:23 Active IV Insertion ORDERED Care 11/10/18 16:23 Completed Notify MD of + Sepsis Screen NOW Care 11/10/18 16:23 Active Notify Physician As Ordered Care 11/10/18 16:23 Active CHEST-1 VIEW [RAD] Stat Exams 11/10/18 16:23 Completed KUB ABDOMEN [RAD] Stat Exams 11/10/18 16:33 Completed AMYLASE [CHEM] Stat Lab 11/10/18 16:50 Completed BLOOD CULTURE [BLDCUL] Stat Lab 11/10/18 16:24 Ordered CBC WITH DIFF [HEME] Stat Lab 11/10/18 16:50 Completed CK PROFILE [SP CHEM] Stat Lab 11/10/18 16:50 Completed COMPREHENSIVE METABOLIC PANEL [CHEM] Stat Lab 11/10/18 16:50 Completed Flu [INFLUENZA SCREEN PL] Stat Lab 11/10/18 16:24 Completed LACTATE, PLASMA [CHEM] Lab 11/10/18 19:30 Uncollected LACTATE, PLASMA [CHEM] Lab 11/10/18 22:30 Uncollected LACTATE, PLASMA [CHEM] Q3H Lab 11/10/18 16:50 Completed LIPASE [CHEM] Stat Lab 11/10/18 16:50 Completed PROTIME WITH INR [COAG] Stat Lab 11/10/18 16:50 Completed PTT [COAG] Stat Lab 11/10/18 16:50 Completed TROPONIN T Stat Lab 11/10/18 16:[address] W/POSS RFLX CULT [URINALYSIS] Stat Lab 11/10/18 17:46 Completed URINE CULTURE [RM] Routine Lab 11/10/18 18:41 Ordered 0.9% Sodium Chloride Inj [Ns] 1,000 ml Med 11/10/18 16:34 Discontinued IV 999 mls/hr Acetaminophen [Tylenol] Med 11/10/18 16:31 Discontinued 650 mg PO NOW ONE CefTRIAXONE [Rocephin] 1 gm Med 11/10/18 17:30 Discontinued 0.9% Sodium Chloride Inj [Ns] 50 ml IV Q30M CefTRIAXONE [Rocephin] 2 gm Med 11/10/18 17:25 Discontinued 0.9% Sodium Chloride Inj [Ns] 50 ml IV NOW Oxygen Device Stat Oth 11/10/18 16:23 Active EKG [EKG] Stat Ther 11/10/18 17:00 Ordered This was a shared visit with Dr. Cardozo Result Diagrams: 11/11/18 17:14 11/11/18 17:14 <Loco Loyd - Last Filed: 11/18/18 15:27> Departure - Departure Certified Medical Emergency: Emergent - Critical Care Note This patient required my direct & personal management of CC.: No <Ha Cardozo - Last Filed: 11/10/18 19:04> - Departure Date of Disposition Decision: 11/10/18 Time of Disposition Decision: 18:53 Certified Medical Emergency: Emergent - Critical Care Note This patient required my direct & personal management of CC.: No <Loco Loyd - Last Filed: 11/18/18 15:27> - Departure DIAGNOSIS: Weakness generalized, Fever Disposition: ADMITTED INPATIENT 09 Condition: Stable Attestation - Physician/ MARIA DE JESUS Attestation Patient care was provided by Advanced Practice Provider:: No The physician spent face to face time with patient:: Yes Advanced Practice Provider documentation review:: Supervising physician onsite and consulted in the evaluation and care of this patient. The physician did have a face to face encounter with the patient. <Ha Cardozo - Last Filed: 11/10/18 19:04> - Physician/ MARIA DE JESUS Attestation Patient care was provided by Advanced Practice Provider:: Yes Advanced Practice Provider documentation review:: The Mid-level provider documentation, treatment plan and medical decision making was reviewed by the physician who agrees with all treatment and medical decision making by the MLP. The physician spent face to face time with patient:: Yes Advanced Practice Provider documentation review:: Supervising physician onsite a nd consulted in the evaluation and care of this patient. The physician did have a face to face encounter with the patient. <Loco Loyd - Last Filed: 11/18/18 15:27> This chart was documented by the indicated scribe, (Pallavi Gaming, Lang) and accurately reflects the services I performed and decisions made by me, Ha Cardozo MD, as attested by the provider's signature.
[2018-11-10] MEDS ORDERED: NICODERM PATCH TD ONE ×2 (19:07→20:34)
[2018-11-10] MEDS ORDERED: ROCEPHIN 1 GM in NS 50 ML IV SCH (20:34)
[2018-11-10] MEDS: DUONEB (A & A) INH SCH ×2 (21:04→23:10)
[2018-11-10] MEDS: DESYREL PO SCH (22:32)
[2018-11-10] MEDS: NS 1,000 ML IV SCH (22:32)
[2018-11-11] MEDS: DUONEB (A & A) INH SCH ×6 (03:01→23:16)
[2018-11-11] MEDS ORDERED: PNEUMOVAX 23 IM ONE (09:00)
[2018-11-11] MEDS: BENICAR PO SCH (09:15)
[2018-11-11] MEDS: ASPIRIN PO SCH (09:15)
[2018-11-11] MEDS: THERA M PLUS PO SCH (09:15)
[2018-11-11] MEDS: NS 1,000 ML IV SCH (09:31)
[2018-11-11 17:23] LABS: BASO# 0.02 X1000 (0.0-0.2); BASO% 0.2 % (0.0-0.8); EOS# 0.24 X1000 (0.0-0.7); HEMATOCRIT 32.6 % (42.0-52.0); HEMOGLOBIN 10.4 g/dL (14.0-18.0); IMM GRAN# 0.03 X1000 (0.0-0.04); IMM GRAN% 0.3 % (0.0-0.5); LYMPH# 0.92 X1000 (1.2-3.4); LYMPH% 7.8 % (20.5-51.1); MCHC 31.9 g/dL (33-37); MCV 87.9 FL (81-99); MONO# 0.72 X1000 (0.11-0.59); MONO% 6.1 % (1.7-9.3); MPV 9.7 FL (7.4-10.4); NEUT# 9.92 X1000 (1.4-6.5); NEUT% 83.6 % (42.2-75.2); PLT 403 X1000 (130-400); RBC 3.71 XMIL (4.7-6.1); RDW 14.5 % (11.5-14.5); WBC 11.85 X1000 (4.8-10.8)
[2018-11-11 17:53] LABS: AGAP 11; ALBUMIN 3.4 g/dL (3.5-5.0); ALKALINE PHOSPHATASE 88 U/L (32-122); BUN 14 mg/dL (8-22); CALCIUM 8.3 mg/dL (8.8-10.2); CHLORIDE 96 mmol/L (98-107); COSMO 266; CREATININE 0.7 mg/dL (0.7-1.2); ESTIMATED GFR > 60; GLUCOSE 120 mg/dL (70-104); GOT 15 U/L (10-34); GPT 12 U/L (10-44); POTASSIUM 5.5 mmol/L (3.5-5.1); SODIUM 132 mmol/L (136-145); TCO2 24 mmol/L (25-35); TOTAL PROTEIN 7.6 g/dL (6.3-8.3)
[2018-11-11] MEDS ORDERED: ROCEPHIN 1 GM in NS 50 ML IV SCH (18:00)
[2018-11-11] MEDS: DESYREL PO SCH (22:07)
[2018-11-12] MEDS: DUONEB (A & A) INH SCH ×3 (03:17→11:17)
[2018-11-12 06:31] VITALS: BP 155/72
[2018-11-12] MEDS: BENICAR PO SCH (11:09)
[2018-11-12] MEDS: THERA M PLUS PO SCH (11:10)
[2018-11-12] MEDS: ASPIRIN PO SCH (11:10)
[2018-11-12] MEDS ORDERED: NICODERM PATCH TD ONE (13:02)
--- NOTE | 2018-12-07 11:49 | DISCHARGE SUMMARY ---
ADMISSION DATE: 11/10/2018 DISCHARGE DATE: 11/12/2018 HISTORY OF PRESENT ILLNESS: This is an 83-year-old patient of mine that I follow for COPD, active smoker, peripheral vascular disease, and hypertension. He presented to the ER with nonspecific abdominal pain, an episode of vomiting and just generalized weakness and a fever. He had a temperature when he arrived to the ER but subsequently has had no temperature. He was given empirically some ceftriaxone. He had a chest x-ray that showed some chronic scarring, sometimes difficult to distinguish minimal pneumonitis, although he is not particularly sensitive. He also happened to be taking prednisone that he did not list on his ongoing medicines, probably accounting for the slight elevation of his white count. He was feeling better. Labs improved. His white count dropped from the previous day. He continued to run no fever. We ended up discharging him. He has had a history of some diarrhea, so we are hesitant to use antibiotics, but he was discharged and will be followed up in the office. His blood cultures and urine cultures are negative. Chest x-ray likewise was negative. He had an abdominal film which showed no abnormalities. He is to follow up in the office. ADMITTING DIAGNOSES: 1. Chronic obstructive pulmonary disease. 2. Hypertension. 3. Chronic steroid use. 4. Peripheral vascular disease. 5. Probable upper respiratory infection. DISCHARGE DIAGNOSES: 1. Chronic obstructive pulmonary disease. 2. Hypertension. 3. Chronic steroid use. 4. Peripheral vascular disease. 5. Probable upper respiratory infection. cc: Loco Loyd MD
--- NOTE | 2018-12-07 11:54 | PROGRESS NOTE ---
DATE: 11/10/2018 SUBJECTIVE: An 83-year-old male that was admitted to the hospital the previous night with a background history of hypertension, dyslipidemia, and some PAD. He presented with a fever and his initial vital signs revealed a temperature of 101.6. Today, he is afebrile, and he is currently being treated for his fever, symptomatic treatment with Tylenol. He is getting Rocephin. A nicotine patch, he is a chain smoker. Continues his trazodone 100, Benicar, aspirin, and multivitamins. LABORATORY DATA: White count is better, it is 11,850, hematocrit was 32.6, platelet count was 403. His differential was slight left-shifted, and his repeat comp: Sodium was 132, potassium 5.5, chloride 96, CO2 24, BUN 14, creatinine 0.7, GFR greater than 60, BUN and creatinine ratio is 20, glucose 120. Albumin is a little low at 3.4. He has had multiple serum lactates, 1.6, 0.08, 0.05. His initial urinalysis that was presented, he had trace white cells, 1+ bacteria, and his serologies for flu were negative. With the Rocephin, however, he seems to be doing better. Vital signs are better. We will continue therapy pending cultures. cc: Loco Loyd MD
--- NOTE | 2018-12-09 04:13 | HISTORY AND PHYSICAL ---
HISTORY OF PRESENT ILLNESS: An 83-year-old office patient presented to the emergency room where he was evaluated presenting with some abdominal pain associated with fever, vomiting, and generalized weakness. The patient is somewhat disoriented. The pain is described to being in both left and right lower quadrant, no radiation, mild in nature, aching that supposedly began this afternoon. In the ER, he had a temperature of 101.6, pulse was 122, respiratory rate 24, BP 146/71, O2 saturation was 93%. His chest x-ray: COPD type findings with some fibrosis, questionable small underlying infiltrate. Flat and upright of the abdomen was negative. He had while in the ER a CBC done. White count was 15,430, hematocrit was 35.3, platelet count 408. Sodium was 135, potassium 5.9, chloride 95, CO2 25, BUN was 23, creatinine 1.1, GFR greater than 60, BUN and creatinine ratio 21 indicating a degree of dehydration, glucose was 94, calcium was 8.5, total bilirubin was 0.3. LFTs were normal. Albumin was 3.9. He had flu swabs that were negative, and normal PT. Lactate was 1.6. Troponin was less than 0.01. Amylase and lipase were normal. Urine with pH of 5, 1015 specific gravity, less than 10 microscopic WBCs, epithelial cells, and RBCs. In the ER, he received a liter of 0.9 normal saline, 650 of Tylenol, and 1 g of Rocephin IV followed by another g to make it 2 g but it does not appear that he got the extra one so I would say 1 g. So, he was admitted. He has generalized weakness and fever. PAST MEDICAL HISTORY: ALLERGIES: He has no known allergies. MEDICATIONS AT HOME: Trazodone 100 at bedtime, Benicar 10, and aspirin. He has a background history of hypertension and COPD. He is a current active smoker. REVIEW OF SYSTEMS: The patient has always been very thin and remains thin. He describes some chills. He denies any fever. No change in his visual acuity, irritation to his eyes or eyelids. Ears, nose and throat: No pharyngitis, otitis, or sinusitis. Cardiovascular: He denied chest pain, palpitations, tachyarrhythmias. No orthopnea, PND. He is always dyspneic. Respiratory: He denies a cough. He denies any increase in his chronic shortness of breath. No hemoptysis. Gastrointestinal: He has had some generalized abdominal pain, some vomiting. He denies any diarrhea, nausea, melena, hematochezia, hematemesis. Genitourinary: No dysuria or polyuria. He has a slow stream. Musculoskeletal: No back pain, no inflamed joints. Skin: No reported rashes or lesions. Neurologically, he is just generally weak but no focal neurological deficits. Psychiatric: No change from his baseline, he is normal and with no psychiatric problems. Endocrine: No hayfever or asthma-type symptoms. No history of thyroid disease. Hematological/lymphatic: No clotting or bleeding disorder. Allergic: No sneezing, irritation of his eyes, or rash. PAST MEDICAL HISTORY: The patient has COPD from long-term smoking. He has had some pneumonia in the past, hypertension. He has had some issues with diarrhea lately. SOCIAL HISTORY: He lives with his daughter. He smokes more than a pack a day. He is a nondrinker. Does not abuse any drugs. PHYSICAL EXAMINATION: HEENT: At the time of admission, he has some temporal wasting. Head was normocephalic, otherwise negative. Eyes: PERRL. EOMs intact. Nares patent. TMs intact. Mucous membranes moist. No exudate or pharyngitis noted. NECK: Supple, full range of motion, midline trachea. No lymphadenopathy. No thyromegaly. RESPIRATORY: Diminished breath sounds bilaterally. Flattened AP diaphragms. No consolidative findings appreciated on exam. CARDIOVASCULAR EXAM: He had a regular rhythm and rate. No appreciated murmurs, gallops, clicks, or rubs. GASTROINTESTINAL: He has some normal lower bowel sounds. No organomegaly appreciated. Abdomen was scaphoid. MUSCULOSKELETAL: He had no CVA tenderness. Exam for joints were negative. NEUROLOGICAL: No focality. PSYCHIATRIC: He is oriented only to time but he is alert and oriented. So, he was admitted for an evaluation of fever, COPD. cc: Loco Loyd MD
== END 2018-11-12 15:30 | disposition home or self-care (01) | DRG 192 ==
LOC: P.ED 16:09 → P.MEDSURG 19:50
PROVIDERS: ADMIT Internal Medicine; ATTEND Internal Medicine
CPT/HCPCS: 51701; 71010; 71045; 74000; 74018; 80053; 81001; 82150; 82550; 83605; 83690; 84484; 85025; 85610; 85730; 87040; 87088; 87275; 87276; 87804; 93005; 94640; 94761; 96361; 96365; 96368; 99285; A9270; J0696; J7030; P9612

== ENCOUNTER 2019-02-16 21:20 | Inpatient (IN) ==
[2019-02-16] MEDS ORDERED: DUONEB (A & A) INH ONE (21:44)
[2019-02-16] MEDS ORDERED: MOTRIN PO ONE (21:46)
--- NOTE | 2019-02-16 21:50 | PROVIDER DOCUMENTATION ---
HPI-Fever - General Chief Complaint: Fever Stated Complaint: FEVER Time Seen by Provider: 02/16/19 21:42 Source: patient Allergies/Adverse Reactions: Patient Allergies Allergy/AdvReac Type Severity Reaction Status Date / Time No Known Allergies Allergy Verified 10/28/16 18:00 Home Medications: Home Medication List Medication Instructions Recorded Confirmed Last Taken Type Aspirin 81 mg PO DAILY 09/18/16 11/10/18 10/27/16 09:00 History Multivitamin [Multi-Day Vitamins] 1 each PO DAILY 06/16/18 11/10/18 Unknown History Olmesartan [Benicar] 10 mg PO DAILY 06/16/18 11/10/18 Unknown History Trazodone [Desyrel] 100 mg PO QHS 11/10/18 11/10/18 Unknown History - History of Present Illness-Fever Nature of Presenting Problem: 83 YOM PRESENTS WITH C/O FEVER AND BODY ACHES. HE C/O COUGH AND SOB (SOB AT BASELINE), GENERAL MALAISE AND CONGESTION. HE DENIES CP, N/V/D. 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 denies: nausea, vomiting Similar Symptoms Previously?: No Recently seen or treated by another doctor?: No - Glascow Coma Score Best Eye Response (Hiram): (4) open spontaneously Best Verbal Response (Prashanth): (5) oriented Best Motor Response (Prashanth): (6) obeys commands Review of Systems - Adult - REVIEW OF SYSTEMS - ADULT Constitutional: reports: chills, fever, fatique. denies: no symptoms reported, see HPI, night sweats, weight gain, weight loss, other Eyes: reports: no symptoms reported. denies: see HPI, discharge, dry eyes, decreased vision, blurred vision, double vision, eye pain, redness, other Ears, Nose, Mouth & Throat: reports: no symptoms reported. denies: see HPI, ear discharge, ear pain, hearing loss, tinnitus, epistaxis, sinus problem, nose pain, loose teeth, mouth/dental pain, mouth swelling, hoarseness, throat pain, throat swelling, other Cardiovascular: reports: no symptoms reported. denies: see HPI, chest pain, edema, heart murmur, irregular heart rate, orthopnea, palpitations, poor circulation, PND, syncope, other Respiratory: reports: chronic cough, cough, dyspnea on exertion, wheezing Gastrointestinal: reports: no symptoms reported. denies: see HPI, abdominal pain, hematemesis, constipation, diarrhea, difficulty swallowing, frequent heartburn, nausea, poor appetite, rectal bleeding, vomiting, other Genitourinary: reports: no symptoms reported. denies: see HPI, dysuria, discharge, frequency, flank pain, frequent UTI's, hematuria, hesitency, incontinence, urinary retention, urgency, other Musculoskeletal: reports: no symptoms reported. denies: see HPI, bone pain, back pain, frequent leg cramps, joint pain, joint swelling, muscle aches, muscle weakness, neck pain, other Integumentary: reports: no symptoms reported. denies: see HPI, hives, hair loss, itching, mole changes, nail changes, rash, skin sores/ulcer, skin thickening, other Neurological: reports: no symptoms reported. denies: see HPI, ataxia, dizziness/vertigo, headache/migraines, loss of balance, numbness, paresthesia, seizure, slurred speech, syncope, tremors, other Psychiatric: reports: no symptoms reported. denies: see HPI, anxiety, anti- depressant use, alcohol/drug dependence, depression, emotional problems, insomnia, panic attacks, suicidal thoughts, other Endocrine: reports: no symptoms reported. denies: see HPI, change in skin pigment, excessive sweating, goiter, cold intolerance, heat intolerance, increased hunger, increased thirst, polyuria, other Hematologic/Lymphatic: reports: no symptoms reported. denies: see HPI, blood clots, easy bruising, low blood count, lymphedema, prolonged bleeding, swollen lymph nodes, transfusions, other Allergic/Immunologic: reports: no symptoms reported. denies: see HPI, allergic reactions, allergic rhinitis, asthma, eczema, food allergy, frequent infections, hay fever, hives, positive PPD, urticaria, other Past History - Adult - PAST MEDICAL HISTORY-ADULT Review of Records: reports: Nursing Assessment Review, Social history reviewed & non-contributory. Major Childhood Illnesses: reports: denies history Cardiovascular: reports: HTN Respiratory: reports: COPD, pneumonia Gastrointestinal: reports: denies history Obstetrical/Gynecological: reports: denies history Genitourinary: reports: denies history Musculoskeletal: reports: denies history Neurological: reports: denies history Endocrine/Immune: reports: denies history Other Conditions: reports: denies history - PRIOR SURGERIES/PROCEDURES Surgical/Procedure History: reports: none - IMMUNIZATION STATUS Childhood Immunizations: See Nurse Assessment Flu Vaccine: See Nurse Assessment - FAMILY HISTORY Family History: reviewed, not pertinent - SOCIAL HISTORY Smoking: cigarettes, greater than 1 pack/day Substance Use: denies Alcohol Use Frequency: never Physical Exam-General - PHYSICAL EXAM-ADULT Initial Vital Signs Reviewed: Yes - CONSTITUTIONAL General Appearance: appears well, alert, no apparent distress - EYES Eyes: PERRL/EOMI - HEAD, EARS, NOSE, MOUTH & THROAT HENMT: normocephalic/atraumatic, moist mucous membranes, normal ENT inspection - NECK Neck: non-tender, full range of motion - RESPIRATORY Respiratory: chest non-tender, lungs clear, no pleuratic chest pain, no respiratory distress, no accessory muscle use, rhonchi, wheezing - CARDIOVASCULAR Cardiovascular: normal peripheral pulses, regular rate, rhythm, no edema - GASTROINTESTINAL (ABDOMEN) Abdominal Exam: normal bowel sounds, non tender, soft - LYMPHATIC Lymphatic: no adenopathy - MUSCULOSKELETAL Back Exam: normal inspection Extremity: normal range of motion, non-tender, normal gait - SKIN Integumentary: normal color, normal turgor, warm/dry - NEUROLOGIC Neurologic: grossly normal - PSYCHIATRIC Psych/Mental Status: normal mood/affect, oriented x 3 Progress - PLAN OF CARE/RESULTS Progress/Plan/Lab Results: Vital Signs - 8 hr 02/16/19 21:28 02/16/19 21:57 02/16/19 23:17 Temperature 102.1 F H 99.9 F H Pulse Rate 105 H 94 H 90 Respiratory Rate 16 23 22 Blood Pressure 121/55 115/55 O2 Sat by Pulse Oximetry 92 L 96 100 02/16/19 23:35 Temperature Pulse Rate 89 Respiratory Rate 15 Blood Pressure O2 Sat by Pulse Oximetry 100 Laboratory Results - last 24 hr 02/16/19 02/16/19 02/16/19 21:54 21:54 21:54 WBC 14.09 H RBC 3.89 L Hgb 10.6 L Hct 32.4 L MCV 83.3 MCH 27.2 MCHC 32.7 L RDW Std Deviation 15.3 H Plt Count 376 MPV 10.6 H Immature Gran % (Auto) 0.4 Neut % (Auto) 89.1 H Lymph % (Auto) 2.3 L Towns % (Auto) 4.2 Eos % (Auto) 3.8 Baso % (Auto) 0.2 Immature Gran # (Auto) 0.06 H Neut # (Auto) 12.56 H Lymph # (Auto) 0.32 L Towns # (Auto) 0.59 Eos # (Auto) 0.53 Baso # (Auto) 0.03 Segmented Neutrophils 90 H Band Neutrophils 3 H Lymphocytes 5 L Monocytes 2 Hypochromia OCCASIONAL Poikilocytosis OCCASIONAL Anisocytosis OCCASIONAL Microcytosis OCCASIONAL Ovalocytes OCCASIONAL PT 13.6 INR 0.99 PTT (Actin FS) 24.0 Sodium Potassium Chloride Carbon Dioxide Anion Gap BUN Creatinine Estimated GFR/1.73 m2 BUN/Creatinine Ratio Glucose Calculated Osmolality Calcium Magnesium Total Bilirubin AST ALT Alkaline Phosphatase Creatine Kinase Troponin T Total Protein Albumin Globulin Albumin/Globulin Ratio Plasma Lactate 1.1 Influenza A (Rapid) Influenza B (Rapid) 02/16/19 02/16/19 02/16/19 22:09 22:45 22:45 WBC RBC Hgb Hct MCV MCH MCHC RDW Std Deviation Plt Count MPV Immature Gran % (Auto) Neut % (Auto) Lymph % (Auto) Towns % (Auto) Eos % (Auto) Baso % (Auto) Immature Gran # (Auto) Neut # (Auto) Lymph # (Auto) Towns # (Auto) Eos # (Auto) Baso # (Auto) Segmented Neutrophils Band Neutrophils Lymphocytes Monocytes Hypochromia Poikilocytosis Anisocytosis Microcytosis Ovalocytes PT INR PTT (Actin FS) Sodium 128 L Potassium 5.1 Chloride 95 L Carbon Dioxide 22 L Anion Gap 11 BUN 31 H Creatinine 1.0 Estimated GFR/1.73 m2 > 60 BUN/Creatinine Ratio 31 Glucose 135 H Calculated Osmolality 266 Calcium 8.4 L Magnesium 1.7 Total Bilirubin < 0.15 L AST 26 ALT 13 Alkaline Phosphatase 74 Creatine Kinase 53 Troponin T < 0.010 Total Protein 7.0 Albumin 3.7 Globulin 3.0 Albumin/Globulin Ratio 1.0 Plasma Lactate Influenza A (Rapid) NEGATIVE Influenza B (Rapid) NEGATIVE Orders Category Date Time Status Admit - [facility] Routine AdmDCTranf 02/16/19 23:26 Active Activity - Up Ad Gretel ORDERED Care 02/16/19 23:26 Active Cardiac Monitoring DIRECTED Care 02/16/19 21:43 Active IV Insertion ORDERED Care 02/16/19 21:43 Completed Neurological Check PRN Care 02/16/19 23:26 Active Notify MD of + Sepsis Screen NOW Care 02/16/19 21:43 Active Nursing [Misc. NRSG Communication Order] DIRECTED Care 02/16/19 21:57 Active Saline Loc DIRECTED Care 02/16/19 23:26 Active Vital Signs Order ROUTINE Care 02/16/19 23:26 Active Z-Document. for Tele Applied ORDERED Care 02/16/19 23:28 Active Heart Healthy Diet Diet 02/16/19 23:28 Active CHEST-2 VIEWS [RAD] Stat Exams 02/16/19 21:42 Taken BLOOD CULTURE [BLDCUL] Stat Lab 02/16/19 21:43 Ordered CBC WITH DIFF [HEME] Stat Lab 02/16/19 21:54 Completed CK PROFILE [SP CHEM] Stat Lab 02/16/19 22:45 Completed COMPREHENSIVE METABOLIC PANEL [CHEM] Stat Lab 02/16/19 22:45 Completed Flu [INFLUENZA SCREEN PL] Stat Lab 02/16/19 22:09 Completed LACTATE, PLASMA [CHEM] Lab 02/16/19 21:54 Completed LACTATE, PLASMA [CHEM] Lab 02/17/19 00:45 Uncollected LACTATE, PLASMA [CHEM] Lab 02/17/19 03:45 Uncollected MAGNESIUM [CHEM] Stat Lab 02/16/19 22:45 Completed PROTIME WITH INR [COAG] Stat Lab 02/16/19 21:54 Completed PTT [COAG] Stat Lab 02/16/19 21:54 Completed TROPONIN T Stat Lab 02/16/19 22:[address] W/POSS RFLX CULT [URINALYSIS] Stat Lab 02/16/19 21:43 Uncollected Albuterol 2.5MG/Ipratrop 0.5MG [Duoneb (A & A)] Med 02/16/19 23:29 Discontinued 3 ml .ROUTE .STK-MED ONE Albuterol 2.5MG/Ipratrop 0.5MG [Duoneb (A & A)] Med 02/16/19 21:44 Discontinued 3 ml INH NOW ONE Albuterol 2.5MG/Ipratrop 0.5MG [Duoneb (A & A)] Med 02/16/19 23:30 Active 3 ml INH RTQ4H Ibuprofen [Motrin] Med 02/16/19 22:07 Discontinued 400 mg .ROUTE .STK-MED ONE Ibuprofen [Motrin] Med 02/16/19 21:46 Discontinued 400 mg PO NOW ONE Levofloxacin 500 mg/D5w [Levaquin 500 mg/D5w] Med 02/16/19 22:38 Discontinued 500 mg in 100 ml IV NOW Aerosol Treatments Routine Oth 02/16/19 21:44 Completed Aerosol Treatments Routine Oth 02/16/19 23:28 Completed Aerosol Treatments Stat Oth 02/16/19 21:44 Completed Aerosol Treatments Stat Oth 02/16/19 23:28 Completed Oxygen Device Routine Oth 02/16/19 23:27 Active Oxygen Device Stat Oth 02/16/19 21:43 Completed Telemetry [OM.EQ] Routine Oth 02/16/19 23:26 Active EKG [EKG] Stat Ther 02/16/19 21:50 Ordered Transfer/Admit Order [TRANSFER] Routine Transfer 02/16/19 23:28 Ordered 2340: PT IS IN AGREEMENT WITH PLAN TO ADMIT, GIVE ABX AND STERIODS. Result Diagrams: 02/16/19 21:54 02/16/19 22:45 - XRAY 1 XRAY Study: Chest Impression: Abnormal (RML PNA) Departure - Departure Date of Disposition Decision: 02/16/19 Time of Disposition Decision: 23:50 DIAGNOSIS: Pneumonia, COPD (chronic obstructive pulmonary disease), Weakness generalized Disposition: ADMITTED INPATIENT 09 Certified Medical Emergency: Emergent Condition: Stable Referrals and Follow-Ups: Loco Loyd MD [Primary Care Provider] - - Critical Care Note This patient required my direct & personal management of CC.: No Attestation - Physician/ MARIA DE JESUS Attestation Patient care was provided by Advanced Practice Provider:: Yes Advanced Practice Provider:: Alexandra Chu Advanced Practice Provider documentation review:: The Mid-level provider documentation, treatment plan and medical decision making was reviewed by the physician who agrees with all treatment and medical decision making by the [facility]. The physician spent face to face time with patient:: No Advanced Practice Provider documentation review:: Supervising physician onsite and consulted in the evaluation and care of this patient. The physician did not have a face to face encounter with the patient.
[2019-02-16] MEDS ORDERED: MOTRIN ONE (22:07)
[2019-02-16 22:24] LABS: BASO# 0.03 X1000 (0.0-0.2); BASO% 0.2 % (0.0-0.8); EOS# 0.53 X1000 (0.0-0.7); EOS% 3.8 % (0.0-10.0); HEMATOCRIT 32.4 % (42.0-52.0); HEMOGLOBIN 10.6 g/dL (14.0-18.0); IMM GRAN# 0.06 X1000 (0.0-0.04); IMM GRAN% 0.4 % (0.0-0.5); LYMPH# 0.32 X1000 (1.2-3.4); LYMPH% 2.3 % (20.5-51.1); MCH 27.2 PG (27-31); MCHC 32.7 g/dL (33-37); MCV 83.3 FL (81-99); MONO# 0.59 X1000 (0.11-0.59); MONO% 4.2 % (1.7-9.3); MPV 10.6 FL (7.4-10.4); NEUT# 12.56 X1000 (1.4-6.5); NEUT% 89.1 % (42.2-75.2); PLT 376 X1000 (130-400); RBC 3.89 XMIL (4.7-6.1); RDW 15.3 % (11.5-14.5); WBC 14.09 X1000 (4.8-10.8)
[2019-02-16 22:30] LABS: BANDS 3 % (0-1); LYMPHS 5 % (21-51); MONO 2 % (1-9); SEGS 90 % (42-75)
[2019-02-16 22:31] LABS: ANISOCYTOSIS OCCASIONAL; HYPOCHROM OCCASIONAL; MICROCYTOSIS OCCASIONAL; POIKILOCYTOSIS OCCASIONAL
[2019-02-16 22:32] LABS: OVALOCYTES OCCASIONAL
[2019-02-16] MEDS ORDERED: LEVAQUIN 500 MG/D5W 500 MG/100 ML IVPB IV ONE (22:38)
[2019-02-16 22:41] LABS: INR 0.99; PROTIME 13.6 Seconds (11.0-16.0)
[2019-02-16 22:59] LABS: INFLUENZA A NEGATIVE (NEGATIVE); INFLUENZA B NEGATIVE (NEGATIVE)
[2019-02-16 23:20] LABS: AGAP 11; ALBUMIN 3.7 g/dL (3.5-5.0); ALKALINE PHOSPHATASE 74 U/L (32-122); BUN 31 mg/dL (8-22); CALCIUM 8.4 mg/dL (8.8-10.2); CHLORIDE 95 mmol/L (98-107); CK PROFILE 53 U/L (24-204); COSMO 266; ESTIMATED GFR > 60; GLUCOSE 135 mg/dL (70-104); GOT 26 U/L (10-34); GPT 13 U/L (10-44); MAGNESIUM 1.7 mg/dL (1.5-2.7); POTASSIUM 5.1 mmol/L (3.5-5.1); SODIUM 128 mmol/L (136-145); TCO2 22 mmol/L (25-35); TOTAL BILIRUBIN < 0.15 mg/dL (0.20-1.00)
[2019-02-16] MEDS ORDERED: DUONEB (A & A) ONE (23:29)
[2019-02-16] MEDS: DUONEB (A & A) INH SCH (23:35)
[2019-02-16] MEDS ORDERED: NICODERM PATCH TD ONE (23:51)
[2019-02-17] MEDS ORDERED: NS 1,000 ML IV ONE ×3 (00:30→00:35)
[2019-02-17] MEDS ORDERED: VANCOMYCIN 1 GM/NS 1 GM/250 ML IVPB IV ONE (00:35)
[2019-02-17] MEDS ORDERED: NICODERM PATCH TD ONE ×2 (01:45→09:00)
[2019-02-17] MEDS: DUONEB (A & A) INH SCH ×6 (03:25→22:35)
[2019-02-17 04:42] LABS: BILIRUBIN URINE NEGATIVE (NEGATIVE); BLOOD URINE NEGATIVE (NEGATIVE); CLARITY CLEAR (CLEAR); COLOR YELLOW; GLUCOSE URINE NEGATIVE (NEGATIVE); KETONE URINE NEGATIVE (NEGATIVE); LEUKOCYTES URINE NEGATIVE (NEGATIVE); NITRITE URINE NEGATIVE (NEGATIVE); PROTEIN URINE TRACE mg/dL (NEGATIVE); SP GRAVITY URINE 1.015; UROBILINOGEN URINE NORMAL
[2019-02-17 04:51] LABS: URINE BACTERIA 2+ /HFP; URINE CAST NONE SEEN /LPF; URINE CRYSTAL NONE SEEN /HPF; URINE EPITHELIAL CELLS <10 /HPF (<10); URINE RBC <10 /HPF (<10); URINE SOURCE CLEAN CATCH; URINE WBC 0-1 /HPF (<10); URINE YEAST NONE SEEN /HPF
--- NOTE | 2019-02-17 07:52 | Diag Imaging Result Doc PS360 ---
EXAM: CHEST-2 VIEWS - 02/16/2019 HISTORY: cough, congestion, wheeze, fever TECHNIQUE: Chest two views COMPARISON: 11/10/2018 portable chest, 10/11/2018 chest two views FINDINGS: Heart size is normal. There are COPD/emphysematous changes. There is pulmonary fibrosis. There is apparent superimposed infiltrate at the right midlung, most notably at the superior segment of the right lower lobe. There is no pleural effusion or pneumothorax identified. IMPRESSION: COPD/emphysematous changes and pulmonary fibrosis. Apparent superimposed infiltrate at right midlung, which may relate to pneumonia. Follow-up is recommended. Electronically signed by Peter Moralse 02/17/2019 7:21 AM
[2019-02-17] MEDS: LEVAQUIN 500 MG/D5W 500 MG/100 ML IVPB IV SCH (09:04)
[2019-02-17] MEDS: SOLU-MEDROL IV SCH ×2 (09:11→20:22)
--- NOTE | 2019-02-17 13:55 | PROGRESS NOTE ---
DATE: 02/17/2019 SUBJECTIVE: He was admitted last night with a fever, some chronic obstructive pulmonary disease, emphysematous changes, fibrosis, with a possible superimposed pneumonia with an elevated white count. He was placed on antibiotics. He was given albuterol and Atrovent treatment, methylprednisolone 80 IV b.i.d., 500 mg of levofloxacin, ibuprofen, nicotine patch and vancomycin. He is much better today. No fever, no chills. No vomiting. No diarrhea. Just coughing a little bit but not much phlegm. ASSESSMENT AND PLAN: I will continue awaiting data. cc: Loco Loyd MD
--- NOTE | 2019-02-17 14:08 | HISTORY AND PHYSICAL ---
HISTORY OF PRESENT ILLNESS: Mr. Flannery is an 83-year-old patient of mine, heavy smoker with chronic COPD, who came to the emergency room, brought in by his daughter because he had some issues with running of fever with body aches. He was complaining of a cough and shortness of breath over his baseline shortness of breath, general malaise, and congestion. He denied chest pain, nausea, vomiting, or diarrhea. The story is he had a temperature of greater than 102. He has chronic rattling cough and chronic bronchitis with phlegm production every day. He was seen in the ER with a temperature of 102.1, pulse of 105, respiratory rate 16, blood pressure 121/55. He had a chest x-ray report which showed COPD, emphysematous changes, pulmonary fibrosis, and apparent superimposed infiltrate in the right mid lung and most notably at the superior segment on the right lower lobe. There is no pleural effusion or pneumothorax. His laboratory had a 14,000 white count, hematocrit was 32.4, platelet count was 376,000. Serologies were negative for flu. Urinalysis showed 2+ bacteria but no cellular medicine. His plasma lactates were all normal. Troponin and CK were normal. Electrolytes - sodium was 128, off in the case, potassium 5.1, CO2 22, BUN 31, creatinine 1, and GFR greater than 60. Cardiac enzymes were otherwise negative. So, the patient was admitted for sepsis with therapy. cc: Loco Loyd MD
[2019-02-18] MEDS: DUONEB (A & A) INH SCH ×6 (03:14→23:18)
[2019-02-18 07:00] LABS: HEMATOCRIT 31.6 % (42.0-52.0); HEMOGLOBIN 10.4 g/dL (14.0-18.0); IMM GRAN# 0.01 X1000 (0.0-0.04); IMM GRAN% 0.1 % (0.0-0.5); LYMPH# 0.37 X1000 (1.2-3.4); LYMPH% 4.9 % (20.5-51.1); MCH 26.9 PG (27-31); MCHC 32.9 g/dL (33-37); MCV 81.9 FL (81-99); MONO# 0.32 X1000 (0.11-0.59); MONO% 4.2 % (1.7-9.3); MPV 9.8 FL (7.4-10.4); NEUT# 6.85 X1000 (1.4-6.5); NEUT% 90.8 % (42.2-75.2); PLT 385 X1000 (130-400); RBC 3.86 XMIL (4.7-6.1); RDW 15.3 % (11.5-14.5); WBC 7.55 X1000 (4.8-10.8)
[2019-02-18 07:06] LABS: AGAP 12; ALBUMIN 3.9 g/dL (3.5-5.0); ALKALINE PHOSPHATASE 78 U/L (32-122); BUN 19 mg/dL (8-22); CALCIUM 9.1 mg/dL (8.8-10.2); CHLORIDE 96 mmol/L (98-107); COSMO 271; CREATININE 0.6 mg/dL (0.7-1.2); ESTIMATED GFR > 60; GLUCOSE 180 mg/dL (70-104); GOT 19 U/L (10-34); GPT 12 U/L (10-44); POTASSIUM 4.3 mmol/L (3.5-5.1); SODIUM 132 mmol/L (136-145); TCO2 24 mmol/L (25-35); TOTAL PROTEIN 7.5 g/dL (6.3-8.3)
[2019-02-18] MEDS ORDERED: VANCOMYCIN IV PER PHARMACY MISC SCH (09:00)
--- NOTE | 2019-02-18 09:16 | PROGRESS NOTE ---
DATE: 02/18/2019 SUBJECTIVE: Robin Flannery, who is admitted with COPD, fibrosis, plus/minus pneumonia. Today, his white count is 7550, hematocrit is 31.6, platelet count 385, 90% polys but he is on steroids. OBJECTIVE: Vital signs: His vital signs today, temperature is 97.9, pulse is 116, respiratory rate is 18, BP 185/85, 98% room air. His cultures however, he has got a no growth on his urine, and his blood cultures are now growing a gram-positive cocci. He is currently on Levaquin and we are going to change him to vancomycin and go from there. cc: Loco Loyd MD
[2019-02-18] MEDS: LEVAQUIN 500 MG/D5W 500 MG/100 ML IVPB IV SCH (09:36)
[2019-02-18] MEDS: SOLU-MEDROL IV SCH ×2 (09:41→20:01)
--- NOTE | 2019-02-18 09:57 | Diag Imaging Result Doc PS360 ---
EXAM: CHEST-2 VIEWS HISTORY: pneumonia TECHNIQUE: Chest two views COMPARISON: 02/16/2019 FINDINGS: The lungs are hyperexpanded. The pulmonary vessels are small. Prominent atherosclerosis. No cardiomegaly. Persistent infiltrates in the mid right lung. Apparent scarring in the upper right and lower left lung. IMPRESSION: Stable chest. Electronically signed by David Duran 02/18/2019 9:55 AM
[2019-02-18] MEDS: VANCOMYCIN 1,200 MG in NS 250 ML IV SCH (10:10)
[2019-02-18 10:36] LABS: ANISOCYTOSIS 1+; BANDS 1 % (0-1); LYMPHS 3 % (21-51); MONO 2 % (1-9); SEGS 94 % (42-75)
[2019-02-18] MEDS: DESYREL PO SCH (20:01)
[2019-02-18] MEDS ORDERED: ZOFRAN IV PRN (21:12)
[2019-02-19] MEDS: DUONEB (A & A) INH SCH ×6 (03:16→23:49)
[2019-02-19] MEDS: LEVAQUIN 500 MG/D5W 500 MG/100 ML IVPB IV SCH (09:57)
[2019-02-19] MEDS: SOLU-MEDROL IV SCH ×2 (09:57→21:30)
[2019-02-19] MEDS: NICODERM PATCH TD SCH (13:47)
--- NOTE | 2019-02-19 19:07 | PROGRESS NOTE ---
DATE: 02/19/2019 SUBJECTIVE: He has COPD, 5-kwfx-t-day smoker, hospitalized because of worsening shortness of breath and possible superimposed pneumonia. LABORATORY DATA: Microbiology: Urine had no growth. He had 1 blood culture that had no growth and 1 that had coag-negative Staphylococcus. Reports today reveal that yesterday's chest x-ray was hyperexpanded. The pulmonary vessels are small. Prominent atherosclerosis. No cardiomegaly. Persistent infiltrates in the right mid lung. I think this is all going to be scarring. OBJECTIVE: Vital Signs: Today he is afebrile. Pulse is 95, respiratory rate 18, BP 177/76, O2 saturation 98. ASSESSMENT/PLAN: I think we need to be thinking about getting him ready to go to the house. He is nontoxic in nature. I think I am going to send him in the morning. cc: Loco Loyd MD
[2019-02-19] MEDS: VANCOMYCIN 1,200 MG in NS 250 ML IV SCH (21:30)
[2019-02-19] MEDS: DESYREL PO SCH (21:30)
[2019-02-20] MEDS: DUONEB (A & A) INH SCH ×3 (04:10→11:30)
[2019-02-20 06:17] VITALS: BP 160/66
[2019-02-20] MEDS: NICODERM PATCH TD SCH (07:59)
[2019-02-20] MEDS: SOLU-MEDROL IV SCH (07:59)
[2019-02-20] MEDS ORDERED: LEVAQUIN PO SCH (09:00)
--- NOTE | 2019-02-28 07:45 | EKG Report ---
Test Performed on : 02/17/2019 05:55:55 AM Test Reason : COPD, FEVER, SEPSIS W/U Blood Pressure : / mmHG Vent. Rate : 068 BPM Atrial Rate : 068 BPM P-R Int : 210 ms QRS Dur : 076 ms QT Int : 432 ms P-R-T Axes : 075 -17 063 degrees QTc Int : 459 ms Sinus rhythm. with 1st degree AV block. Cannot rule out Anterior infarct , age undetermined Abnormal ECG When compared with ECG of 11-OCT-2018 22:29, No significant change was found Confirmed by Loco Loyd MD ([id number]) on 02/28/2019 7:45:14 AM
--- NOTE | 2019-03-12 18:59 | HISTORY AND PHYSICAL ---
HISTORY OF PRESENT ILLNESS: The patient is a clinic patient of [facility] who I have been seeing for some years now. He presented complaining of fever. Story is he presented with fever and body aches. He is complaining of a cough and shortness of breath above his baseline shortness of breath. Also, general malaise and congestion. Denies any chest pain, nausea, vomiting, or diarrhea. He has a history of diverticulitis in the past. He reported to the ER with a temperature of 102 and a background of COPD and some peripheral arterial disease. MEDICATIONS: Aspirin 81 mg, multivitamin, Benicar 10, trazodone 100. ALLERGIES: He has no allergies. REVIEW OF SYSTEMS: He reportedly had chills, fever, and fatigue. No night sweats. No significant change in weight. Eyes: No change in visual acuity or appearance of his eyes. Ears, nose, and throat: No pharyngitis, otitis, or sinusitis. Cardiovascular: He denied chest pain. He denied palpitations, PND, orthopnea. Respiratory: He has had a cough and wheezes. He has a chronic cough with chronic dyspnea. Gastrointestinal: He has had no nausea, vomiting, diarrhea, or constipation. He has a history of colitis and diverticulitis in the past. Genitourinary: He has no polyuria, dysuria, hematuria, or pyuria. Musculoskeletal: He has weakness in the legs. Psychiatric: Negative. SOCIAL HISTORY: He is a one pack a day smoker. PAST MEDICAL HISTORY: COPD, pneumonia, hypertension. PAST SURGICAL HISTORY: No surgical procedures that he can attest to. PHYSICAL EXAMINATION: GENERAL: In the ER he was in no apparent distress. EYES: PERRL. EOMs intact. HEAD AND NECK: Normocephalic. Some temporal wasting. Nares patent. Oropharynx: Moist mucus membranes. Neck supple, trachea midline, no adenopathy. Bounding carotids without thyromegaly. LUNGS/CHEST: Increased diameter. Flattened diaphragms. Diminished breath sounds. Tachypneic. Rhonchi throughout. No consolidative findings. CARDIOVASCULAR: Regular rhythm and rate. No murmurs, gallops, clicks, or rubs. ABDOMEN: Soft. No hepatosplenomegaly. No CVA tenderness. Positive bowel sounds. EXTREMITIES: Negative for cyanosis, clubbing or edema. NEUROLOGICAL: Intact. No focal neurological deficits. VITAL SIGNS: At the time of admission his temperature was 102.1, pulse 105, respiratory rate 16, blood pressure 122/55, O2 saturation was 92%. DATA BASE: In the ER, his white count was 14,000, hematocrit 32.4, platelet count 376,000. He had a left shift with 89 polys. INR was 0.99. Plasma lactate was 1.1. Sodium 128, potassium 5.1, chloride 95, CO2 22, BUN 31, creatinine 1, GFR greater than 60, BUN/creatinine ratio 31, glucose 135, calcium 8.4, magnesium 1.7, bilirubin less than 0.15, AST 26, ALT 13, alkaline phosphatase 74. CK 53. Troponin 0.01. Total protein 7. Albumin 3.7. Globulin 3. Influenza swabs were negative. Blood cultures were drawn. He had an IV inserted. He was given Albuterol treatments and Ibuprofen. He was given some levofloxacin. IMAGING: His x-rays showed a right middle lobe pneumonia and COPD. He was referred to me and admitted to my service. cc: Loco Loyd MD
--- NOTE | 2019-03-12 19:44 | DISCHARGE SUMMARY ---
ADMISSION DATE: 02/17/2019 DISCHARGE DATE: 02/20/2019 HISTORY: The patient was admitted the wee hours of the morning on 02/16/2019 at 2350 with pneumonia and COPD via the emergency room. MICROBIOLOGY: He initially had one blood culture that was read as positive but it grew out coagulase negative Staphylococcus. The other culture was negative. The urine was negative. LABORATORY DATA: He had a 14,000 white count on admission. Two days later it was 7,550. Hematocrit ranged between 32.4 and 31.6. Platelet count was in the mid to high 300s. He had a left shift. Coagulation profile was fine. His sodium was 132 at the time of discharge. Potassium 4.3, chloride 96, CO2 24, BUN 19, creatinine 0.6, GFR greater than 60, BUN/creatinine ratio 32, glucose 180, calcium 9.1, bilirubin 0.3. LFTs were normal. Lactates were all normal. Urinalysis showed specific gravity of 1.015, 2+ protein. Serology negative for flu and strep. IMAGING: He had a chest x-ray done on 02/16/2019 with COPD, emphysematous changes, pulmonary fibrosis, and there was an apparent superimposed infiltrate of the right mid lung which may relate to pneumonia but was not exclusively pneumonia. A followup film showed the lungs to be hyperexpanded, pulmonary vessels are small, prominent atherosclerosis, no cardiomegaly, persistent infiltrate in the mid right lung, apparent scarring in the right upper and left lower lung. HOSPITAL COURSE: While in the hospital he received his olmesartan 20, nebulizer treatments, Ibuprofen, levofloxacin, nicotine patch, and he was better within two days. He was also on vancomycin. He got some methylprednisolone early on. We switched him to Levaquin. He was much better. We thought he had a Staphylococcus culture, that is why we started him on vancomycin. His chest x-rays show so much scar tissue it is hard to define a pneumonia. So, he was discharged home after getting the negative report on the cultures. He was given some Levaquin and he will follow up as an outpatient. cc: Loco Loyd MD
== END 2019-02-20 15:40 | disposition home or self-care (01) | DRG 190 ==
LOC: P.ED 21:20 → P.MEDSURG 02-17 01:07
PROVIDERS: ADMIT Internal Medicine; ATTEND Internal Medicine